=== PATIENT | female | born 1950 | race Caucasian/White ===

== ENCOUNTER → 2017-05-01 | Outpatient (CLI) | payer MEDICARE, MEDICAID, SELFPAY | PROVIDERS: Family Provider Family Medicine; Visit Provider Orthopaedic Surgery | DX: S42.255D Nondisplaced fracture of greater tuberosity of left humerus, subsequent encounter for fracture with routine healing (principal) | CPT/HCPCS: 73030 ==

== ENCOUNTER 2017-05-09 09:59 | Day surgery (SDC) | payer MEDICARE, MEDICAID, SELFPAY | END 2017-05-09 10:30 | disposition home or self-care (01) | PROVIDERS: Family Provider Family Medicine; Visit Provider Nurse Anesthetist, Certified Registered | DX: M51.16 Intervertebral disc disorders with radiculopathy, lumbar region (principal) | CPT/HCPCS: 62323; J1030; Q9966 ==

== ENCOUNTER 2017-06-02 19:49 | Observation (INO) | payer MEDICARE, MEDICAID, SELFPAY ==
[2017-06-02 19:49] VITALS: BP 159/86; PULSE 68; RESP 18; TEMP 36.9; O2SAT 92; BMI 24.4
--- NOTE | 2017-06-02 19:59 | XR_ITS ---
XR chest 2V HISTORY: ITS.REASON: CHEST PAIN ORDERING PHYSICIAN: Gaston Palacios MD PATIENT AGE: 66 years COMPARISON: None available FINDINGS: The cardiomediastinal silhouette and pulmonary vascularity are within normal limits. No lobar consolidation or collapse is evident. On the lateral view there is a 11 mm nodular opacity overlying the T6 vertebral body inferiorly which may be related to an overlying osteophyte. CT or follow-up radiograph may confirm. The remaining lungs are clear. No acute bony anomalies. IMPRESSION: 1. No acute finding. 2. Nodular opacity overlying T6 which may be due to an overlying osteophyte. Follow-up may confirm
[2017-06-02 20:16] LABS: Basophils % 0.3 % (0.1-2.0); Eosinophils # 0.1 K/mm3 (0.0-0.4); Eosinophils % 2.2 % (0.1-12.0); Lymphocytes # 2.2 K/mm3 (0.7-4.5); Lymphocytes % 33.4 K/mm3 (10-50); Mean Corpuscular HGB Conc 33.2 g/dL (31.8-35.4); Mean Corpuscular Hemoglobin 29.1 pg (27.0-31.2); Mean Corpuscular Volume 87.6 fl (81-99); Mean Platelet Volume 7.4 fl (7.4-10.4); Monocytes # 0.4 K/mm3 (0.1-1.0); Monocytes % 5.9 % (1.7-9.3); Neutrophils # 3.8 K/mm3 (1.8-7.8); Neutrophils % 58.2 % (37.0-80.0); Platelet Count 264 K/mm3 (142-424); Red Blood Count 4.45 M/mm3 (4.20-5.40); Red Cell Distribution Width 13.9 % (11.5-17.5); White Blood Count 6.5 K/mm3 (4.8-10.8)
[2017-06-02 20:43] LABS: Alanine Aminotransferase 15 U/L (12-78); Albumin Level 3.4 gm/dL (3.4-5.0); Alkaline Phosphatase 109 U/L (46-116); Anion Gap 10.2 mEq/L (5-15); Aspartate Amino Transferase 8 U/L (15-37); Bilirubin,Total 0.3 mg/dL (0.2-1.0); Blood Urea Nitrogen 20 mg/dL (7-18); Calcium 8.9 mg/dL (8.5-10.1); Carbon Dioxide 28 mmol/L (21.0-32.0); Chloride 105 mmol/L (98-107); Creatine Kinase 32 U/L (26-192); Creatinine Clearance Estimated 52 mL/min (0-300); Creatinine,Serum 1.11 mg/dL (0.55-1.02); Estimated Glomerular Filt Rate 49 ml/min (>60); GFR (African American) 60 ML/MIN (>60); Globulin 3.3 gm/dl (1.3-3.2); Glucose 121 mg/dL (74-106); Potassium 4.2 mmoL/L (3.5-5.1); Sodium 139 mmol/L (136-145); Total Protein,Serum 6.7 gm/dL (6.4-8.2); Troponin I < 0.02 ng/ml (0.00-0.06)
[2017-06-02 20:46] LABS: CKMB Relative Index 1.6 U/L (0-4.0); Creatine Kinase MB < 0.5 mg/ml (0.0-3.6)
--- NOTE | 2017-06-02 22:19 | HMH.EDCP ---
ED Disposition Clinical Impression: Chest pain Qualifiers: Chest pain type: precordial pain Qualified Code(s): R07.2 - Precordial pain Disposition: Admitted as Observation Condition on Discharge: Good Referrals: Gaston Palacios MD [Primary Care Provider] - - Critical Care Critical Care Time: No Attestation: On 06/02/17, the high probability of a clinically significant, sudden or life threatening deterioration of the following system(s) required my full and direct attention, intervention and personal management. The time I documented below is in addition to time spent performing reported procedures but includes the following listed in this critical care notation. Medical Decision Making - Medical Records Medical records reviewed: Yes: I reviewed the patient's medical records. Vital Signs: 06/02/17 19:49 Temperature 98.4 F Temperature Source Oral Pulse Rate [Apical] 68 Respiratory Rate 18 Blood Pressure [Right Arm] 159/86 Blood Pressure Mean [Right Arm] 110 Blood Pressure Source [Right Arm] Automatic Cuff Blood Pressure Position [Right Arm] Sitting 02 Sat by Pulse Oximetry 92 L Oxygen Delivery Method Room Air - Lab Data Lab results reviewed: Yes: I reviewed the patient's lab results. Lab Results 06/02/17 20:10: WBC 6.5, RBC 4.45, Hgb 13.0, Hct 39.0, MCV 87.6, MCH 29.1, MCHC 33.2, RDW 13.9, Plt Count 264, MPV 7.4, Neut % (Auto) 58.2, Lymph % (Auto) 33.4, [place] % (Auto) 5.9, Eos % (Auto) 2.2, Baso % (Auto) 0.3, Neut # (Auto) 3.8, Lymph # (Auto) 2.2, [place] # (Auto) 0.4, Eos # (Auto) 0.1, Baso # (Auto) 0.0 06/02/17 20:10: Sodium 139, Potassium 4.2, Chloride 105, Carbon Dioxide 28, Anion Gap 10.2, BUN 20 H, Creatinine 1.11 H, Estimated Creat Clear 52, Estimated GFR 49 L, Est GFR ( Amer) 60, Glucose 121 H, Calcium 8.9, Total Bilirubin 0.3, AST 8 L, ALT 15, Alkaline Phosphatase 109, Total Creatine Kinase 32, CK-MB (CK-2) < 0.5, CK-MB (CK-2) Rel Index 1.6, Troponin I < 0.02, Total Protein 6.7, Albumin 3.4, Globulin 3.3 H, Albumin/Globulin Ratio 1.0 L Result diagrams: 06/02/17 20:10 06/02/17 20:10 Orders (Tests/Meds): ORDERS Category Date Time Status XR chest 2V Stat Exams 06/02/17 19:59 Taken ECG Request by /Jeffery Stat Y 06/02/17 19:59 Ordered - Radiology Data #1 Image(s): Chest Image Reviewed: Yes I reviewed the patient's radiology image Preliminary Findings: Normal/NAD - ECG Data Tracing #1 I reviewed this ECG and interpreted as documented below: Ischemic changes: non-specific ST-T wave changes - Physician Consults Physician Consulted: codie Reason -: Admission - Daniel Inquiry Pt receiving controlled substance: No Chest Pain HPI - General Chief Complaint: Chest Pain Stated Complaint: CHEST PAIN Time Seen by Provider: 06/02/17 22:19 Mode of Arrival: Ambulatory Source of Information: Patient, Relative, Medical Record Limitations: No Limitations Description of Symptoms (Recalled from ER Triage Doc. by RN): RIGHT SIDED CHEST PAIN WITH COUGH - History of Present Illness HPI narrative: new onset of ant chest pain today - intermittant and at rest - hx of card disease with last cath 5 yrs ago - no stents complaint: chest pain Onset (ago): day(s) Duration: intermittent Activity at onset: during rest Pain location: substernal Severity: moderate Quality: sharp Pain radiation: none Risk Factors for CAD: Hypertension, Family Hx of CAD, Diabetes, Smoking Treatments prior to or on arrival for Cardiac Chest Pain: aspirin - BOBBI Score Non-Stemi Age of patient: 65 yrs or more Number of risk factors for CAD: Presence of 3 or more Prior coronary artery stenosis(seen in coronary angiography): Less than 50% ST-Segment deviation on ECG (more than 1 min): Absent Prior aspirin intake: ASA intake in the last 7 days Severe anginal chest pain: Two or more episodes in last 24 hours Elevated cardiac markers(CK-MB or troponin): Absent Non-Stemi Risk Score: 4 - Related
[2017-06-02 22:27] VITALS: PULSE 67
[2017-06-02 23:34] VITALS: BP 166/89; PULSE 65; RESP 20; TEMP 36.4; O2SAT 94; BMI 28.3
[2017-06-03] VITALS (29 sets, daily range): BP systolic 131–168; BP diastolic 59–80; PULSE 60–77; RESP 18–22; TEMP 36.5–36.8; O2SAT 91–94
[2017-06-03 00:06] LABS: Troponin I < 0.02 ng/ml (0.00-0.06)
--- NOTE | 2017-06-03 05:28 | PC.NURSE ---
PT NEW ADMIT THIS SHIFT. PT HAS HAD NO FURTHER COMPLAINTS OF CHEST PAIN SINCE ADMISSION TO UNIT. SB/SR ON TELEMETRY. PT HAS SISTER IN LAW AT [facility]. PT INDEPENDENT IN CARE. PT WAS NOT ABLE TO LIST ALL HOME MEDS. PT HAS SLEPT.
--- NOTE | 2017-06-03 06:56 | CA_ITS ---
PROCEDURE: 2-D M-mode and color Doppler study INDICATIONS FOR THE TEST: Chest pain X COPDX Heart Murmur Tobacco SmokingX Palpitations Fatigue Syncope Edema HypertensionXDiabetes Mellitus Rheumatic Fever SOBXDOE Obesity Hyperlipidemia Family History HD Additional History PATIENT INFORMATION HEIGHT: 65 WEIGHT:170 GENDER: Female B/P:159/86 2-D/M-MODE INTERPRETATION: 2-D MEASUREMENTS OBSERVED VALUES IN CMS Right Ventricular Dimension (RVDd) .7 Interventricular Septum (Thickness)(IVsd) 1.0 Left Ventricular Internal Dimensions(LVIDd) 5.0 Left Ventricular Posterior Wall (Thickness)(LVPWd) 1.0 Aortic Root 3.6 Aortic Cusp Separation 1.7 Left Atrial Dimensions (LAD) 2.8 2D 1. Left atrium is mildly enlarged, left ventricle is normal size, there is mild qualitative concentric left ventricular hypertrophy present, visually estimated ejection fraction 55% with no obvious regional wall motion abnormality. 2. The right atrium and right ventricle are relatively normal size and function. 3. The aortic valve is minimally thickened and fibrosed. 4. The mitral and tricuspid valve leaflets are minimally thickened. 5. The pulmonic valve is poorly visualized. 6. No significant pericardial effusion noted. DOPPLER INTERROGATION: Doppler interrogation of the aortic, mitral and tricuspid valvular presence of mild mitral and tricuspid regurgitation, tricuspid and jet velocity insufficient for calculation of the right ventricular systolic pressure, grade 1 diastolic dysfunction seen without tissue Doppler evidence of raised left atrial pressure. CONCLUSION: 1. Mildly enlarged left atrium, normal left ventricular size, mild qualitative concentric left ventricular hypertrophy, visually estimated ejection fraction 55% with no obvious regional wall motion abnormality, grade 1 diastolic dysfunction seen without tissue Doppler evidence of raised left atrial pressure. 2. Mild mitral and tricuspid regurgitation. 3. Pericardial effusion noted.
--- NOTE | 2017-06-03 07:20 | PC.NURSE ---
PATIENT IS GETTING HER ECHO AT THE BEDSIDE AT THIS TIME.
[2017-06-03 07:28] LABS: Basophils % 0.6 % (0.1-2.0); Eosinophils # 0.2 K/mm3 (0.0-0.4); Eosinophils % 2.8 % (0.1-12.0); Hematocrit 40.5 % (37.0-47.0); Hemoglobin 13.2 g/dL (12.2-16.2); Lymphocytes # 2.2 K/mm3 (0.7-4.5); Lymphocytes % 33.5 K/mm3 (10-50); Mean Corpuscular HGB Conc 32.6 g/dL (31.8-35.4); Mean Corpuscular Hemoglobin 28.6 pg (27.0-31.2); Mean Corpuscular Volume 87.8 fl (81-99); Mean Platelet Volume 7.7 fl (7.4-10.4); Monocytes # 0.4 K/mm3 (0.1-1.0); Monocytes % 6.5 % (1.7-9.3); Neutrophils # 3.7 K/mm3 (1.8-7.8); Neutrophils % 56.5 % (37.0-80.0); Platelet Count 237 K/mm3 (142-424); Red Blood Count 4.61 M/mm3 (4.20-5.40); Red Cell Distribution Width 14.1 % (11.5-17.5); White Blood Count 6.6 K/mm3 (4.8-10.8)
[2017-06-03 07:37] LABS: Chol/HDL Ratio 3.4 (1-3.5); Cholesterol 151 mg/dL (140-200); HDL Cholesterol 45 mg/dL (29-89); LDL Cholesterol 69 mg/dL (0-130); Triglycerides 186 mg/dL (30-200); VLDL Cholesterol 37 mg/dL (0-40)
--- NOTE | 2017-06-03 07:43 | PC.NURSE ---
Reba PORRAS IS NOW AT THE BEDSIDE SPEAKING TO THE PATIENT.
--- NOTE | 2017-06-03 08:43 | HMH.CARDCON2 ---
History of Present Illness Consult date: 06/03/17 Requesting physician: Herminio Whatley Consult reason: chest pain Chief complaint: Chest pains History of present illness: 66-year-old white female with diabetes, hypertension, hyperlipidemia and continued tobacco use presented with recurrent episodes of chest pain starting yesterday morning. Symptoms are right sided without radiation and last about 10-15 seconds before dissipating. Symptoms would recur within a few minutes. Patient denies any near-syncope or syncope like symptoms, recent nausea, vomiting or diarrhea. She has had some cold symptoms recently with some increase in shortness of breath and noticeable wheezing. She denies any reflux or GERD symptoms. After workup in the ER patient was treated with Nitropaste which has relieved her symptoms overnight. Troponins have returned normal ?2. EKG is without acute changes. Cardiology consulted for a BOBBI score of 4. Review of Systems - Review of Systems Review of systems:: pertinent systems reviewed and negative unless documented below - *Neurologic Denies seizure-like activity [facility] History Medical History: Reports:: Diabetes Mellitus Type 2, MRSA Denies:: Cancer, Diabetes Mellitus Type 1 Other Medical History: Reports: Anemia, Arthritis, Cataracts Other Surgeries: Yes: Appendectomy, Hysterectomy-Total Amputation: No Fractures: No - *Social History Educational Level: Attended High School Smoking Status: Current every day smoker Tobacco Type: cigarettes # Packs/Day (cigarettes): 1 #Yrs smoked (if former smoker): 4 Alcohol Intake: never Occupational Status: retired Housing: apartment Household Members: other - Psychiatric History Expresses thoughts of harming self/others: None Suicide Plan Description: No Plan *Family Hx:: Coronary Artery Disease, Diabetes, Heart Attack, Hypertension Meds Home Medications Medication Instructions Recorded Confirmed Type Atorvastatin Calcium [Lipitor 40mg 40 mg PO HS 06/03/17 06/03/17 History Tablet] Esomeprazole Magnesium [Nexium] 40 mg PO DAILY 06/03/17 06/03/17 History Fluoxetine HCl 20 mg PO DAILY 06/03/17 06/03/17 History Fluticasone/Salmeterol [Advair 1 puff INHALATION DAILY 06/03/17 06/03/17 History 500/50mcg diskus] Furosemide [Furosemide 20mg Tab] 20 mg PO DAILY 06/03/17 06/03/17 History Lisinopril [Prinivil 5mg Tablet] 5 mg PO DAILY 06/03/17 06/03/17 History Metformin HCl [Metformin 500mg 500 mg PO BID 06/03/17 06/03/17 History Tablet] Metoprolol Tartrate [Lopressor 25 mg PO HS 06/03/17 06/03/17 History 25mg tablet] Polyethylene Glycol 3350 [PEG 3350 17 gm PO DAILYP PRN 06/03/17 06/03/17 History 17gm Packet] Ropinirole HCl [Requip 1mg Tablet] 1 mg PO HS 06/03/17 06/03/17 History Tramadol HCl [Ultram 50mg 50 mg PO TIDP PRN 06/03/17 06/03/17 History tablet] Umeclidinium [place] [Incruse 1 puff IH DAILY 06/03/17 06/03/17 History Ellipta] buPROPion HCl [Wellbutrin Sr] 150 mg PO BID 06/03/17 06/03/17 History dilTIAZem HCl [Dilt-Xr] 240 mg PO DAILY 06/03/17 06/03/17 History Allergies Allergy/AdvReac Type Severity Reaction Status Date / Time hydrochlorothiazide Allergy Severe ITCHING Verified 06/02/17 19:55 amlodipine Allergy Intermediate ITCHING Verified 06/02/17 19:55 Exam Vital signs and Labs for Last 24 Hours: Temp Pulse Resp BP Pulse Ox 98.2 F 64 18 165/79 93 L 06/03/17 07:42 06/03/17 07:42 06/03/17 08:28 06/03/17 07:42 06/03/17 07:42 Laboratory Results - last 24 hr 06/02/17 23:30: Troponin I < 0.02 06/03/17 06:56: WBC 6.6, RBC 4.61, Hgb 13.2, Hct 40.5, MCV 87.8, MCH 28.6, MCHC 32.6, RDW 14.1, Plt Count 237, MPV 7.7, Neut % (Auto) 56.5, Lymph % (Auto) 33.5, [place] % (Auto) 6.5, Eos % (Auto) 2.8, Baso % (Auto) 0.6, Neut # (Auto) 3.7, Lymph # (Auto) 2.2, [place] # (Auto) 0.4, Eos # (Auto) 0.2, Baso # (Auto) 0.0 06/03/17 06:56: Triglycerides 186, Cholesterol 151, LDL Cholesterol 69, VLDL Cholesterol 37, H
--- NOTE | 2017-06-03 08:47 | P.CONS_ITS ---
History of Present Illness Consult date: 06/03/17 Requesting physician: Herminio Whatley Consult reason: chest pain Chief complaint: Chest pains History of present illness: 66-year-old white female with diabetes, hypertension, hyperlipidemia and continued tobacco use presented with recurrent episodes of chest pain starting yesterday morning. Symptoms are right sided without radiation and last about 10 -15 seconds before dissipating. Symptoms would recur within a few minutes. Patient denies any near-syncope or syncope like symptoms, recent nausea, vomiting or diarrhea. She has had some cold symptoms recently with some increase in shortness of breath and noticeable wheezing. She denies any reflux or GERD symptoms. After workup in the ER patient was treated with Nitropaste which has relieved her symptoms overnight. Troponins have returned normal ?2. EKG is without acute changes. Cardiology consulted for a BOBBI score of 4. Review of Systems - Review of Systems Review of systems:: pertinent systems reviewed and negative unless documented below - *Neurologic Denies seizure-like activity [facility] History Medical History: Reports:: Diabetes Mellitus Type 2, MRSA Denies:: Cancer, Diabetes Mellitus Type 1 Other Medical History: Reports: Anemia, Arthritis, Cataracts Other Surgeries: Yes: Appendectomy, Hysterectomy-Total Amputation: No Fractures: No - *Social History Educational Level: Attended High School Smoking Status: Current every day smoker Tobacco Type: cigarettes # Packs/Day (cigarettes): 1 #Yrs smoked (if former smoker): 4 Alcohol Intake: never Occupational Status: retired Housing: apartment Household Members: other - Psychiatric History Expresses thoughts of harming self/others: None Suicide Plan Description: No Plan *Family Hx:: Coronary Artery Disease, Diabetes, Heart Attack, Hypertension Meds Home Medications Medication Instructions Recorded Confirmed Type Atorvastatin Calcium [Lipitor 40mg 40 mg PO HS 06/03/17 06/03/17 History Tablet] Esomeprazole Magnesium [Nexium] 40 mg PO DAILY 06/03/17 06/03/17 History Fluoxetine HCl 20 mg PO DAILY 06/03/17 06/03/17 History Fluticasone/Salmeterol [Advair 1 puff INHALATION DAILY 06/03/17 06/03/17 History 500/50mcg diskus] Furosemide [Furosemide 20mg Tab] 20 mg PO DAILY 06/03/17 06/03/17 History Lisinopril [Prinivil 5mg Tablet] 5 mg PO DAILY 06/03/17 06/03/17 History Metformin HCl [Metformin 500mg 500 mg PO BID 06/03/17 06/03/17 History Tablet] Metoprolol Tartrate [Lopressor 25 mg PO HS 06/03/17 06/03/17 History 25mg tablet] Polyethylene Glycol 3350 [PEG 3350 17 gm PO DAILYP PRN 06/03/17 06/03/17 History 17gm Packet] Ropinirole HCl [Requip 1mg Tablet] 1 mg PO HS 06/03/17 06/03/17 History Tramadol HCl [Ultram 50mg 50 mg PO TIDP PRN 06/03/17 06/03/17 History tablet] Umeclidinium [place] [Incruse 1 puff IH DAILY 06/03/17 06/03/17 History Ellipta] buPROPion HCl [Wellbutrin Sr] 150 mg PO BID 06/03/17 06/03/17 History dilTIAZem HCl [Dilt-Xr] 240 mg PO DAILY 06/03/17 06/03/17 History Allergies Allergy/AdvReac Type Severity Reaction Status Date / Time hydrochlorothiazide Allergy Severe ITCHING Verified 06/02/17 19:55 amlodipine Allergy Intermediate ITCHING Verified 06/02/17 19:55 Exam Vital signs and Labs for Last 24 Hours: Temp Pulse Resp BP Pulse Ox 98.2 F 64 1
--- NOTE | 2017-06-03 08:52 | HMH.PHAVTE ---
[facility] Pharmacy VTE Monitoring - Patient Demographics Admission date: 06/02/17 Report Date: 06/03/17 Time: 08:52 Allergies/Adverse Reactions: Patient Allergies hydrochlorothiazide Allergy (Severe, Verified 06/02/17 19:55) ITCHING amlodipine Allergy (Intermediate, Verified 06/02/17 19:55) ITCHING Height: 1.65 m Weight: 77.4 kg Patient Problems: Current Active Problems Chest pain (Acute) Diabetes mellitus type 2 in nonobese (Acute) Tobacco use disorder, continuous (Acute) Hypertension (Acute) Hyperlipidemia (Acute) - VTE Risk Labs: VTE Related Lab Results Hgb 13.2 g/dL (12.2-16.2) 06/03/17 06:56 Hct 40.5 % (37.0-47.0) 06/03/17 06:56 Plt Count 237 K/mm3 (142-424) 06/03/17 06:56 BUN 20 mg/dL (7-18) H 06/02/17 20:10 Creatinine 1.11 mg/dL (0.55-1.02) H 06/02/17 20:10 Estimated Creat Clear 52 mL/min (0-300) 06/02/17 20:10 Was VTE Risk Assessment Performed: Yes VTE Score: 3 VTE Risk Level: Low Risk Clinical Trial Participant: No - Prophylaxis VTE Prophylaxis Ordered?: Yes Types of VTE Prophylaxis: TEDS Knee High Location of Applied Device: Bilateral Lower Extremeties
--- NOTE | 2017-06-03 09:18 | IR_ITS ---
CARDIAC CATHETERIZATION DATE OF CATHETERIZATION:06/03/2017 12:24 PM PROCEDURES: 1. Left heart catheterization 2. Left ventriculogram 3. Selective coronary angiogram INDICATION FOR TEST: 1. BOBBI score 4 2. Recurrent admission to the hospital for angina presumed unstable Informed consent was obtained prior to the procedure. COMPLICATIONS: None ESTIMATED BLOOD LOSS: Less than 10 ml. TECHNIQUE: One percent lidocaine used to anesthetize the right anterior aspect of the wrist. The right radial artery was accessed via the Seldinger technique. A 6 K[place]ili sheath was placed in the right radial artery. 2.5 mg of verapamil, 800 mcg of nitroglycerin and 5000 U Heparin were given through the arterial sheath. The trap catheter was also used to perform left heart catheterization and left ventriculography. At the end of the procedure the patient was transferred to the post-op holding area in stable condition for arterial sheath removal. ANGIOGRAPHIC RESULTS: 1. The left main artery normal 2. The left anterior descending artery is tortuous but normal 3. The circumflex artery is dominant tortuous and normal 4. The right coronary artery nondominant normal 5. The LABOY ventriculogram reveals slightly hyperdynamic at 70% 6. The left ventricular end-diastolic pressure tolerated at 20 mmHg IMPRESSION: 1. No evidence of atherosclerotic heart disease however patient has tortuous coronary arteries consistent with hypertensive heart disease which is further supported by her hyperdynamic ventricle and elevated LVEDP. PLAN: 1. Control of hypertension 2. Antianginal medications 3. Verapamil or diltiazem combined with a beta profirio and diuretic should reduce patient's ejection fraction blood pressure and LVEDP
--- NOTE | 2017-06-03 09:20 | HMH.HP ---
*Admission Date: 06/02/17 *Chief complaint: chest pain *History of present illness: Ms Oh is a 66-year-old white female with diabetes, hypertension, hyperlipidemia and continued tobacco use presented with recurrent episodes of chest pain starting yesterday morning. Symptoms are right sided without radiation and last about 10-15 seconds before dissipating. Symptoms would recur within a few minutes. Patient denies any near-syncope or syncope like symptoms, recent nausea, vomiting or diarrhea. She has had some cold symptoms recently with some increase in shortness of breath and noticeable wheezing. She denies fever, reflux or GERD symptoms. After workup in the ER patient was treated with Nitropaste which relieved her symptoms overnight. Troponins returned normal ?2. EKG is without acute changes. Cardiology consulted for a BOBBI score of 4. [facility] History Medical History: Reports:: Chronic Obstructive Pulmonary Disease (COPD), Depression, Diabetes Mellitus Type 2, Gastroesophageal Reflux Disease(GERD), Hypertension, MRSA Denies:: Cancer, Diabetes Mellitus Type 1 Other Medical History: Reports: Anemia, Arthritis, Cataracts Laterality Cases: Bilateral: Cataract Other Surgeries: Yes: Appendectomy, Hysterectomy-Total, Tubal Ligation Amputation: No Fractures: No Comment: cholecystectomy - *Social History Educational Level: Attended High School Smoking Status: Current every day smoker Tobacco Type: cigarettes # Packs/Day (cigarettes): 1 #Yrs smoked (if former smoker): 4 Alcohol Intake: never Occupational Status: retired Housing: apartment Household Members: other - Psychiatric History Expresses thoughts of harming self/others: None Suicide Plan Description: No Plan Pschychiatric History:: Reports:: Anxiety, Depression *Family Hx:: Coronary Artery Disease, Diabetes, Heart Attack, Hypertension Review of Systems - Constitutional Denies body ache(s), Denies fever(s) - ENT Denies ear pain, Denies sore throat - *Cardiovascular Reports chest pain, Reports chest pain at rest, Reports chest pain with activity, Denies shortness of breath, Denies generalized swelling, Denies irregular heart rhythm, Denies fainting - *Respiratory Reports chest congestion, Reports cough, Reports wheezing, Denies shortness of breath, Denies coughing up blood - *Gastrointestinal Denies abdominal pain, Denies change in bowel habits, Denies change in stools, Denies constipation, Denies loose stools, Denies heartburn, Denies heartburn, Denies black, tarry stools, Denies vomiting - *Musculoskeletal Denies abnormal walking, Denies joint pain, Denies back pain, Denies body aches - *Neurologic Denies headache(s), Denies seizure-like activity Meds Home Medications Medication Instructions Recorded Confirmed Type Atorvastatin Calcium [Lipitor 40mg 40 mg PO HS 06/03/17 06/03/17 History Tablet] Esomeprazole Magnesium [Nexium] 40 mg PO DAILY 06/03/17 06/03/17 History Fluoxetine HCl 20 mg PO DAILY 06/03/17 06/03/17 History Fluticasone/Salmeterol [Advair 1 puff INHALATION DAILY 06/03/17 06/03/17 History 500/50mcg diskus] Furosemide [Furosemide 20mg Tab] 20 mg PO DAILY 06/03/17 06/03/17 History Lisinopril [Prinivil 5mg Tablet] 5 mg PO DAILY 06/03/17 06/03/17 History Metformin HCl [Metformin 500mg 500 mg PO BID 06/03/17 06/03/17 History Tablet] Metoprolol Tartrate [Lopressor 25 mg PO HS 06/03/17 06/03/17 History 25mg tablet] Polyethylene Glycol 3350 [PEG 3350 17 gm PO DAILYP PRN 06/03/17 06/03/17 History 17gm Packet] Ropinirole HCl [Requip 1mg Tablet] 1 mg PO HS 06/03/17 06/03/17 History Tramadol HCl [Ultram 50mg 50 mg PO TIDP PRN 06/03/17 06/03/17 History tablet] Umeclidinium [place] [Incruse 1 puff IH DAILY 06/03/17 06/03/17 History Ellipta] buPROPion HCl [Wellbutrin Sr] 150 mg PO BID 06/03/17 06/03/17 History dilTIAZem HCl [Dilt-Xr] 240 mg PO DAILY 06/03/17 06/03/17 History Allergies Allergy/AdvReac Type Severi
--- NOTE | 2017-06-03 09:23 | P.HP_ITS ---
*Admission Date: 06/02/17 *Chief complaint: chest pain *History of present illness: Ms Oh is a 66-year-old white female with diabetes, hypertension, hyperlipidemia and continued tobacco use presented with recurrent episodes of chest pain starting yesterday morning. Symptoms are right sided without radiation and last about 10-15 seconds before dissipating. Symptoms would recur within a few minutes. Patient denies any near-syncope or syncope like symptoms, recent nausea, vomiting or diarrhea. She has had some cold symptoms recently with some increase in shortness of breath and noticeable wheezing. She denies fever, reflux or GERD symptoms. After workup in the ER patient was treated with Nitropaste which relieved her symptoms overnight. Troponins returned normal ?2. EKG is without acute changes. Cardiology consulted for a BOBBI score of 4. [facility] History Medical History: Reports:: Chronic Obstructive Pulmonary Disease (COPD), Depression, Diabetes Mellitus Type 2, Gastroesophageal Reflux Disease(GERD), Hypertension, MRSA Denies:: Cancer, Diabetes Mellitus Type 1 Other Medical History: Reports: Anemia, Arthritis, Cataracts Laterality Cases: Bilateral: Cataract Other Surgeries: Yes: Appendectomy, Hysterectomy-Total, Tubal Ligation Amputation: No Fractures: No Comment: cholecystectomy - *Social History Educational Level: Attended High School Smoking Status: Current every day smoker Tobacco Type: cigarettes # Packs/Day (cigarettes): 1 #Yrs smoked (if former smoker): 4 Alcohol Intake: never Occupational Status: retired Housing: apartment Household Members: other - Psychiatric History Expresses thoughts of harming self/others: None Suicide Plan Description: No Plan Pschychiatric History:: Reports:: Anxiety, Depression *Family Hx:: Coronary Artery Disease, Diabetes, Heart Attack, Hypertension Review of Systems - Constitutional Denies body ache(s), Denies fever(s) - ENT Denies ear pain, Denies sore throat - *Cardiovascular Reports chest pain, Reports chest pain at rest, Reports chest pain with activity , Denies shortness of breath, Denies generalized swelling, Denies irregular heart rhythm, Denies fainting - *Respiratory Reports chest congestion, Reports cough, Reports wheezing, Denies shortness of breath, Denies coughing up blood - *Gastrointestinal Denies abdominal pain, Denies change in bowel habits, Denies change in stools, Denies constipation, Denies loose stools, Denies heartburn, Denies heartburn, Denies black, tarry stools, Denies vomiting - *Musculoskeletal Denies abnormal walking, Denies joint pain, Denies back pain, Denies body aches - *Neurologic Denies headache(s), Denies seizure-like activity Meds Home Medications Medication Instructions Recorded Confirmed Type Atorvastatin Calcium [Lipitor 40mg 40 mg PO HS 06/03/17 06/03/17 History Tablet] Esomeprazole Magnesium [Nexium] 40 mg PO DAILY 06/03/17 06/03/17 History Fluoxetine HCl 20 mg PO DAILY 06/03/17 06/03/17 History Fluticasone/Salmeterol [Advair 1 puff INHALATION DAILY 06/03/17 06/03/17 History 500/50mcg diskus] Furosemide [Furosemide 20mg Tab] 20 mg PO DAILY 06/03/17 06/03/17 History Lisinopril [Prinivil 5mg Tablet] 5 mg PO DAILY 06/03/17 06/03/17 History Metformin HCl [Metformin 500mg 500 mg PO BID 06/03/17 06/03/17 History Tablet] Metoprolol Tartrate [Lopressor 25 mg PO HS 06/03/17 06/03/17 History 25mg tablet] Polyethylene Glycol 3350 [PEG 3350 17 gm PO DAILYP PRN 06/03/17
--- NOTE | 2017-06-03 12:15 | PC.NURSE ---
PATIENT NOW LEAVING OFF THE UNIT FOR A HEART CATH PROCEDURE.
--- NOTE | 2017-06-03 18:00 | PC.NURSE ---
PATIENT HAD A HEART CATH PROCEDURE TODAY AND NO STENTS PLACED, 6 FR. SHEATH, SITE IS RIGHT RADIAL WITH A TRACELET IN PLACE. THERE WAS 12ML OF AIR TO START OFF WITH AND AT 1513 2ML OF AIR WAS RELEASED AND SITE WAS UNREMARKABLE, DID WELL, THEN AT 1528 ANOTHER 2 ML RELEASED, SITE UNREMARKABLE, PATIENT SATS WAS LOW SO NASAL CANNULA WAS PLACED AT 2LPM AT THIS TIME. SATS BETTER AT 93%. 1543- 2ML OF AIR RELEASED SITE UNREMARKABLE, 1613 2ML RELEASED AND SITE REMAINED UNREMARKABLE, 1728 2 ML OF AIR RELEASED AND SITE WAS UNREMARKABLE, 1743 2 ML RELEASED AND NOW AT 0 ML WAITED 15 MINUTES AND REMOVED THE TRACELET. 1800 TRACELET REMOVED, SITE IS LOOKS GOOD, LITTLE SWOLLEN AT THE INJECTION SITE, PATIENT SAID IT WAS SORE, SITE CLEANED WITH WARM WASH CLOTH AND NONSTICK DRESSING AND TEGADERM APPLIED TO THE SITE. PATIENT TOLERATED PROCEDURE WELL.
[2017-06-04] VITALS: BP 133/58; PULSE 73; PULSE 75; RESP 18; TEMP 36.8; O2SAT 94
[2017-06-04 03:27] VITALS: O2SAT 92
[2017-06-04 04:00] VITALS: BP 133/67; PULSE 68; PULSE 69; RESP 18; TEMP 36.8; O2SAT 91
--- NOTE | 2017-06-04 04:44 | PC.NURSE ---
PT HAS SLEPT. NO COMPLAINTS OF PAIN. RIGHT WRIST WITH DRSG INTACT. SLIGHT SWELLING AND BRUISING NOTED. NSR ON TELEMETRY. AMBULATORY.
[2017-06-04 06:13] VITALS: O2SAT 91
[2017-06-04 07:09] LABS: Anion Gap 12.9 mEq/L (5-15); Blood Urea Nitrogen 11 mg/dL (7-18); Carbon Dioxide 28 mmol/L (21.0-32.0); Chloride 104 mmol/L (98-107); Creatinine Clearance Estimated 69 mL/min (0-300); Creatinine,Serum 0.81 mg/dL (0.55-1.02); Estimated Glomerular Filt Rate 71 ml/min (>60); GFR (African American) 86 ML/MIN (>60); Glucose 114 mg/dL (74-106); Potassium 3.9 mmoL/L (3.5-5.1); Sodium 141 mmol/L (136-145)
--- NOTE | 2017-06-04 07:55 | P.PN_ITS ---
Internal Medicine - PN: Subj *Date: 06/04/17 *Time: 07:53 Interval history: Patient is feeling well this morning. She states she has no chest pain or shortness of breath. She had a Heart cath yesterday and needed no stenting. Cardiology has cleared her to go home today and she is anxious to get home. Exam Vital signs and Labs for Last 24 Hours: Temp Pulse Resp BP Pulse Ox 98.2 F 69 18 133/67 91 L 06/04/17 04:00 06/04/17 04:00 06/04/17 04:00 06/04/17 04:00 06/04/17 06:13 Laboratory Results - last 24 hr 06/04/17 06:08: Sodium 141, Potassium 3.9, Chloride 104, Carbon Dioxide 28, Anion Gap 12.9, BUN 11 D, Creatinine 0.81 D, Estimated Creat Clear 69, Estimated GFR 71, Est GFR ( Amer) 86 D, Glucose 114 H I & O for Last 24 hours: Intake & Output 06/01/17 06/02/17 06/03/17 06/04/17 11:59 11:59 11:59 11:59 Intake Total 245 / 245 840 / 840 Output Total 1450 / 1450 Balance 245 / 245 -610 / -610 Weight 170 lb 10.205 oz 173 lb 8.061 oz - Constitutional no acute distress - *Routine Respiratory Exam Present: decreased breath sounds - *Routine Cardiovascular Exam Present: RRR - *Routine Abdominal Exam Present: soft, normoactive bowel sounds. Absent: tenderness - *Routine Extremities Exam Absent: edema Assessment and Plan (1) Diabetes mellitus type 2 in nonobese Current visit: Yes Status: Acute Category: Medical Code(s): E11.9 - Type 2 diabetes mellitus without complications (2) Tobacco use disorder, continuous Current visit: Yes Status: Acute Category: Medical Code(s): F17.209 - Nicotine dependence, unspecified, with unspecified nicotine-induced disorders (3) Hypertension Current visit: Yes Status: Acute Category: Medical Code(s): I10 - Essential (primary) hypertension (4) Hyperlipidemia Current visit: Yes Status: Acute Category: Medical Code(s): E78.5 - Hyperlipidemia, unspecified (5) Chest pain Current visit: Yes Status: Acute Qualifiers: Chest pain type: precordial pain Qualified Code(s): R07.2 - Precordial pain Category: Medical Code(s): R07.9 - Chest pain, unspecified (6) Chronic bronchitis Current visit: Yes Status: Chronic Category: Medical Code(s): J42 - Unspecified chronic bronchitis (7) COPD (chronic obstructive pulmonary disease) Current visit: Yes Status: Chronic Category: Medical Code(s): J44.9 - Chronic obstructive pulmonary disease, unspecified - Assessment and plan all Dx Assessment and Plan for all problems:: Patient can be discharged today. Cardiology recommends control of hypertension , antianginal medications, verapamil or diltiazem combined with a beta porfirio and diuretic should reduce patient's ejection fraction blood pressure and LVEDP. Will discuss disposition with Dr. Palacios.
[2017-06-04 08:00] VITALS: BP 131/64; PULSE 76; PULSE 80; RESP 16; TEMP 36.3; O2SAT 94
[2017-06-04 12:00] VITALS: BP 151/71; PULSE 76; RESP 18; TEMP 36.8; O2SAT 95
--- NOTE | 2017-06-09 13:59 | HMH.DCSUM ---
General - General Admission date: 06/02/17 Discharge date: 06/04/17 HPI HPI: Ms Oh is a 66-year-old white female with diabetes, hypertension, hyperlipidemia and continued tobacco use presented with recurrent episodes of chest pain starting yesterday morning. Symptoms are right sided without radiation and last about 10-15 seconds before dissipating. Symptoms would recur within a few minutes. Patient denies any near-syncope or syncope like symptoms, recent nausea, vomiting or diarrhea. She has had some cold symptoms recently with some increase in shortness of breath and noticeable wheezing. She denies fever, reflux or GERD symptoms. After workup in the ER patient was treated with Nitropaste which relieved her symptoms overnight. Troponins returned normal ?2. EKG is without acute changes. Cardiology consulted for a BOBBI score of 4. Objective Vital signs: Temp Pulse Resp BP Pulse Ox 98.2 F 76 18 151/71 95 06/04/17 12:00 06/04/17 12:00 06/04/17 12:00 06/04/17 12:00 06/04/17 12:00 Narrative: - Constitutional no acute distress - *Routine HEENT Exam Head: Present: normocephalic, atraumatic Eye: Present: PERRL ENT: Present: mucous membranes moist - *Routine Neck Exam Absent: carotid bruit, lymphadenopathy, thyromegaly - *Routine Respiratory Exam Present: decreased breath sounds Comments: bilateral wheezing - *Routine Abdominal Exam Present: soft, normoactive bowel sounds. Absent: tenderness, distended, guarding - *Routine Extremities Exam Absent: edema, calf tenderness - *Routine Neurological Exam Present: alert, oriented X3 Hospital Course Hospital Course: Cardiology saw the patient and planned a heart cath. Tobacco cessation was discussed. The heart cath showed no evidence of atherosclerotic heart disease, however the patient had tortuous coronary arteries consistent with hypertensive heart disease which was further supported by her hyperdynamic ventricle and elevated LVEDP. Cardiology recommended control of hypertension and antianginal medications. They felt verapamil or diltiazem combined with a beta porfirio and diuretic should reduce patient's ejection fraction blood pressure and LVEDP. Her CP resolved and she was stable to be discharged home. DS: Diagnosis - Discharge Diagnosis (1) Chest pain Status: Acute (2) Diabetes mellitus type 2 in nonobese Status: Acute (3) Tobacco use disorder, continuous Status: Acute (4) Hypertension Status: Acute (5) Hyperlipidemia Status: Acute (6) Chronic bronchitis Status: Chronic (7) COPD (chronic obstructive pulmonary disease) Status: Chronic Meds Home Medications Medication Instructions Recorded Confirmed Type Atorvastatin Calcium [Lipitor 40mg 40 mg PO HS 06/03/17 06/03/17 History Tablet] Esomeprazole Magnesium [Nexium] 40 mg PO DAILY 06/03/17 06/03/17 History Fluoxetine HCl 20 mg PO DAILY 06/03/17 06/03/17 History Fluticasone/Salmeterol [Advair 1 puff INHALATION DAILY 06/03/17 06/03/17 History 500/50mcg diskus] Furosemide [Furosemide 20mg Tab] 20 mg PO DAILY 06/03/17 06/03/17 History Lisinopril [Prinivil 5mg Tablet] 5 mg PO DAILY 06/03/17 06/03/17 History Metformin HCl [Metformin 500mg 500 mg PO BID 06/03/17 06/03/17 History Tablet] Metoprolol Tartrate [Lopressor 25 mg PO HS 06/03/17 06/03/17 History 25mg tablet] Polyethylene Glycol 3350 [PEG 3350 17 gm PO DAILYP PRN 06/03/17 06/03/17 History 17gm Packet] Ropinirole HCl [Requip 1mg Tablet] 1 mg PO HS 06/03/17 06/03/17 History Tramadol HCl [Ultram 50mg 50 mg PO TIDP PRN 06/03/17 06/03/17 History tablet] Umeclidinium [place] [Incruse 1 puff IH DAILY 06/03/17 06/03/17 History Ellipta] buPROPion HCl [Wellbutrin Sr] 150 mg PO BID 06/03/17 06/03/17 History dilTIAZem HCl [Dilt-Xr] 240 mg PO DAILY 06/03/17 06/03/17 History Allergies Allergy/AdvReac Type Severity Reaction Status Date / Time hydro
--- NOTE | 2017-06-09 14:03 | P.DS_ITS ---
General - General Admission date: 06/02/17 Discharge date: 06/04/17 HPI HPI: Ms Oh is a 66-year-old white female with diabetes, hypertension, hyperlipidemia and continued tobacco use presented with recurrent episodes of chest pain starting yesterday morning. Symptoms are right sided without radiation and last about 10-15 seconds before dissipating. Symptoms would recur within a few minutes. Patient denies any near-syncope or syncope like symptoms, recent nausea, vomiting or diarrhea. She has had some cold symptoms recently with some increase in shortness of breath and noticeable wheezing. She denies fever, reflux or GERD symptoms. After workup in the ER patient was treated with Nitropaste which relieved her symptoms overnight. Troponins returned normal ?2. EKG is without acute changes. Cardiology consulted for a BOBBI score of 4. Objective Vital signs: Temp Pulse Resp BP Pulse Ox 98.2 F 76 18 151/71 95 06/04/17 12:00 06/04/17 12:00 06/04/17 12:00 06/04/17 12:00 06/04/17 12:00 Narrative: - Constitutional no acute distress - *Routine HEENT Exam Head: Present: normocephalic, atraumatic Eye: Present: PERRL ENT: Present: mucous membranes moist - *Routine Neck Exam Absent: carotid bruit, lymphadenopathy, thyromegaly - *Routine Respiratory Exam Present: decreased breath sounds Comments: bilateral wheezing - *Routine Abdominal Exam Present: soft, normoactive bowel sounds. Absent: tenderness, distended, guarding - *Routine Extremities Exam Absent: edema, calf tenderness - *Routine Neurological Exam Present: alert, oriented X3 Hospital Course Hospital Course: Cardiology saw the patient and planned a heart cath. Tobacco cessation was discussed. The heart cath showed no evidence of atherosclerotic heart disease, however the patient had tortuous coronary arteries consistent with hypertensive heart disease which was further supported by her hyperdynamic ventricle and elevated LVEDP. Cardiology recommended control of hypertension and antianginal medications. They felt verapamil or diltiazem combined with a beta porfirio and diuretic should reduce patient's ejection fraction blood pressure and LVEDP. Her CP resolved and she was stable to be discharged home. DS: Diagnosis - Discharge Diagnosis (1) Chest pain Status: Acute (2) Diabetes mellitus type 2 in nonobese Status: Acute (3) Tobacco use disorder, continuous Status: Acute (4) Hypertension Status: Acute (5) Hyperlipidemia Status: Acute (6) Chronic bronchitis Status: Chronic (7) COPD (chronic obstructive pulmonary disease) Status: Chronic Meds Home Medications Medication Instructions Recorded Confirmed Type Atorvastatin Calcium [Lipitor 40mg 40 mg PO HS 06/03/17 06/03/17 History Tablet] Esomeprazole Magnesium [Nexium] 40 mg PO DAILY 06/03/17 06/03/17 History Fluoxetine HCl 20 mg PO DAILY 06/03/17 06/03/17 History Fluticasone/Salmeterol [Advair 1 puff INHALATION DAILY 06/03/17 06/03/17 History 500/50mcg diskus] Furosemide [Furosemide 20mg Tab] 20 mg PO DAILY 06/03/17 06/03/17 History Lisinopril [Prinivil 5mg Tablet] 5 mg PO DAILY 06/03/17 06/03/17 History Metformin HCl [Metformin 500mg 500 mg PO BID 06/03/17 06/03/17 History Tablet] Metoprolol Tartrate [Lopressor 25 mg PO HS 06/03/17 06/03/17 History 25mg tablet]
== END 2017-06-04 15:37 | disposition home or self-care (01) ==
LOC: ER 20:17 → 2ND 22:33
PROVIDERS: Internal Medicine; Admitting Provider Family Medicine; Emergency Provider Emergency Medicine; Family Provider Family Medicine; PCP Family Medicine; Visit Provider Family Medicine
DX: R07.9 Chest pain, unspecified (principal); I11.9 Hypertensive heart disease without heart failure; E11.9 Type 2 diabetes mellitus without complications; Z72.0 Tobacco use; J44.9 Chronic obstructive pulmonary disease, unspecified
CPT/HCPCS: 36415; 71046; 80048; 80053; 80061; 82550; 82553; 84484; 85025; 93005; 93041; 93306; 93458; 94640; 94761; 99152; 99284; C1725; C1769; G0378; J1644; Q9967

== ENCOUNTER → 2017-06-12 12:48 | Outpatient (CLI) | payer MEDICARE, MEDICAID, SELFPAY ==
--- NOTE | 2017-06-12 12:53 | XR_ITS ---
XR shoulder LT min 2V HISTORY: Follow-up fracture ITS.REASON: follow up left proximal humerus fracture ORDERING PHYSICIAN: Micheal Wesley MD PATIENT AGE: 66 years COMPARISON: 05/01/2017 FINDINGS: Nondisplaced greater tuberosity fracture left humerus once again noted. Fracture lines are less apparent consistent with healing. Shoulder remains located. IMPRESSION: Healing nondisplaced left humeral greater tuberosity fracture
== END ==
PROVIDERS: PCP Family Medicine; Visit Provider Orthopaedic Surgery
DX: S42.202D Unspecified fracture of upper end of left humerus, subsequent encounter for fracture with routine healing (principal)
CPT/HCPCS: 73030

== ENCOUNTER → 2017-07-01 11:09 | Outpatient (POV) | payer MEDICARE, MEDICAID, SELFPAY ==
[2017-07-01 11:26] VITALS: BP 151/67; PULSE 66; RESP 22; TEMP 36.2; O2SAT 92; BMI 29.2
--- NOTE | 2017-07-01 12:02 | HMH.PAINSOAP ---
[facility] Pain Management SOAP Note Subjective:: Patient is a pleasant 66-year-old white female who presents today to discuss her most recent lumbar epidural steroid injection. Patient had lumbar epidural steroid injection at L4-L5 back in April she is still having 50% relief of her pain. Patient is doing well with that as as well as her tramadol 50 mg 1 p.o. 3 times daily. States that she receives 60% relief with this medication and denies any side effects. Patient's CHANELLE #[id number] reviewed and appropriate. Patient's urine drug screen appropriate. Patient would like to discuss another lumbar epidural steroid injection given the increase functionality and pain relief that she has had with this latest one. ROS General: no recent weight change, no fever, no sleep disturbances Respiratory: no cough, no shortness of air, no recurring pulmonary infections Cardiovascular/Peripheral Vascular: No chest pain, No palpitations, no edema, no shortness of breath. Gastrointestinal: no incontinence, normal bowel movements reported Genitourinary: no incontinence Musculoskeletal: Low back pain Psychiatric: normal mood/ affect Neurological: [denies weakness in extremities], [denies balance issues] Objective:: Physical Exam General: Alert and oriented x3, no acute distress, pleasant and cooperative, [on room air] Lungs: Resps E/U, Symmetrical chest expansion, Musculoskeletal: Flexion and extension of lumbar spine somewhat guarded secondary to pain, deep tendon reflexes normal, strength in upper and lower extremities [5/5], [abnormal gait noted] Neurological: speech clear, tag marker equal, no gross sensory deficits Assessment:: Degenerative disc disease of the lumbar spine with lumbar radiculopathy Plan:: Patient is not in need of refills at this time for medication. Patient wishing to proceed with another lumbar epidural steroid injection at L4-L5. I believe that this will be beneficial for her due to the fact that she had such good relief from her last one. We will ask insurance to approve this. Patient's tried and failed anti-inflammatories, and physical therapy. This note was dictated using voice recognition software and may contain errors or omissions
--- NOTE | 2017-07-01 12:05 | P.CONS_ITS ---
[facility] Pain Management SOAP Note Subjective:: Patient is a pleasant 66-year-old white female who presents today to discuss her most recent lumbar epidural steroid injection. Patient had lumbar epidural steroid injection at L4-L5 back in April she is still having 50% relief of her pain. Patient is doing well with that as as well as her tramadol 50 mg 1 p.o. 3 times daily. States that she receives 60% relief with this medication and denies any side effects. Patient's CHANELLE #[id number] reviewed and appropriate. Patient's urine drug screen appropriate. Patient would like to discuss another lumbar epidural steroid injection given the increase functionality and pain relief that she has had with this latest one. ROS General: no recent weight change, no fever, no sleep disturbances Respiratory: no cough, no shortness of air, no recurring pulmonary infections Cardiovascular/Peripheral Vascular: No chest pain, No palpitations, no edema, no shortness of breath. Gastrointestinal: no incontinence, normal bowel movements reported Genitourinary: no incontinence Musculoskeletal: Low back pain Psychiatric: normal mood/ affect Neurological: [denies weakness in extremities], [denies balance issues] Objective:: Physical Exam General: Alert and oriented x3, no acute distress, pleasant and cooperative, [ on room air] Lungs: Resps E/U, Symmetrical chest expansion, Musculoskeletal: Flexion and extension of lumbar spine somewhat guarded secondary to pain, deep tendon reflexes normal, strength in upper and lower extremities [5/5], [abnormal gait noted] Neurological: speech clear, vamp maker equal, no gross sensory deficits Assessment:: Degenerative disc disease of the lumbar spine with lumbar radiculopathy Plan:: Patient is not in need of refills at this time for medication. Patient wishing to proceed with another lumbar epidural steroid injection at L4-L5. I believe that this will be beneficial for her due to the fact that she had such good relief from her last one. We will ask insurance to approve this. Patient's tried and failed anti-inflammatories, and physical therapy. This note was dictated using voice recognition software and may contain errors or omissions
[2017-07-01 13:06] LABS: Amphetamine/Metha Screen,Urine Negative ng/mL (<1000); Barbiturates Screen,Urine Negative ng/mL (<200); Benzodiazepines Screen,Urine Negative ng/mL (200); Cannabinoid Screen,Urine Negative ng/mL (<50); Cocaine Screen,Urine Negative ng/g (<300); Methadone Screen,Urine Negative ng/mL (<300); Opiate Screen,Urine Negative ng/mL (<300); Phencyclidine Screen,Urine Negative ng/mL (<25)
[2017-07-08 06:27] LABS: Opiates Negative (Cutoff=100)
== END ==
PROVIDERS: Family Provider Family Medicine; PCP Family Medicine; Visit Provider Clinical Nurse Specialist Family Health
DX: M54.16 Radiculopathy, lumbar region (principal)
CPT/HCPCS: 80305; 80361; 80365; 99212; G0480

== ENCOUNTER 2017-08-01 13:13 | Day surgery (SDC) | payer MEDICARE, MEDICAID, SELFPAY ==
[2017-08-01 13:35] VITALS: BP 149/75; PULSE 65; RESP 24; O2SAT 95; BMI 28.9
--- NOTE | 2017-08-01 13:42 | PC.NURSE ---
PATIENT ALERT/ORIENTED.... NO DISTRESS NOTED DURING ASSESSMENT. PATIENT BREATHING UNLABORED.
[2017-08-01 14:21] VITALS: BP 152/72; PULSE 64; O2SAT 95
--- NOTE | 2017-08-01 14:33 | HMH.PMPROC ---
- Procedure Date: 08/01/17 Time: 14:33 Anesthesiologist:: Dom Gillette MD Complications:: None Pre-procedure Diagnosis:: Degenerative disc disease of lumbar spine with lumbar radiculopathy symptoms Post-procedure Diagnosis:: Same Indications for Procedure:: Patient is a pleasant 66-year-old white female who we are treating for low back pain with lumbar radiculopathy symptoms. She previously had a lumbar epidural steroid injection back in April which reduce her pain by 50-60%. Her pain is starting to return. She presents for repeat lumbar epidural steroid injection today. Procedure Details:: Lumbar epidural steroid injection under fluoroscopy Informed consent was obtained and the risk and benefits of the procedure was explained to the patient. The patient was taken to the procedure room. The patient was placed prone on the procedure table. The patient was prepped and draped in sterile fashion. C-arm fluoroscopy was used to view the lumbar spine. Skin and subcutaneous tissues were anesthetized using lidocaine. I placed an 18-gauge epidural needle and advanced into the L4-L5 interspace using fluoroscopic guidance and [id number] to air. After confirmation of needle placement in the epidural space with dye I injected 2 mL of lidocaine 1.5% with Depo-Medrol 80 mg. Patient tolerated the procedure well with no complications. Plan and Disposition:: We will follow-up with her in 2 weeks. We will reevaluate her symptoms at that time.
[2017-08-01 14:35] VITALS: BP 166/85; PULSE 65; RESP 18
[2017-08-01 14:36] VITALS: BP 174/83; PULSE 61; RESP 18
--- NOTE | 2017-08-01 14:39 | P.PCN_ITS ---
- Procedure Date: 08/01/17 Time: 14:33 Anesthesiologist:: Dom Gillette MD Complications:: None Pre-procedure Diagnosis:: Degenerative disc disease of lumbar spine with lumbar radiculopathy symptoms Post-procedure Diagnosis:: Same Indications for Procedure:: Patient is a pleasant 66-year-old white female who we are treating for low back pain with lumbar radiculopathy symptoms. She previously had a lumbar epidural steroid injection back in April which reduce her pain by 50-60%. Her pain is starting to return. She presents for repeat lumbar epidural steroid injection today. Procedure Details:: Lumbar epidural steroid injection under fluoroscopy Informed consent was obtained and the risk and benefits of the procedure was explained to the patient. The patient was taken to the procedure room. The patient was placed prone on the procedure table. The patient was prepped and draped in sterile fashion. C-arm fluoroscopy was used to view the lumbar spine. Skin and subcutaneous tissues were anesthetized using lidocaine. I placed an 18-gauge epidural needle and advanced into the L4-L5 interspace using fluoroscopic guidance and [id number] to air. After confirmation of needle placement in the epidural space with dye I injected 2 mL of lidocaine 1.5 % with Depo-Medrol 80 mg. Patient tolerated the procedure well with no complications. Plan and Disposition:: We will follow-up with her in 2 weeks. We will reevaluate her symptoms at that time.
[2017-08-05 10:03] LABS: POC Glucose,Bedside 133 mg/dL (70-110)
== END 2017-08-01 14:25 | disposition home or self-care (01) ==
LOC: SC.PAINP 13:14
PROVIDERS: Family Provider Family Medicine; PCP Family Medicine; Visit Provider Anesthesiology
DX: M51.16 Intervertebral disc disorders with radiculopathy, lumbar region (principal)
CPT/HCPCS: 62323; 82962; J1040; Q9966

== ENCOUNTER → 2017-08-18 09:32 | Outpatient (POV) | payer MEDICARE, MEDICAID, SELFPAY ==
[2017-08-18 10:03] VITALS: BP 147/78; PULSE 61; RESP 18; TEMP 36.4; O2SAT 95; BMI 29.2
--- NOTE | 2017-08-18 10:46 | HMH.PAINSOAP ---
[facility] Pain Management SOAP Note Subjective:: Patient is a pleasant 66-year-old white female who presents today for follow-up after her most recent lumbar epidural steroid injection. Patient states it has decreased her pain 98%. She rates her pain 0 out of 10 today. Patient states that she is doing well right now and is not in need of our services. Patient states that when her pain begins to return she will let us know. Patient also is taking tramadol 50 mg 1 p.o. 3 times daily as needed. Patient's CHANELLE #[id number] reviewed and appropriate. ROS General: no recent weight change, no fever, no sleep disturbances Respiratory: no cough, no shortness of air, no recurring pulmonary infections Cardiovascular/Peripheral Vascular: No chest pain, No palpitations, no edema, no shortness of breath. Gastrointestinal: no incontinence, normal bowel movements reported Genitourinary: no incontinence Musculoskeletal: Back pain Psychiatric: normal mood/ affect, [denies depression], [denies anxiety] Neurological: [denies weakness in extremities], [denies balance issues] Objective:: Physical Exam General: Alert and oriented x3, no acute distress, pleasant and cooperative, [on room air] Lungs: Resps E/U, Symmetrical chest expansion, Eyes: PERRL Musculoskeletal: Flexion and extension of lumbar spine somewhat guarded secondary to pain, deep tendon reflexes normal, strength in upper and lower extremities [5/5], normal gait noted Neurological: speech clear, roll bucker equal, no gross sensory deficits Assessment:: Degenerative disc disease of lumbar spine with lumbar radiculopathy Plan:: We will see this patient back in 3 months. Patient does not need refills today. Patient is going to call us if her pain begins to get worse. This note was dictated using voice recognition software and may contain errors or omissions
--- NOTE | 2017-08-18 10:49 | P.CONS_ITS ---
[facility] Pain Management SOAP Note Subjective:: Patient is a pleasant 66-year-old white female who presents today for follow-up after her most recent lumbar epidural steroid injection. Patient states it has decreased her pain 98%. She rates her pain 0 out of 10 today. Patient states that she is doing well right now and is not in need of our services. Patient states that when her pain begins to return she will let us know. Patient also is taking tramadol 50 mg 1 p.o. 3 times daily as needed. Patient's CHANELLE # [id number] reviewed and appropriate. ROS General: no recent weight change, no fever, no sleep disturbances Respiratory: no cough, no shortness of air, no recurring pulmonary infections Cardiovascular/Peripheral Vascular: No chest pain, No palpitations, no edema, no shortness of breath. Gastrointestinal: no incontinence, normal bowel movements reported Genitourinary: no incontinence Musculoskeletal: Back pain Psychiatric: normal mood/ affect, [denies depression], [denies anxiety] Neurological: [denies weakness in extremities], [denies balance issues] Objective:: Physical Exam General: Alert and oriented x3, no acute distress, pleasant and cooperative, [ on room air] Lungs: Resps E/U, Symmetrical chest expansion, Eyes: PERRL Musculoskeletal: Flexion and extension of lumbar spine somewhat guarded secondary to pain, deep tendon reflexes normal, strength in upper and lower extremities [5/5], normal gait noted Neurological: speech clear, extrusion manager equal, no gross sensory deficits Assessment:: Degenerative disc disease of lumbar spine with lumbar radiculopathy Plan:: We will see this patient back in 3 months. Patient does not need refills today. Patient is going to call us if her pain begins to get worse. This note was dictated using voice recognition software and may contain errors or omissions
== END ==
PROVIDERS: Family Provider Family Medicine; PCP Family Medicine; Visit Provider Clinical Nurse Specialist Family Health
DX: M54.16 Radiculopathy, lumbar region (principal)
CPT/HCPCS: 99212

== ENCOUNTER → 2017-08-22 12:27 | Outpatient (CLI) | payer MEDICARE, MEDICAID, SELFPAY ==
[2017-08-22 12:49] LABS: Basophils % 0.5 % (0.1-2.0); Eosinophils # 0.1 K/mm3 (0.0-0.4); Eosinophils % 1.3 % (0.1-12.0); Hematocrit 42.5 % (37.0-47.0); Hemoglobin 13.9 g/dL (12.2-16.2); Lymphocytes # 1.9 K/mm3 (0.7-4.5); Lymphocytes % 29.7 K/mm3 (10-50); Mean Corpuscular HGB Conc 32.7 g/dL (31.8-35.4); Mean Corpuscular Hemoglobin 29.4 pg (27.0-31.2); Mean Corpuscular Volume 90.1 fl (81-99); Mean Platelet Volume 7.9 fl (7.4-10.4); Monocytes # 0.4 K/mm3 (0.1-1.0); Monocytes % 5.7 % (1.7-9.3); Neutrophils % 62.8 % (37.0-80.0); Platelet Count 258 K/mm3 (142-424); Red Blood Count 4.71 M/mm3 (4.20-5.40); Red Cell Distribution Width 13.6 % (11.5-17.5); White Blood Count 6.4 K/mm3 (4.8-10.8)
--- NOTE | 2017-08-22 12:49 | XR_ITS ---
XR hand LT min 3V COMPARISON: Left hand 07/05/2010 HISTORY: Left hand pain TECHNIQUE: AP lateral and oblique views FINDINGS: There is narrowing of the DIP joints of all of the fingers with mild narrowing of the PIP joints as well. There is prominent narrowing of the first carpometacarpal joint with spurring of the trapezium as well. There is no acute fracture seen. IMPRESSION: Moderate osteophytic changes of the DIP joints of the fingers and base of the thumb as noted. There is been slight interval progression of changes from the previous study in 2010
[2017-08-22 15:15] LABS: Anion Gap 14.4 mEq/L (5-15); Blood Urea Nitrogen 14 mg/dL (7-18); Carbon Dioxide 30 mmol/L (21.0-32.0); Chloride 108 mmol/L (98-107); Creatinine,Serum 1.07 mg/dL (0.55-1.02); Estimated Glomerular Filt Rate 51 ml/min (>60); GFR (African American) 62 ML/MIN (>60); Glucose 104 mg/dL (74-106); Potassium 4.4 mmoL/L (3.5-5.1); Sodium 148 mmol/L (136-145)
--- NOTE | 2017-10-22 12:40 | PC.PHONENOTE ---
called in Rx for tramadol 50mg TID with 2 refills.
== END ==
PROVIDERS: Orthopaedic Surgery; Family Provider Family Medicine; PCP Family Medicine; Visit Provider Internal Medicine
DX: Z01.818 Encounter for other preprocedural examination (principal); M65.332 Trigger finger, left middle finger; M67.442 Ganglion, left hand
CPT/HCPCS: 36415; 73130; 80048; 85025

== ENCOUNTER → 2017-11-17 08:50 | Outpatient (POV) | payer MEDICARE, MEDICAID, SELFPAY ==
[2017-11-17 09:15] VITALS: BP 121/64; PULSE 89; RESP 18; O2SAT 98; BMI 30.6
--- NOTE | 2017-11-17 09:26 | HMH.PAINSOAP ---
[facility] Pain Management SOAP Note Subjective:: Patient is a pleasant 67-year-old white female who today for follow-up. Patient is being treated for pain secondary to degenerative disc disease of lumbar spine with lumbar radiculopathy. Patient has received a lumbar epidural steroid injections in the past which decreases her pain up to 80% for several months. She rates her pain a 7 out of 10 today. Patient would like to be scheduled for another epidural. Patient is also on tramadol 50 mg 1 p.o. 3 times daily. Patient's CHANELLE #[id number] reviewed and appropriate. Patient denies any side effects to the medication. ROS General: no recent weight change, no fever, no sleep disturbances Respiratory: no cough, no shortness of air, no recurring pulmonary infections Cardiovascular/Peripheral Vascular: No chest pain, No palpitations, no edema, no shortness of breath. Gastrointestinal: no incontinence, normal bowel movements reported Genitourinary: no incontinence Musculoskeletal: Back pain Psychiatric: normal mood/ affect Neurological: [denies weakness in extremities], [denies balance issues] Objective:: Physical Exam General: Alert and oriented x3, no acute distress, pleasant and cooperative, [on room air] Lungs: Resps E/U, Symmetrical chest expansion, Eyes: PERRL Musculoskeletal: Flexion and extension of lumbar spine somewhat guarded secondary to pain, deep tendon reflexes normal, strength in upper and lower extremities [5/5], antalgic gait noted, positive straight leg raise test at 30? bilaterally Neurological: speech clear, patient clerical assistant equal, no gross sensory deficits Assessment:: Degenerative disc disease of the lumbar spine with lumbar radiculopathy Plan:: We will schedule a lumbar epidural steroid injection for the patient L4-L5. Patient is not on any anticoagulation therapy. Patient has had good relief in the past from these injections. Patient is tried and failed medications, anti-inflammatories, physical therapy. Patient continues to do home stretching regimen at home. This note was dictated using voice recognition software and may contain errors or omissions
--- NOTE | 2017-11-17 09:29 | P.CONS_ITS ---
[facility] Pain Management SOAP Note Subjective:: Patient is a pleasant 67-year-old white female who today for follow-up. Patient is being treated for pain secondary to degenerative disc disease of lumbar spine with lumbar radiculopathy. Patient has received a lumbar epidural steroid injections in the past which decreases her pain up to 80% for several months. She rates her pain a 7 out of 10 today. Patient would like to be scheduled for another epidural. Patient is also on tramadol 50 mg 1 p.o. 3 times daily. Patient's CHANELLE #[id number] reviewed and appropriate. Patient denies any side effects to the medication. ROS General: no recent weight change, no fever, no sleep disturbances Respiratory: no cough, no shortness of air, no recurring pulmonary infections Cardiovascular/Peripheral Vascular: No chest pain, No palpitations, no edema, no shortness of breath. Gastrointestinal: no incontinence, normal bowel movements reported Genitourinary: no incontinence Musculoskeletal: Back pain Psychiatric: normal mood/ affect Neurological: [denies weakness in extremities], [denies balance issues] Objective:: Physical Exam General: Alert and oriented x3, no acute distress, pleasant and cooperative, [ on room air] Lungs: Resps E/U, Symmetrical chest expansion, Eyes: PERRL Musculoskeletal: Flexion and extension of lumbar spine somewhat guarded secondary to pain, deep tendon reflexes normal, strength in upper and lower extremities [5/5], antalgic gait noted, positive straight leg raise test at 30? bilaterally Neurological: speech clear, custodian manager equal, no gross sensory deficits Assessment:: Degenerative disc disease of the lumbar spine with lumbar radiculopathy Plan:: We will schedule a lumbar epidural steroid injection for the patient L4-L5. Patient is not on any anticoagulation therapy. Patient has had good relief in the past from these injections. Patient is tried and failed medications, anti- inflammatories, physical therapy. Patient continues to do home stretching regimen at home. This note was dictated using voice recognition software and may contain errors or omissions
== END ==
PROVIDERS: Family Provider Family Medicine; PCP Family Medicine; Visit Provider Clinical Nurse Specialist Family Health
DX: M54.16 Radiculopathy, lumbar region (principal)
CPT/HCPCS: 99212

== ENCOUNTER → 2017-11-17 09:34 | Outpatient (CLI) | payer MEDICARE, MEDICAID, SELFPAY ==
[2017-11-17 10:14] LABS: Blood Urea Nitrogen 13 mg/dL (7-18); Creatinine,Serum 1.04 mg/dL (0.55-1.02); Estimated Glomerular Filt Rate 53 ml/min (>60); GFR (African American) 64 ML/MIN (>60)
--- NOTE | 2017-11-17 10:24 | CT_ITS ---
CT soft tissue neck w con CLINICAL INDICATION: ITS.REASON: COUGH,HOARESNESS, ORDERING PHYSICIAN: Gaston Palacios MD PATIENT AGE: 67 years COMPARISON: None TECHNIQUE:Axial, sagittal, and coronal images are generated and reviewed with contrast. All CT scans at the facility use one or more dose reduction, viz: automated exposure control; ma/kV adjustment per patient size (including targeted exams where dose is matched to indication; i.e. head); or iterative reconstruction technique. FINDINGS: No obvious nasopharyngeal mass.. There is mild prominence of the palate the tonsils with subtle decreased density within the left palatine tonsil. This is nonspecific and measures approximately 12 mm. The epiglottis has an unremarkable appearance. There is slight increased soft tissue density to the right of the trachea in the subglottic region aneurysm portable clinical significance The thyroid gland is unremarkable. Scattered small nodes in the neck but no dominant adenopathy. The parotid and submandibular glands are unremarkable. The trachea is slightly deviated toward the left There are mild fibrotic changes in the lung apices with some centrilobular emphysematous change. No acute bony anomalies. There is a mucous retention cyst in the right maxillary sinus measuring 25 mm. IMPRESSION: Mild hypertrophy of the palate the tonsils with subtle low-density changes in the superior aspect of the left palatine tonsil. This is of questionable clinical significance. Direct visualization suggested. This could be related to underlying inflammatory change. Neoplasm cannot be excluded therefore, follow-up is recommended. Slight increased soft tissue density to the right of trachea in the subglottic region nonspecific Suggest follow-up exam in 2-3 months with contrast
--- NOTE | 2017-11-17 10:24 | CT_ITS ---
CT chest w con HISTORY: ITS.REASON: COUGH,HOARSENESS,ABNORMAL FINDINGS ON CXR 05/29 ORDERING PHYSICIAN: Gaston Palacios MD PATIENT AGE: 67 years COMPARISON: 01/28/2017 and 06/02/2017 TECHNIQUE: Axial images obtained following the administration of 75 mL of Isovue 370 . Sagittal, and coronal reformatted images are also generated and reviewed. All CT scans at the facility use one or more dose reduction, viz: automated exposure control; ma/kV adjustment per patient size (including targeted exams where dose is matched to indication; i.e. head); or iterative reconstruction technique. FINDINGS: No mediastinal or hilar mass or adenopathy. There are coronary artery calcifications. Normal heart size without evidence of pericardial effusion. No evidence of aortic aneurysm or dissection. No central pulmonary embolus. There are mild biapical fibrotic changes. No lobar consolidation or collapse. No suspicious pulmonary nodules. Calcified granulomas present within the lingula. No effusions or infiltrates.. No central obstructing lesion. There are mild centrilobular emphysematous changes. There is a 3 mm noncalcified nodule in the superior segment of the left lower lobe unchanged Previous chest x-ray showed a nodular density overlying the thoracic spine. Is likely due to overlying osteophyte at the costovertebral junction. No suspicious nodule is evident. IMPRESSION: 1. No acute finding with overall no significant change from 01/28/2017. 2. Mild centrilobular emphysematous changes. No suspicious pulmonary nodules. The nodular opacity noted on the lateral chest radiograph is secondary to overlying costovertebral hypertrophy
== END ==
PROVIDERS: Family Provider Family Medicine; PCP Family Medicine; Visit Provider Family Medicine
DX: R49.9 Unspecified voice and resonance disorder (principal); R91.8 Other nonspecific abnormal finding of lung field
CPT/HCPCS: 36415; 70491; 71260; 82565; 84520; 99212; Q9967

== ENCOUNTER → 2017-12-16 09:17 | Outpatient (POV) | payer MEDICARE, MEDICAID, SELFPAY | PROVIDERS: Family Provider Family Medicine; PCP Family Medicine; Visit Provider Otolaryngology | DX: Z00.00 Encounter for general adult medical examination without abnormal findings (principal) ==

== ENCOUNTER → 2017-12-22 09:29 | Outpatient (POV) | payer MEDICARE, MEDICAID, SELFPAY ==
[2017-12-22 09:48] VITALS: BP 146/80; PULSE 80; RESP 18; O2SAT 98; BMI 30.6
--- NOTE | 2017-12-22 10:19 | P.CONS_ITS ---
[facility] Pain Management SOAP Note Subjective:: Patient is a pleasant 67-year-old white female who presents today for follow-up after lumbar epidural steroid injection at the L4-L5 level she rates her pain a 1 out of 10 today she states she is doing very well could patient is currently being medically managed on tramadol 50 mg p.o. 3 times daily. Patient's CHANELLE #[id number] reviewed and appropriate. Patient is doing well like to follow-up on an as-needed basis. Patient states she has had 90% relief with this injection. ROS General: no recent weight change, no fever, no sleep disturbances Respiratory: no cough, no shortness of air, no recurring pulmonary infections Cardiovascular/Peripheral Vascular: No chest pain, No palpitations, no edema, no shortness of breath. Gastrointestinal: no incontinence, normal bowel movements reported Genitourinary: no incontinence Musculoskeletal: Back pain Psychiatric: normal mood/ affect Neurological: [denies weakness in extremities], [denies balance issues] Objective:: Physical Exam General: Alert and oriented x3, no acute distress, pleasant and cooperative, [ on room air] Lungs: Resps E/U, Symmetrical chest expansion, Eyes: PERRL Musculoskeletal: Flexion and extension of lumbar spine somewhat guarded secondary to pain, deep tendon reflexes normal, strength in upper and lower extremities [5/5], slightly antalgic gait noted Neurological: speech clear, post form remover equal, no gross sensory deficits Assessment:: Degenerative disc disease of lumbar spine with lumbar radiculopathy symptoms Plan:: We will follow-up with this patient on an as-needed basis patient is not in need of any refills with her medication. Patient is doing well after her injection therapy. Been instructed to call the office if she has any issues. This note was dictated using voice recognition software and may contain errors or omissions
== END ==
PROVIDERS: Family Provider Family Medicine; PCP Family Medicine; Visit Provider Clinical Nurse Specialist Family Health
DX: M51.16 Intervertebral disc disorders with radiculopathy, lumbar region (principal); Z79.891 Long term (current) use of opiate analgesic
CPT/HCPCS: 99212

== ENCOUNTER → 2017-12-30 11:05 | Outpatient (POV) | payer MEDICARE, MEDICAID, SELFPAY | PROVIDERS: Visit Provider Otolaryngology | DX: Z00.00 Encounter for general adult medical examination without abnormal findings (principal) ==

== ENCOUNTER → 2018-02-24 11:26 | Outpatient (POV) | payer MEDICARE, MEDICAID, SELFPAY ==
[2018-02-24 11:41] VITALS: BP 185/85; PULSE 64; RESP 18; O2SAT 98; BMI 30.6
--- NOTE | 2018-02-24 12:06 | HMH.PAINSOAP ---
[facility] Pain Management SOAP Note Subjective:: She is a pleasant 67-year-old white female who presents today for new hip pain. Patient has extreme tenderness over her right bursa along with her right SI joint. Patient states that it has been going on for about a month. She rates her pain 8 out of 10 today. Patient is interested in injective therapy to help with this pain. Patient is continuing a home stretching program. Patient is tried anti-inflammatories over the last 4 weeks with no success. ROS General: no recent weight change, no fever, no sleep disturbances Respiratory: no cough, no shortness of air, no recurring pulmonary infections Cardiovascular/Peripheral Vascular: No chest pain, No palpitations, no edema, no shortness of breath. Gastrointestinal: no incontinence, normal bowel movements reported Genitourinary: no incontinence Musculoskeletal: Right hip pain Psychiatric: normal mood/ affect, Neurological: [denies weakness in extremities], [denies balance issues] Objective:: Physical Exam General: Alert and oriented x3, no acute distress, pleasant and cooperative, [on room air] Lungs: Resps E/U, Symmetrical chest expansion, Eyes: PERRL Musculoskeletal: Flexion and extension of lumbar spine somewhat guarded secondary to pain, deep tendon reflexes normal, strength in upper and lower extremities [5/5], antalgic gait noted, positive Victorina's test on the right side, extreme point tenderness over greater trochanteric bursa Neurological: speech clear, pickup driver equal, no gross sensory deficits Assessment:: Bursitis, sacroiliitis, degenerative disc disease lumbar spine Plan:: Schedule right SI joint injection and a right greater trochanteric bursa injection for the patient. I will follow-up with the patient after her injection. This note was dictated using voice recognition software and may contain errors or omissions
== END ==
PROVIDERS: Family Provider Family Medicine; Visit Provider Clinical Nurse Specialist Family Health
DX: M71.9 Bursopathy, unspecified (principal); M46.1 Sacroiliitis, not elsewhere classified; M51.36 Other intervertebral disc degeneration, lumbar region
CPT/HCPCS: 99213

== ENCOUNTER → 2018-04-20 13:14 | Outpatient (POV) | payer SELFPAY ==
[2018-04-20 13:40] VITALS: BP 191/80; PULSE 71; RESP 18; O2SAT 99; BMI 30.6
--- NOTE | 2018-04-20 14:51 | HMH.PAINSOAP ---
[facility] Pain Management SOAP Note Subjective:: Patient is a pleasant 67-year-old white female who presents today for follow-up after SI joint injection and greater trochanteric bursa injection. Patient states she is doing really well and states her pain is a 1 out of 10. Patient would like to follow-up in 3 months and be reassessed. ROS General: no recent weight change, no fever, no sleep disturbances Respiratory: no cough, no shortness of air, no recurring pulmonary infections Cardiovascular/Peripheral Vascular: No chest pain, No palpitations, no edema, no shortness of breath. Gastrointestinal: no incontinence, normal bowel movements reported Genitourinary: no incontinence Musculoskeletal: Hip pain, back pain Psychiatric: normal mood/ affect Neurological: [denies weakness in extremities], [denies balance issues] Objective:: Physical Exam General: Alert and oriented x3, no acute distress, pleasant and cooperative, on room air Lungs: Resps E/U, Symmetrical chest expansion, Eyes: PERRL Musculoskeletal: Flexion and extension of lumbar spine somewhat guarded secondary to pain, deep tendon reflexes normal, strength in upper and lower extremities [5/5], slightly antalgic gait noted Neurological: speech clear, senior oracle adf 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 Patient's been instructed to call the office if she has any issues prior to her next appointment. This note was dictated using voice recognition software and may contain errors or omissions
--- NOTE | 2018-04-20 14:55 | P.CONS_ITS ---
[facility] Pain Management SOAP Note Subjective:: Patient is a pleasant 67-year-old white female who presents today for follow-up after SI joint injection and greater trochanteric bursa injection. Patient states she is doing really well and states her pain is a 1 out of 10. Patient would like to follow-up in 3 months and be reassessed. ROS General: no recent weight change, no fever, no sleep disturbances Respiratory: no cough, no shortness of air, no recurring pulmonary infections Cardiovascular/Peripheral Vascular: No chest pain, No palpitations, no edema, no shortness of breath. Gastrointestinal: no incontinence, normal bowel movements reported Genitourinary: no incontinence Musculoskeletal: Hip pain, back pain Psychiatric: normal mood/ affect Neurological: [denies weakness in extremities], [denies balance issues] Objective:: Physical Exam General: Alert and oriented x3, no acute distress, pleasant and cooperative, on room air Lungs: Resps E/U, Symmetrical chest expansion, Eyes: PERRL Musculoskeletal: Flexion and extension of lumbar spine somewhat guarded secondary to pain, deep tendon reflexes normal, strength in upper and lower extremities [5/5], slightly antalgic gait noted Neurological: speech clear, manager code equal, no gross sensory deficits Assessment:: Degenerative disc disease lumbar spine with lumbar radiculopathy and sacroiliitis and bursitis Plan:: We will see the patient back in 3 months and reassess her symptoms at that time. Patient's been instructed to call the office if she has any issues prior to her next appointment. This note was dictated using voice recognition software and may contain errors or omissions
== END ==
PROVIDERS: PCP Family Medicine; Visit Provider Clinical Nurse Specialist Family Health
DX: M51.16 Intervertebral disc disorders with radiculopathy, lumbar region (principal); M46.1 Sacroiliitis, not elsewhere classified; M71.9 Bursopathy, unspecified
CPT/HCPCS: 99213

== ENCOUNTER → 2018-05-20 13:36 | Outpatient (CLI) | payer MEDICARE, MEDICAID, SELFPAY ==
--- NOTE | 2018-05-20 13:42 | NVE_ITS ---
Venous Exam Indications: 729.5 Pain in limb. IMPRESSIONS 1. There is no evidence of significant Reflux. 2. No evidence of deep or superficial vein thrombosis involving the right lower extremity History: Right lower extremity pain. Risk factors: Current tobacco use. Hypertension. Renal disease. Medications: Aspirin, 81 mg daily. Right lower extremity venous duplex evaluation. Doppler flow study including spectral analysis, color and daugherty scale imaging. Location: Vascular laboratory. Patient status: Outpatient. Tables: Venous flow and imaging: + +-------+ + Location Overall Flow properties + +-------+ + Right common femoral Patent Normal phasicity; spontaneous; normal augmentation; compressible + +-------+ + Right saphenofemoral junction Patent Compressible + +-------+ + Right profunda femoral Patent Compressible + +-------+ + Right femoral Patent Normal phasicity; spontaneous; normal augmentation; compressible + +-------+ + Right greater saphenous Patent Normal phasicity; spontaneous; normal augmentation; compressible + +-------+ + Right popliteal Patent Normal phasicity; spontaneous; normal augmentation; compressible + +-------+ + Right posterior tibial Patent Compressible + +-------+ + Right peroneal Patent Compressible + +-------+ + Right gastrocnemius Patent Compressible + +-------+ + Right soleal Patent Compressible + +-------+ + (Report amended ) Electronically signed by: Herman Charles [id number]
== END ==
PROVIDERS: PCP Family Medicine; Visit Provider Physician Assistant
DX: M79.661 Pain in right lower leg (principal)
CPT/HCPCS: 93971

== ENCOUNTER → 2018-06-08 14:06 | Outpatient (POV) | payer MEDICARE, MEDICAID, SELFPAY ==
[2018-06-08 14:35] VITALS: BP 137/58; PULSE 72; RESP 18; O2SAT 98; BMI 30.6
--- NOTE | 2018-06-08 14:45 | HMH.PAINSOAP ---
[facility] Pain Management SOAP Note Subjective:: Patient pleasant 67-year-old white female who presents today to discuss her low back pain. Patient is having more low back pain when she is walking it shoots into her legs. Patient states that she has difficulty walking for long periods or standing for long. She finds herself leaning forward. Patient does not have a new MRI. Believe that she may have worsening spinal stenosis. Patient has done epidural injections in the past. She continues a home stretching program and is on anti-inflammatories. ROS General: no recent weight change, no fever, no sleep disturbances Respiratory: no cough, no shortness of air, no recurring pulmonary infections Cardiovascular/Peripheral Vascular: No chest pain, No palpitations, no edema, no shortness of breath. Gastrointestinal: no incontinence, normal bowel movements reported Genitourinary: no incontinence Musculoskeletal: Back pain, leg pain Psychiatric: normal mood/ affect Neurological: [denies weakness in extremities], [denies balance issues] Objective:: Physical Exam General: Alert and oriented x3, no acute distress, pleasant and cooperative, [on room air] Lungs: Resps E/U, Symmetrical chest expansion, Eyes: PERRL Musculoskeletal: Flexion and extension of lumbar spine somewhat guarded secondary to pain, deep tendon reflexes normal, strength in upper and lower extremities [5/5], [abnormal gait noted] Neurological: speech clear, flooring mechanic equal, no gross sensory deficits Assessment:: 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 I will for the patient after that. Dr. Gillette has reviewed this note and agrees with this plan of care. This note was dictated using voice recognition software and may contain errors or omissions
--- NOTE | 2018-06-08 14:48 | P.CONS_ITS ---
[facility] Pain Management SOAP Note Subjective:: Patient pleasant 67-year-old white female who presents today to discuss her low back pain. Patient is having more low back pain when she is walking it shoots into her legs. Patient states that she has difficulty walking for long periods or standing for long. She finds herself leaning forward. Patient does not have a new MRI. Believe that she may have worsening spinal stenosis. Patient has done epidural injections in the past. She continues a home stretching program and is on anti-inflammatories. ROS General: no recent weight change, no fever, no sleep disturbances Respiratory: no cough, no shortness of air, no recurring pulmonary infections Cardiovascular/Peripheral Vascular: No chest pain, No palpitations, no edema, no shortness of breath. Gastrointestinal: no incontinence, normal bowel movements reported Genitourinary: no incontinence Musculoskeletal: Back pain, leg pain Psychiatric: normal mood/ affect Neurological: [denies weakness in extremities], [denies balance issues] Objective:: Physical Exam General: Alert and oriented x3, no acute distress, pleasant and cooperative, [on room air] Lungs: Resps E/U, Symmetrical chest expansion, Eyes: PERRL Musculoskeletal: Flexion and extension of lumbar spine somewhat guarded secondary to pain, deep tendon reflexes normal, strength in upper and lower extremities [5/5], [abnormal gait noted] Neurological: speech clear, shop hand equal, no gross sensory deficits Assessment:: 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 I will for the patient after that. Dr. Gillette has reviewed this note and agrees with this plan of care. This note was dictated using voice recognition software and may contain errors or omissions
== END ==
PROVIDERS: PCP Family Medicine; Visit Provider Clinical Nurse Specialist Family Health
DX: M51.16 Intervertebral disc disorders with radiculopathy, lumbar region (principal); M46.1 Sacroiliitis, not elsewhere classified; M79.606 Pain in leg, unspecified
CPT/HCPCS: 99213

== ENCOUNTER → 2018-06-15 13:19 | Outpatient (CLI) | payer MEDICARE, MEDICAID, SELFPAY ==
--- NOTE | 2018-06-15 13:22 | MR_ITS ---
MR lumbar spine wo con Ordering Physician: Lola Barillas Patient Age: 67 years: Female HISTORY: ITS.REASON: BACK PAIN TECHNIQUE: Sagittal STIR, T1, T2, axial T1 and T2. On 1.5T Siemens wide bore MRI. 3-D MR myelogram image set obtained & performed on MRI workstation. Additional sagittal thin section T2 weighted dataset obtained from this latter acquisition as well (---76 CPT) COMPARISON :MRI L-spine september 2015.... Also February 2009 FINDINGS The vertebral bodies are intact and the disc spaces remain fairly well hydrated. Only some borderline narrowing at L3/4 disc Beginning inferiorly. The sacrum appears intact but there are perineural cysts /[place] cyst seen at the S2 level on right more so than left. Largest of these measuring up to 15 mm transverse 10 mm AP. L5/S1. Diffuse disc bulge. This asymmetric disc bulge is most evident towards the right foramen and continuing lateral to the foramen.. This disc bulge along with bilateral facet hypertrophy yields bilateral recess and foraminal encroachment, most pronounced laterally on right right ( sagittal image 7, axial image 43.). Posterior element hypertrophy indents the posterior aspect of the cecal sac at this level. Overall features yield borderline-to perhaps mild central canal stenosis.. This appears similar to previous study.2016 L4/5. Minor concentric bulge most evident towards right foramen. Moderate Facet and ligament flavum hypertrophy. Only slight narrowing of the spinal canal-mainly due to the posterior element hypertrophy. Mild narrowing and encroachment upon neural foramen bilaterally due to the combination of the above features. Appearance here unchanged since 2016 L3/4.. Diffuse disc bulge, most evident towards right foramen. No significant change since.. Period Moderate right foraminal and recess encroachment. Moderate facet hypertrophy also contributes. Invading the central bulge at this level is less evident on today's studies L2/3 disc intact. Minor facet hypertrophy. L1/2. Mild disc bulge most evident to the right. Slightly indents anterior aspect of thecal sac to the right with mild encroachment upon right foramen.. T 12/L1 disc intact. T11/12 disc intact. Mild anterior marginal osteophytes throughout T-spine 3-D MRI myelogram image set demonstrates: Mild Narrowing the thecal sac L5/S1 mainly due to Posterior indentation from facet hypertrophy. Only subtle anterior indentation this level from disc bulge. Slight decreased filling of the right L5 Nerve root noted corresponding with rightward disc bulge L5/S1 level.. Otherwise only subtle anterior indentation upon the thecal sac at L4/5, L3/4. Slightly more evident anterior indentation thecal sac L1/2 due to the rightward disc bulge at this level Benign appearing left renal cysts midportion left kidney. Largest measuring 2 cm laterally and is slightly larger. The second cyst 1 cm resides just this medial to the larger one... -------- IMPRESSION 1. Multilevel degenerative disc changes as described above. Overall Appearance in findings similar to 2016 with no prominent change.. Most notable findings summarized below & appear similar to previous 2016 MR lumbar study.: L5/S1. Asymmetric disc bulge to the right.. & Posterior element hypertrophy..- Yields borderline central canal stenosis & generous encroachment right foramen more so than left... L4/5. Bilateral posterior element/facet hypertrophy most notable.... Mild disc bulge most evident right foramen L3/4 mild diffuse disc bulge most evident towards right right foramen.. This along with facet hypertrophy yields moderate Right foraminal encroachment. L1/2. A diffuse disc bulge most evident towards right foramen. ...*On final review perhaps scant subtle progressi
== END ==
PROVIDERS: PCP Family Medicine; Visit Provider Clinical Nurse Specialist Family Health
DX: M54.5 Low back pain (principal)
CPT/HCPCS: 72148; 76376

== ENCOUNTER → 2018-06-23 11:06 | Outpatient (POV) | payer MEDICARE, MEDICAID, SELFPAY ==
[2018-06-23 11:49] VITALS: BP 153/68; PULSE 78; RESP 18; O2SAT 99; BMI 30.7
--- NOTE | 2018-06-23 12:14 | HMH.PAINSOAP ---
[facility] Pain Management SOAP Note Subjective:: Patient is a pleasant 67-year-old white female who presents today for follow-up after MRI. Patient does have some degenerative changes along with facet hypertrophy and disc bulge. However she rates her pain a 0 out of 10 today in regards to her back. Patient would like to continue on as of now and potentially do more injections in the future. ROS General: no recent weight change, no fever, no sleep disturbances Respiratory: no cough, no shortness of air, no recurring pulmonary infections Cardiovascular/Peripheral Vascular: No chest pain, No palpitations, no edema, no shortness of breath. Gastrointestinal: no incontinence, normal bowel movements reported Genitourinary: no incontinence Musculoskeletal: Back pain at times Psychiatric: normal mood/ affect Neurological: [denies weakness in extremities], [denies balance issues] Objective:: Physical Exam General: Alert and oriented x3, no acute distress, pleasant and cooperative, [on room air] Lungs: Resps E/U, Symmetrical chest expansion, Eyes: PERRL Musculoskeletal: Flexion and extension of lumbar spine somewhat guarded secondary to pain, deep tendon reflexes normal, strength in upper and lower extremities [5/5], [abnormal gait noted] Neurological: speech clear, apartment leasing specialist equal, no gross sensory deficits Assessment:: Degenerative disc disease lumbar spine with lumbar radiculopathy Plan:: We will follow-up with the patient on an as-needed basis. Patient is in a call our office when she starts having back pain again. Otherwise she is doing well at this time Dr. Gillette has reviewed this note and agrees with this plan of care. This note was dictated using voice recognition software and may contain errors or omissions
== END ==
PROVIDERS: PCP Family Medicine; Visit Provider Clinical Nurse Specialist Family Health
DX: M51.16 Intervertebral disc disorders with radiculopathy, lumbar region (principal)
CPT/HCPCS: 99213

== ENCOUNTER → 2018-08-10 08:58 | Outpatient (POV) | payer MEDICARE, MEDICAID, SELFPAY ==
[2018-08-10 09:10] VITALS: BP 168/75; PULSE 69; RESP 18; O2SAT 98; BMI 30.7
--- NOTE | 2018-08-10 09:20 | HMH.PAINSOAP ---
[facility] Pain Management SOAP Note Subjective:: Patient is a pleasant 67-year-old white female who presents today for follow-up. Patient states that her back pain has increased significantly rating her pain a 10 out of 10 today. Mostly in her low back down her right leg. Patient has had injections in the past with good relief up to 80% for several months. She would like to move forward with another one. ROS General: no recent weight change, no fever, no sleep disturbances Respiratory: no cough, no shortness of air, no recurring pulmonary infections Cardiovascular/Peripheral Vascular: No chest pain, No palpitations, no edema, no shortness of breath. Gastrointestinal: no incontinence, normal bowel movements reported Genitourinary: no incontinence Musculoskeletal: Back pain, leg pain Psychiatric: normal mood/ affect Neurological: [denies weakness in extremities], [denies balance issues] Objective:: Physical Exam General: Alert and oriented x3, no acute distress, pleasant and cooperative, [on room air] Lungs: Resps E/U, Symmetrical chest expansion, Eyes: PERRL Musculoskeletal: Flexion and extension of lumbar spine somewhat guarded secondary to pain, deep tendon reflexes normal, strength in upper and lower extremities [5/5], [abnormal gait noted] Neurological: speech clear, heat treat supervisor equal, no gross sensory deficits Assessment:: Degenerative disc disease lumbar spine with lumbar radiculopathy Plan:: We will schedule the patient for an L4-L5 lumbar epidural steroid injection. Patient is not on any anticoagulation therapy. I will follow-up with the patient after her injection and reassess her symptoms at that time. Dr. Gillette has reviewed this note and agrees with this plan of care. This note was dictated using voice recognition software and may contain errors or omissions
--- NOTE | 2018-08-10 09:23 | P.CONS_ITS ---
[facility] Pain Management SOAP Note Subjective:: Patient is a pleasant 67-year-old white female who presents today for follow-up. Patient states that her back pain has increased significantly rating her pain a 10 out of 10 today. Mostly in her low back down her right leg. Patient has had injections in the past with good relief up to 80% for several months. She would like to move forward with another one. ROS General: no recent weight change, no fever, no sleep disturbances Respiratory: no cough, no shortness of air, no recurring pulmonary infections Cardiovascular/Peripheral Vascular: No chest pain, No palpitations, no edema, no shortness of breath. Gastrointestinal: no incontinence, normal bowel movements reported Genitourinary: no incontinence Musculoskeletal: Back pain, leg pain Psychiatric: normal mood/ affect Neurological: [denies weakness in extremities], [denies balance issues] Objective:: Physical Exam General: Alert and oriented x3, no acute distress, pleasant and cooperative, [on room air] Lungs: Resps E/U, Symmetrical chest expansion, Eyes: PERRL Musculoskeletal: Flexion and extension of lumbar spine somewhat guarded secondary to pain, deep tendon reflexes normal, strength in upper and lower extremities [5/5], [abnormal gait noted] Neurological: speech clear, recreational therapy technician equal, no gross sensory deficits Assessment:: Degenerative disc disease lumbar spine with lumbar radiculopathy Plan:: We will schedule the patient for an L4-L5 lumbar epidural steroid injection. Patient is not on any anticoagulation therapy. I will follow-up with the patient after her injection and reassess her symptoms at that time. Dr. Gillette has reviewed this note and agrees with this plan of care. This note was dictated using voice recognition software and may contain errors or omissions
== END ==
PROVIDERS: PCP Family Medicine; Visit Provider Clinical Nurse Specialist Family Health
DX: M51.16 Intervertebral disc disorders with radiculopathy, lumbar region (principal)
CPT/HCPCS: 99212

== ENCOUNTER → 2018-09-21 14:51 | Outpatient (POV) | payer MEDICARE, MEDICAID, SELFPAY ==
--- NOTE | 2018-09-21 15:04 | HMH.PAINSOAP ---
[facility] Pain Management SOAP Note Subjective:: Patient is a pleasant 67-year-old white female who presents today for follow-up after lumbar epidural steroid injection. Patient is doing well rating her pain in her back a 4 out of 10. The only pain she is having today is bilateral bursitis pain in her hips. She would like an injection in this. Patient is also on tramadol 50 mg 1 p.o. twice daily. She states that this is beneficial. She denies side effects. ROS General: no recent weight change, no fever, no sleep disturbances Respiratory: no cough, no shortness of air, no recurring pulmonary infections Cardiovascular/Peripheral Vascular: No chest pain, No palpitations, no edema, no shortness of breath. Gastrointestinal: no incontinence, normal bowel movements reported Genitourinary: no incontinence Musculoskeletal: Back pain, leg pain, bilateral hip pain Psychiatric: normal mood/ affect Neurological: [denies weakness in extremities], [denies balance issues] Objective:: Physical Exam General: Alert and oriented x3, no acute distress, pleasant and cooperative, [on room air] Lungs: Resps E/U, Symmetrical chest expansion, Eyes: PERRL Musculoskeletal: Flexion and extension of lumbar spine somewhat guarded secondary to pain, deep tendon reflexes normal, strength in upper and lower extremities [5/5], [abnormal gait noted] extreme point tenderness over bilateral greater trochanteric bursa Neurological: speech clear, lead java software engineer equal, no gross sensory deficits Assessment:: Bursitis, degenerative disc disease lumbar spine with lumbar radiculopathy Plan:: We will schedule the patient for bilateral greater trochanteric bursa injections. We will also call in her tramadol 50 mg 1 p.o. to twice daily. I will follow-up with the patient after injection reassess her symptoms at that time she is been instructed to call the office if she has any issues prior to her next appointment. Dr. Gillette has reviewed this note and agrees with this plan of care. This note was dictated using voice recognition software and may contain errors or omissions
[2018-09-21 15:05] VITALS: BP 154/71; PULSE 74; RESP 18; O2SAT 99; BMI 31.1
--- NOTE | 2018-09-21 15:07 | P.CONS_ITS ---
[facility] Pain Management SOAP Note Subjective:: Patient is a pleasant 67-year-old white female who presents today for follow-up after lumbar epidural steroid injection. Patient is doing well rating her pain in her back a 4 out of 10. The only pain she is having today is bilateral bursitis pain in her hips. She would like an injection in this. Patient is also on tramadol 50 mg 1 p.o. twice daily. She states that this is beneficial. She denies side effects. ROS General: no recent weight change, no fever, no sleep disturbances Respiratory: no cough, no shortness of air, no recurring pulmonary infections Cardiovascular/Peripheral Vascular: No chest pain, No palpitations, no edema, no shortness of breath. Gastrointestinal: no incontinence, normal bowel movements reported Genitourinary: no incontinence Musculoskeletal: Back pain, leg pain, bilateral hip pain Psychiatric: normal mood/ affect Neurological: [denies weakness in extremities], [denies balance issues] Objective:: Physical Exam General: Alert and oriented x3, no acute distress, pleasant and cooperative, [on room air] Lungs: Resps E/U, Symmetrical chest expansion, Eyes: PERRL Musculoskeletal: Flexion and extension of lumbar spine somewhat guarded secondary to pain, deep tendon reflexes normal, strength in upper and lower extremities [5/5], [abnormal gait noted] extreme point tenderness over bilateral greater trochanteric bursa Neurological: speech clear, retail parts pro equal, no gross sensory deficits Assessment:: Bursitis, degenerative disc disease lumbar spine with lumbar radiculopathy Plan:: We will schedule the patient for bilateral greater trochanteric bursa injectio ns. We will also call in her tramadol 50 mg 1 p.o. to twice daily. I will follow-up with the patient after injection reassess her symptoms at that time she is been instructed to call the office if she has any issues prior to her next appointment. Dr. Gillette has reviewed this note and agrees with this plan of care. This note was dictated using voice recognition software and may contain errors or omissions
== END ==
PROVIDERS: PCP Family Medicine; Visit Provider Clinical Nurse Specialist Family Health
DX: M51.16 Intervertebral disc disorders with radiculopathy, lumbar region (principal)
CPT/HCPCS: 99212

== ENCOUNTER → 2018-10-19 13:27 | Outpatient (POV) | payer MEDICARE, MEDICAID, SELFPAY ==
[2018-10-19 13:36] VITALS: BP 133/62; PULSE 63; RESP 18; O2SAT 98; BMI 30.6
--- NOTE | 2018-10-19 14:16 | HMH.PAINSOAP ---
[facility] Pain Management SOAP Note Subjective:: Patient is a pleasant 67-year-old white female who presents for follow-up bilateral trochanteric bursa injections. She reports 100% relief after her injection. She also saved lumbar epidural steroid injections in the past and reports 80 to 90% relief with those as well. She rates her pain a 0 out of 10 today. ROS General: no recent weight change, no fever, no sleep disturbances Respiratory: no cough, no shortness of air, no recurring pulmonary infections Cardiovascular/Peripheral Vascular: No chest pain, No palpitations, no edema, no shortness of breath. Gastrointestinal: no incontinence, normal bowel movements reported Genitourinary: no incontinence Musculoskeletal: Back pain, leg pain, lateral hip pain Psychiatric: normal mood/ affect, [denies depression], [denies anxiety] Neurological: [denies weakness in extremities], [denies balance issues] Objective:: Physical Exam General: Alert and oriented x3, no acute distress, pleasant and cooperative, [on room air] Lungs: Resps E/U, Symmetrical chest expansion, Eyes: PERRL Musculoskeletal: deep tendon reflexes normal, strength in upper and lower extremities [5/5], [abnormal gait noted] Neurological: speech clear, parts cataloger equal, no gross sensory deficits Assessment:: Bursitis, degenerative disc disease lumbar spine with lumbar radiculopathy Plan:: Patient is doing well today she rates her pain a 0 out of 10. We will follow-up with her as needed. She is been instructed to call the office if she has any concerns. Patient is also on tramadol from us. She denies side effects. She does not need refills at this time. Daniel #[id number] has been reviewed and is appropriate. Dr. Gillette has reviewed this note and agrees with this plan of care. This note was dictated using voice recognition software and may contain errors or omissions
--- NOTE | 2018-10-19 14:19 | P.CONS_ITS ---
[facility] Pain Management SOAP Note Subjective:: Patient is a pleasant 67-year-old white female who presents for follow-up bilateral trochanteric bursa injections. She reports 100% relief after her injection. She also saved lumbar epidural steroid injections in the past and reports 80 to 90% relief with those as well. She rates her pain a 0 out of 10 today. ROS General: no recent weight change, no fever, no sleep disturbances Respiratory: no cough, no shortness of air, no recurring pulmonary infections Cardiovascular/Peripheral Vascular: No chest pain, No palpitations, no edema, no shortness of breath. Gastrointestinal: no incontinence, normal bowel movements reported Genitourinary: no incontinence Musculoskeletal: Back pain, leg pain, lateral hip pain Psychiatric: normal mood/ affect, [denies depression], [denies anxiety] Neurological: [denies weakness in extremities], [denies balance issues] Objective:: Physical Exam General: Alert and oriented x3, no acute distress, pleasant and cooperative, [on room air] Lungs: Resps E/U, Symmetrical chest expansion, Eyes: PERRL Musculoskeletal: deep tendon reflexes normal, strength in upper and lower extremities [5/5], [abnormal gait noted] Neurological: speech clear, senior validation engineer equal, no gross sensory deficits Assessment:: Bursitis, degenerative disc disease lumbar spine with lumbar radiculopathy Plan:: Patient is doing well today she rates her pain a 0 out of 10. We will follow-up with her as needed. She is been instructed to call the office if she has any concerns. Patient is also on tramadol from us. She denies side effects. She does not need refills at this time. Daniel #[id number] has been reviewed and is appropriate. Dr. Gillette has reviewed this note and agrees with this plan of care. This note was dictated using voice recognition software and may contain errors or omissions
== END ==
PROVIDERS: PCP Family Medicine; Visit Provider Clinical Nurse Specialist Family Health
DX: M51.16 Intervertebral disc disorders with radiculopathy, lumbar region (principal)
CPT/HCPCS: 99212

== ENCOUNTER → 2018-11-30 11:10 | Outpatient (POV) | payer MEDICARE, MEDICAID, SELFPAY ==
[2018-11-30 11:41] VITALS: BP 140/71; PULSE 75; RESP 18; O2SAT 98; BMI 30.6
--- NOTE | 2018-11-30 12:50 | HMH.PAINSOAP ---
[facility] Pain Management SOAP Note Subjective:: Patient is a pleasant 67-year-old white female who presents today for follow-up. Patient is being treated for trochanteric bursitis. Today she rates her pain a 10 out of 10 to her right hip. She says that she had bilateral trochanteric bursa injections in the past and got 100% relief with these injections today. However, the pain is returned to the right side. She would like to schedule another bursa injection to the right side today. She is continuing with anti-inflammatories, and home stretching program. Review of Systems General: No recent weight changes, no fever, no sleep disturbances Respiratory: No cough, no shortness of air, no recurring pulmonary infections Cardiovascular/peripheral vascular: No chest pain, no palpitations, no edema, no shortness of breath Gastrointestinal: No new onset incontinence, normal bowel movements reported Genitourinary: No new onset incontinence Musculoskeletal: Right hip pain Psychiatric: Normal mood/affect Neurological: [Denies weakness in extremities], [denies balance issues] Objective:: Physical exam General: Alert and oriented x3, no acute distress, pleasant and cooperative, [on room air] Lungs: Respirations even and unlabored, symmetrical chest expansion Eyes: PERRL Musculoskeletal: Range of motion to right lower extremity somewhat guarded secondary to pain, deep tendon reflexes normal, strength in upper and lower extremities [5/5], [abnormal gait noted] Neurological: Speech clear, sewer digger equal, no gross sensory deficit Assessment:: Right greater trochanteric bursitis Plan:: Given the efficacy of her injections in the past, feel she would benefit from another right greater trochanteric bursa injection. We will schedule the patient for the procedure and see her back in the office afterwards. She is been instructed to call the office if she has any concerns prior to that next appointment. She will continue with anti-inflammatories and home stretching program. Dr. Gillette has reviewed this note and agrees with this plan of care. This note was dictated using voice recognition software and make contain errors or omissions.
--- NOTE | 2018-11-30 12:53 | P.CONS_ITS ---
[facility] Pain Management SOAP Note Subjective:: Patient is a pleasant 67-year-old white female who presents today for follow-up. Patient is being treated for trochanteric bursitis. Today she rates her pain a 10 out of 10 to her right hip. She says that she had bilateral trochanteric bursa injections in the past and got 100% relief with these injections today. However, the pain is returned to the right side. She would like to schedule another bursa injection to the right side today. She is continuing with anti- inflammatories, and home stretching program. Review of Systems General: No recent weight changes, no fever, no sleep disturbances Respiratory: No cough, no shortness of air, no recurring pulmonary infections Cardiovascular/peripheral vascular: No chest pain, no palpitations, no edema, no shortness of breath Gastrointestinal: No new onset incontinence, normal bowel movements reported Genitourinary: No new onset incontinence Musculoskeletal: Right hip pain Psychiatric: Normal mood/affect Neurological: [Denies weakness in extremities], [denies balance issues] Objective:: Physical exam General: Alert and oriented x3, no acute distress, pleasant and cooperative, [on room air] Lungs: Respirations even and unlabored, symmetrical chest expansion Eyes: PERRL Musculoskeletal: Range of motion to right lower extremity somewhat guarded secondary to pain, deep tendon reflexes normal, strength in upper and lower extremities [5/5], [abnormal gait noted] Neurological: Speech clear, end frazer equal, no gross sensory deficit Assessment:: Right greater trochanteric bursitis Plan:: Given the efficacy of her injections in the past, feel she would benefit from another right greater trochanteric bursa injection. We will schedule the patient for the procedure and see her back in the office afterwards. She is been instructed to call the office if she has any concerns prior to that next appointment. She will continue with anti-inflammatories and home stretching program. Dr. Gillette has reviewed this note and agrees with this plan of care. This note was dictated using voice recognition software and make contain errors or omissions.
== END ==
PROVIDERS: PCP Family Medicine; Visit Provider Clinical Nurse Specialist Family Health
DX: M70.61 Trochanteric bursitis, right hip (principal)
CPT/HCPCS: 99212

== ENCOUNTER → 2019-02-15 09:15 | Outpatient (POV) | payer MEDICARE, OTHER, SELFPAY ==
[2019-02-15 09:36] VITALS: BP 168/68; PULSE 72; RESP 18; O2SAT 94; BMI 31.9
--- NOTE | 2019-02-15 10:22 | HMH.PAINSOAP ---
[facility] Pain Management SOAP Note Subjective:: Patient is a pleasant 68-year-old white female who presents today for follow-up. Patient rates her pain a 10 out of 10. Patient wants to discuss the mild procedure. 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 I do believe she may be a good candidate she has difficulty standing and walking for any greater amount of time than 5 minutes. She does find herself leaning forward. Patient and I talked about doing an epidural steroid injection along with an epidurogram to help determine if this is a appropriate procedure for her. She is not on any anticoagulation therapy she is continuing a home stretching program. ROS General: no recent weight change, no fever, no sleep disturbances Respiratory: no cough, no shortness of air, no recurring pulmonary infections Cardiovascular/Peripheral Vascular: No chest pain, No palpitations, no edema, no shortness of breath. Gastrointestinal: no incontinence, normal bowel movements reported Genitourinary: no incontinence Musculoskeletal: Back pain, leg pain Psychiatric: normal mood/ affect Neurological: [denies weakness in extremities], [denies balance issues] Objective:: Physical Exam General: Alert and oriented x3, no acute distress, pleasant and cooperative, [on room air] Lungs: Resps E/U, Symmetrical chest expansion, Eyes: PERRL Musculoskeletal: Flexion and extension of lumbar spine somewhat guarded secondary to pain, deep tendon reflexes normal, strength in upper and lower extremities [5/5], [abnormal gait noted] Neurological: speech clear, 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 Patient will be set up for an epidural L4-L5 lumbar epidural steroid injection along with an epidurogram to see if she is a candidate for the mild procedure. Patient's been instructed to call the office if she has any issues prior to her next appointment. Dr. Gillette has reviewed this note and agrees with this plan of care. This note was dictated using voice recognition software and may contain errors or omissions [facility] History I have reviewed the patient's past medical history: Yes Medical History: Reports:: Anxiety, Chronic Obstructive Pulmonary Disease (COPD), Depression, Gastroesophageal Reflux Disease(GERD), Hyperlipidemia, Hypertension, Osteoporosis Denies:: Cancer, Diabetes Mellitus Type 1, Diabetes Mellitus Type 2, Internal Pacemaker, MRSA, Seizures *Have you ever received a pneumonia vaccine?: Yes *Have you received a flu vaccine this season?: Yes Other Medical History: Reports: Anemia, Arthritis, Cataracts, Osteoporosis. Denies: Blood Transfusion Reaction Laterality Cases: Bilateral: Arthroscopy Shoulder Other Surgeries: Yes: Appendectomy, Cardiac Catheterization, Cholecystectomy, Hysterectomy-Total, Tubal Ligation, Other. No: Pacemaker Amputation: No Fractures: No - *Social History Smoking Status: Current every day smoker Tobacco Type: cigarettes # Packs/Day (cigarettes): 1 #Yrs smoked (if former smoker): 4 Alcohol Intake: never Alcohol Intake Frequency:: other *Occupational Status:: other Housing: apartment Household Members: other *Travel in the last 8 weeks: None - Psychiatric History Pschychiatric History:: Reports:: Anxiety, Depression Family Hx:: Coronary Artery Disease, Diabetes, Heart Attack, Hypertension
--- NOTE | 2019-02-15 10:26 | P.CONS_ITS ---
[facility] Pain Management SOAP Note Subjective:: Patient is a pleasant 68-year-old white female who presents today for follow-up. Patient rates her pain a 10 out of 10. Patient wants to discuss the mild procedure. 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 I do believe she may be a good candidate she has difficulty standing and walking for any greater amount of time than 5 minutes. She does find herself leaning forward. Patient and I talked about doing an epidural steroid injection along with an epidurogram to help determine if this is a appropriate procedure for her. She is not on any anticoagulation therapy she is continuing a home stretching program. ROS General: no recent weight change, no fever, no sleep disturbances Respiratory: no cough, no shortness of air, no recurring pulmonary infections Cardiovascular/Peripheral Vascular: No chest pain, No palpitations, no edema, no shortness of breath. Gastrointestinal: no incontinence, normal bowel movements reported Genitourinary: no incontinence Musculoskeletal: Back pain, leg pain Psychiatric: normal mood/ affect Neurological: [denies weakness in extremities], [denies balance issues] Objective:: Physical Exam General: Alert and oriented x3, no acute distress, pleasant and cooperative, [on room air] Lungs: Resps E/U, Symmetrical chest expansion, Eyes: PERRL Musculoskeletal: Flexion and extension of lumbar spine somewhat guarded secondary to pain, deep tendon reflexes normal, strength in upper and lower extremities [5/5], [abnormal gait noted] Neurological: speech clear, 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 Patient will be set up for an epidural L4-L5 lumbar epidural steroid injection along with an epidurogram to see if she is a candidate for the mild procedure. Patient's been instructed to call the office if she has any issues prior to her next appointment. Dr. Gillette has reviewed this note and agrees with this plan of care. This note was dictated using voice recognition software and may contain errors or omissions [facility] History I have reviewed the patient's past medical history: Yes Medical History: Reports:: Anxiety, Chronic Obstructive Pulmonary Disease (C OPD), Depression, Gastroesophageal Reflux Disease(GERD), Hyperlipidemia, Hypertension, Osteoporosis Denies:: Cancer, Diabetes Mellitus Type 1, Diabetes Mellitus Type 2, Internal Pacemaker, MRSA, Seizures *Have you ever received a pneumonia vaccine?: Yes *Have you received a flu vaccine this season?: Yes Other Medical History: Reports: Anemia, Arthritis, Cataracts, Osteoporosis. Denies: Blood Transfusion Reaction Laterality Cases: Bilateral: Arthroscopy Shoulder Other Surgeries: Yes: Appendectomy, Cardiac Catheterization, Cholecystectomy, Hysterectomy-Total, Tubal Ligation, Other. No: Pacemaker Amputation: No Fractures: No - *Social History Smoking Status: Current every day smoker Tobacco Type: cigarettes # Packs/Day (cigarettes): 1 #Yrs smoked (if former smoker): 4 Alcohol Intake: never Alcohol Intake Frequency:: other *Occupational Status:: other Housing: apartment Household Members: other *Travel in the last 8 weeks: None - Psychiatric History Pschychiatric History:: Reports:: Anxiety, Depression Family Hx:: Coronary Artery Disease, Diabetes, Heart Attack, Hypertension
== END ==
PROVIDERS: PCP Family Medicine; Visit Provider Clinical Nurse Specialist Family Health
DX: M48.062 Spinal stenosis, lumbar region with neurogenic claudication (principal); M51.16 Intervertebral disc disorders with radiculopathy, lumbar region
CPT/HCPCS: 99212

== ENCOUNTER → 2019-03-03 14:35 | Outpatient (POV) | payer MEDICARE, SELFPAY | DX: Z00.00 Encounter for general adult medical examination without abnormal findings (principal) ==

== ENCOUNTER → 2019-04-19 13:55 | Outpatient (POV) | payer MEDICARE, OTHER, SELFPAY ==
[2019-04-19 14:20] VITALS: BP 130/56; PULSE 73; RESP 18; O2SAT 98; BMI 32.3
--- NOTE | 2019-04-20 08:45 | HMH.PAINSOAP ---
[facility] Pain Management SOAP Note Subjective:: Patient is a pleasant 68-year-old white female who presents today for follow-up after a lumbar epidural steroid injection and epidurogram. Patient is a mild candidate at the L3-L4 L4-L5 levels. I do believe that it would benefit her. We will move forward with this. Patient has difficulty with standing long periods of time or walking. Patient has weakness in her legs. She does have ligamentum flavum hypertrophy. She is tried and failed injective therapies, physical therapy, anti-inflammatories and medications. Patient is continuing her home stretching therapy. She is not on any anticoagulation therapy. ROS General: no recent weight change, no fever, no sleep disturbances Respiratory: no cough, no shortness of air, no recurring pulmonary infections Cardiovascular/Peripheral Vascular: No chest pain, No palpitations, no edema, no shortness of breath. Gastrointestinal: no new onset incontinence, normal bowel movements reported Genitourinary: no new onset incontinence Musculoskeletal: Back pain leg pain Psychiatric: normal mood/ affect, Neurological: Weakness in bilateral lower extremities while walking, [denies new onset balance issues] Objective:: Physical Exam General: Alert and oriented x3, no acute distress, pleasant and cooperative, [on room air] Lungs: Resps E/U, Symmetrical chest expansion, Eyes: PERRL Musculoskeletal: Flexion and extension of lumbar spine somewhat guarded secondary to pain, deep tendon reflexes normal, strength in upper and lower extremities [5/5], [abnormal gait noted] Neurological: speech clear, 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 stand 3 minutes without less than 5 minutes and can walk less than pain and weakness in her legs. I will set her up for a mild procedure at L3-L4 L4-L5. Patient has been instructed to call the office if she has any issues prior to her next appointment. Patient will be followed up with after this procedure and reassess. Dr. Gillette has reviewed this note and agrees with this plan of care. This note was dictated using voice recognition software and may contain errors or omissions [facility] History I have reviewed the patient's past medical history: Yes Medical History: Reports:: Anxiety, Chronic Obstructive Pulmonary Disease (COPD), Depression, Gastroesophageal Reflux Disease(GERD), Hyperlipidemia, Hypertension, Osteoporosis Denies:: Cancer, Diabetes Mellitus Type 1, Diabetes Mellitus Type 2, Internal Pacemaker, MRSA, Seizures *Have you ever received a pneumonia vaccine?: Yes *Have you received a flu vaccine this season?: Yes Other Medical History: Reports: Anemia, Arthritis, Cataracts, Osteoporosis. Denies: Blood Transfusion Reaction Laterality Cases: Bilateral: Arthroscopy Shoulder Other Surgeries: Yes: Appendectomy, Cardiac Catheterization, Cholecystectomy, Colonoscopy, EGD, Hysterectomy-Total, Tubal Ligation, Other. No: Pacemaker Amputation: No Fractures: No - *Social History Smoking Status: Current every day smoker Tobacco Type: cigarettes # Packs/Day (cigarettes): 1 #Yrs smoked (if former smoker): 4 Alcohol Intake: never Alcohol Intake Frequency:: other Substance Use Type: denies use *Occupational Status:: other Housing: apartment Household Members: other *Travel in the last 8 weeks: None - Psychiatric History Pschychiatric History:: Reports:: Anxiety, Depression Family Hx:: Coronary Artery Disease, Diabetes, Heart Attack, Hypertension
--- NOTE | 2019-04-20 08:48 | P.CONS_ITS ---
[facility] Pain Management SOAP Note Subjective:: Patient is a pleasant 68-year-old white female who presents today for follow-up after a lumbar epidural steroid injection and epidurogram. Patient is a mild candidate at the L3-L4 L4-L5 levels. I do believe that it would benefit her. We will move forward with this. Patient has difficulty with standing long periods of time or walking. Patient has weakness in her legs. She does have ligamentum flavum hypertrophy. She is tried and failed injective therapies, physical therapy, anti-inflammatories and medications. Patient is continuing her home stretching therapy. She is not on any anticoagulation therapy. ROS General: no recent weight change, no fever, no sleep disturbances Respiratory: no cough, no shortness of air, no recurring pulmonary infections Cardiovascular/Peripheral Vascular: No chest pain, No palpitations, no edema, no shortness of breath. Gastrointestinal: no new onset incontinence, normal bowel movements reported Genitourinary: no new onset incontinence Musculoskeletal: Back pain leg pain Psychiatric: normal mood/ affect, Neurological: Weakness in bilateral lower extremities while walking, [denies new onset balance issues] Objective:: Physical Exam General: Alert and oriented x3, no acute distress, pleasant and cooperative, [on room air] Lungs: Resps E/U, Symmetrical chest expansion, Eyes: PERRL Musculoskeletal: Flexion and extension of lumbar spine somewhat guarded secondary to pain, deep tendon reflexes normal, strength in upper and lower extremities [5/5], [abnormal gait noted] Neurological: speech clear, 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 stand 3 minutes without less than 5 minutes and can walk less than pain and weakness in her legs. I will set her up for a mild procedure at L3-L4 L4-L5. Patient has been instructed to call the office if she has any issues prior to her next appointment. Patient will be followed up with after this procedure and reassess. Dr. Gillette has reviewed this note and agrees with this plan of care. This note was dictated using voice recognition software and may contain errors or omissions [facility] History I have reviewed the patient's past medical history: Yes Medical History: Reports:: Anxiety, Chronic Obstructive Pulmonary Disease (COPD), Depression, Gastroesophageal Reflux Disease(GERD), Hyperlipidemia, Hypertension, Osteoporosis Denies:: Cancer, Diabetes Mellitus Type 1, Diabetes Mellitus Type 2, Internal Pacemaker, MRSA, Seizures *Have you ever received a pneumonia vaccine?: Yes *Have you received a flu vaccine this season?: Yes Other Medical History: Reports: Anemia, Arthritis, Cataracts, Osteoporosis. Denies: Blood Transfusion Reaction Laterality Cases: Bilateral: Arthroscopy Shoulder Other Surgeries: Yes: Appendectomy, Cardiac Catheterization, Cholecystectomy, Colonoscopy, EGD, Hysterectomy-Total, Tubal Ligation, Other. No: Pacemaker Amputation: No Fractures: No - *Social History Smoking Status: Current every day smoker Tobacco Type: cigarettes # Packs/Day (cigarettes): 1 #Yrs smoked (if former smoker): 4 Alcohol Intake: never Alcohol Intake Frequency:: other Substance Use Type: denies use *Occupational Status:: other Housing: apartment Household Members: other *Travel in the last 8 weeks: None - Psychiatric History Pschychiatric History::
== END ==
PROVIDERS: PCP Family Medicine; Visit Provider Clinical Nurse Specialist Family Health
DX: M48.062 Spinal stenosis, lumbar region with neurogenic claudication (principal)
CPT/HCPCS: 99212

== ENCOUNTER → 2019-04-21 13:42 | Outpatient (POV) | payer MEDICARE, OTHER, SELFPAY | DX: Z00.00 Encounter for general adult medical examination without abnormal findings (principal) ==

== ENCOUNTER → 2019-05-31 12:48 | Outpatient (POV) | payer MEDICARE, OTHER, SELFPAY ==
[2019-05-31 12:59] VITALS: BP 123/68; PULSE 79; RESP 18; O2SAT 99; BMI 32.3
--- NOTE | 2019-05-31 13:13 | HMH.PAINSOAP ---
[facility] Pain Management SOAP Note Subjective:: Patient is a pleasant 68-year-old white female who presents today for follow-up after her a mild procedure. Patient has 0 pain. Patient has not had pain since the procedure. Patient states she is able to stand for longer periods of time and is able to walk for longer periods of time overall the patient is extremely satisfied. ROS General: no recent weight change, no fever, no sleep disturbances Respiratory: no cough, no shortness of air, no recurring pulmonary infections Cardiovascular/Peripheral Vascular: No chest pain, No palpitations, no edema, no shortness of breath. Gastrointestinal: no new onset incontinence, normal bowel movements reported Genitourinary: no new onset incontinence Musculoskeletal: No low back pain Psychiatric: normal mood/ affect Neurological: [denies new onset weakness in extremities], [denies new onset balance issues] Objective:: Physical Exam General: Alert and oriented x3, no acute distress, pleasant and cooperative, [on room air] Lungs: Resps E/U, Symmetrical chest expansion, Eyes: PERRL Musculoskeletal: Flexion and extension of lumbar spine somewhat guarded secondary to pain, deep tendon reflexes normal, strength in upper and lower extremities [5/5], slightly antalgic gait Neurological: speech clear, salvage 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 Patient will be followed up within 1 month and may reassess. Patient has been instructed to call the office if she has any problems. Dr. Gillette has reviewed this note and agrees with this plan of care. This note was dictated using voice recognition software and may contain errors or omissions [facility] History I have reviewed the patient's past medical history: Yes Medical History: Reports:: Anxiety, Chronic Obstructive Pulmonary Disease (COPD), Depression, Diabetes Mellitus Type 2, Gastroesophageal Reflux Disease(GERD), Hyperlipidemia, Hypertension, Osteoporosis Denies:: Cancer, Diabetes Mellitus Type 1, Internal Pacemaker, MRSA, Seizures *Have you ever received a pneumonia vaccine?: Yes *Have you received a flu vaccine this season?: Yes Other Medical History: Reports: Anemia, Arthritis, Cataracts, Osteoporosis. Denies: Blood Transfusion Reaction Laterality Cases: Bilateral: Arthroscopy Shoulder Other Surgeries: Yes: Appendectomy, Cardiac Catheterization, Cholecystectomy, Colonoscopy, EGD, Hysterectomy-Total, Tubal Ligation, Other. No: Pacemaker Amputation: No Fractures: No - *Social History Smoking Status: Current every day smoker Tobacco Type: cigarettes # Packs/Day (cigarettes): 1 #Yrs smoked (if former smoker): 4 Alcohol Intake: never Alcohol Intake Frequency:: other Substance Use Type: denies use *Occupational Status:: other Housing: apartment Household Members: other *Travel in the last 8 weeks: None - Psychiatric History Pschychiatric History:: Reports:: Anxiety, Depression Family Hx:: Coronary Artery Disease, Diabetes, Heart Attack, Hypertension
== END ==
PROVIDERS: PCP Family Medicine; Visit Provider Clinical Nurse Specialist Family Health
DX: M48.062 Spinal stenosis, lumbar region with neurogenic claudication (principal); F41.9 Anxiety disorder, unspecified; J44.9 Chronic obstructive pulmonary disease, unspecified; F32.9 Major depressive disorder, single episode, unspecified; E11.9 Type 2 diabetes mellitus without complications; K21.9 Gastro-esophageal reflux disease without esophagitis; E78.5 Hyperlipidemia, unspecified; I10 Essential (primary) hypertension; M81.0 Age-related osteoporosis without current pathological fracture; Z72.0 Tobacco use
CPT/HCPCS: 99212

== ENCOUNTER 2019-08-27 14:02 | Emergency (ER) | payer MEDICARE, OTHER, SELFPAY ==
[2019-08-27 14:05] VITALS: BP 158/70; PULSE 65; RESP 18; TEMP 36.8; O2SAT 96; BMI 33.3
--- NOTE | 2019-08-27 14:12 | XR_ITS ---
PROCEDURE: XR CHEST PORTABLE CLINICAL HISTORY: cough/respiratory symptoms COMPARISON: CXR CHEST(2 VIEWS-NOT PORTABLE) from 05/21/2016 CXR CHEST(2 VIEWS-NOT PORTABLE) from 11/19/2016 CXR2V XR chest 2V from 06/02/[address] chest w con from 11/17/2017 FINDINGS: Mild cardiomegaly without failure. No lobar consolidation or collapse. Minimal atelectatic change right lung base. There is a granuloma in the left lung base No acute bony abnormalities. IMPRESSION: Cardiomegaly with minimal right basilar atelectasis Dictated by: Herman Charles MD 08/27/2019 15:07 Electronically signed by Herman Charles MD in [facility] 08/27/2019 15:07
--- NOTE | 2019-08-27 14:24 | HMH.COUGH ---
Cough Clinic HPI - History of Present Illness Complaint:: Cough HPI:: 68-year-old female, afebrile, persistent cough for several weeks to month. Cough nonproductive. No shortness of breath. No other symptoms. Patient is a longtime smoker. No history of COPD. No increased sputum production or shortness of breath. Otherwise at baseline level of health. Presented with her [id number] today who has similar symptoms. Cough is gotten more prominent over the past month since she has resumed smoking. On inhalers, uses them regularly. Took antibiotics within the past month for bronchitis. Onset (ago): week(s) Severity: mild Home Medications: Home Medications Medication Instructions Recorded Confirmed Type Umeclidinium [place] [Incruse 1 puff IH DAILY 06/03/17 08/27/19 History Ellipta] dilTIAZem HCL [Dilt-Xr] 240 mg PO DAILY 06/03/17 08/27/19 History cetirizine 10 mg capsule 10 mg PO QDAY cap 06/11/17 08/27/19 History ferrous sulfate 325 mg (65 mg 325 mg PO QDAY tab 06/11/17 08/27/19 History iron) tablet hydroxyzine HCl 25 mg tablet 12.5 mg PO TID tab 06/11/17 08/27/19 History Atorvastatin Calcium [Lipitor 40mg 40 mg PO HS 06/22/18 08/27/19 History Tablet] Fluoxetine HCl 20 mg PO DAILY 06/22/18 08/27/19 History Fluticasone/Salmeterol [Advair 1 inh IH BID 06/22/18 08/27/19 History 250/50mcg Diskus] Furosemide [Lasix 40mg tab] 40 mg PO BID 06/22/18 08/27/19 History Metformin HCl 500 mg PO DAILY 06/22/18 08/27/19 History Ropinirole HCl [Requip] 5 mg PO DAILY 06/22/18 08/27/19 History Umeclidinium [place] [Incruse 62.5 mcg IH DAILY 06/22/18 08/27/19 History Ellipta] lisinopriL [Lisinopril 10mg Tab] 10 mg PO DAILY 06/22/18 08/27/19 History Erythromycin Base [Erythromycin 1 applicatio EYE-RIGHT TID 12/11/18 08/27/19 History 1gm opth ointment] Tramadol HCl [Tramadol 50mg 50 mg PO QID 02/15/19 08/27/19 History Tab] Doxycycline Hyclate [Doxycycline 100 mg PO Q12 5 Days #10 cap 08/27/19 Rx 100mg Capsule] predniSONE [Deltasone 10mg tablet] 20 mg PO BID 5 Days #20 tab 08/27/19 Rx Allergies/Adverse Reactions: Allergies Allergy/AdvReac Type Severity Reaction Status Date / Time hydrochlorothiazide Allergy Severe ITCHING Verified 08/27/19 14:04 amlodipine Allergy Intermediate ITCHING Verified 08/27/19 14:04 Cough Clinic Triage - Symptoms Fever History: No Chills: No Myalgia: No Nasal Drainage: No Sore Throat: No Productive Cough: Yes Non-productive Cough: No Ear or Sinus Pain: No Joint Pain: No Chest Pain: No Rash: No Shortness of Breath: No Nausea or Vomitting: No Headache: No Abdominal Pain: No Diarrhea: No - Exposure History Foreign Travel: No Direct Contact with COVID-19 Patient: No - Risk Factors Greater than 60 Years Old: Yes COPD: Yes Diabetes: Yes Heart Disease: No Home Oxygen Use: No Chronic Renal Disease: No Chronic Liver Disease: No Neurologic/Neurodevelopmental/intellectual disability: No Other Chronic Diseases: No If Female, currently : No Current Smoker: Yes Former Smoker: No Cough [facility] History I have reviewed the patient's past medical history: Yes Medical History: Reports:: Anxiety, Chronic Obstructive Pulmonary Disease (COPD), Depression, Diabetes Mellitus Type 2, Gastroesophageal Reflux Disease(GERD), Hyperlipidemia, Hypertension, Osteoporosis Denies:: Cancer, Diabetes Mellitus Type 1, Internal Pacemaker, MRSA, Seizures Other Medical History: Reports: Anemia, Arthritis, Cataracts, Osteoporosis. Denies: Blood Transfusion Reaction Laterality Cases: Bilateral: Arthroscopy Shoulder Other Surgeries: Yes: Appendectomy, Cardiac Catheterization, Cholecystectomy, Colonoscopy, EGD, Hysterectomy-Total, Tubal Ligation, Other. No: Pacemaker Amputation: No Fractures: No Comment: cholecystectomy - Social History Smoking Status: Current every day smoker Tobacco Type: cigarettes # Packs/Day (cigarettes): 1 #Yrs smoked (if former smoker): 4
[2019-08-27 15:10] VITALS: BP 158/70; PULSE 65; RESP 18; TEMP 36.8; O2SAT 96
== END 2019-08-27 15:10 | disposition home or self-care (01) ==
PROVIDERS: Emergency Provider Internal Medicine Adolescent Medicine; PCP Family Medicine
DX: J44.1 Chronic obstructive pulmonary disease with (acute) exacerbation (principal); F41.8 Other specified anxiety disorders; E11.9 Type 2 diabetes mellitus without complications; K21.9 Gastro-esophageal reflux disease without esophagitis; E78.5 Hyperlipidemia, unspecified; I10 Essential (primary) hypertension; M81.0 Age-related osteoporosis without current pathological fracture; F17.210 Nicotine dependence, cigarettes, uncomplicated; Z79.899 Other long term (current) drug therapy; Z88.8 Allergy status to other drugs, medicaments and biological substances
CPT/HCPCS: G0463; 71045; 99201; 99212

== ENCOUNTER → 2019-11-30 12:58 | Outpatient (POV) | payer MEDICARE, OTHER, SELFPAY | PROVIDERS: PCP Family Medicine; Visit Provider Dermatology | DX: Z00.00 Encounter for general adult medical examination without abnormal findings (principal) ==

== ENCOUNTER → 2019-12-22 16:06 | Outpatient (CLI) | payer MEDICARE, OTHER, SELFPAY ==
--- NOTE | 2019-12-22 16:23 | XR_ITS ---
PROCEDURE: XR CHEST AP CLINICAL HISTORY: COVID 19 TESTING Cough COMPARISON: CR CXR CHEST(2 VIEWS-NOT PORTABLE) from 11/19/2016 CR CXR2V XR chest 2V from 06/02/[address] chest w con from 11/17/2017 CR XR CHEST PORTABLE from 08/27/2019 FINDINGS: Mild cardiomegaly without failure. No lobar consolidation or collapse. Minimal nodularity noted in the left apex over the medial aspect of the clavicle at 6 mm possibly related to summation artifact and may be confirmed with follow-up. No acute bony abnormalities. IMPRESSION: Cardiomegaly, no acute finding. Possible right upper lobe nodule Dictated b Herman Charles MD 12/22/2019 16:36 Herman Charles MD in [facility] 12/22/2019 16:36
[2019-12-22 16:54] LABS: Basophils # 0.1 K/mm3 (0-0.2); Basophils % 0.5 % (0.1-2.0); Eosinophils # 0.4 K/mm3 (0.0-0.4); Eosinophils % 3.8 % (0.1-12.0); Hematocrit 39.9 % (37.0-47.0); Hemoglobin 13.5 g/dL (12.2-16.2); Lymphocytes # 3.1 K/mm3 (0.7-4.5); Lymphocytes % 27.6 % (10-50); Mean Corpuscular HGB Conc 33.9 g/dL (31.8-35.4); Mean Corpuscular Hemoglobin 30.6 pg (27.0-31.2); Mean Corpuscular Volume 90.4 fl (81-99); Mean Platelet Volume 7.7 fl (7.4-10.4); Monocytes # 0.5 K/mm3 (0.1-1.0); Monocytes % 4.5 % (1.7-9.3); Neutrophils # 7.2 K/mm3 (1.8-7.8); Neutrophils % 63.7 % (37.0-80.0); Platelet Count 398 K/mm3 (142-424); Red Blood Count 4.41 M/mm3 (4.20-5.40); Red Cell Distribution Width 14.6 % (11.5-17.5); White Blood Count 11.3 K/mm3 (4.8-10.8)
== END ==
PROVIDERS: PCP Physician Assistant; Visit Provider Physician Assistant
DX: Z03.818 Encounter for observation for suspected exposure to other biological agents ruled out (principal)
CPT/HCPCS: 36415; 71045; 85025; U0003

== ENCOUNTER → 2019-12-27 10:33 | Outpatient (CLI) | payer MEDICARE, OTHER, SELFPAY ==
--- NOTE | 2019-12-27 10:51 | CA_ITS ---
APPROVED REPORT EXAM: Comprehensive 2D, Doppler, and color-flow Echocardiogram Pharmacy Intake Coordinator: Renea Pack CRT Ht: 133 ft 1 in Wt: 201lbs BSA: 20.20 BP: 133/76 mmHg Indications: COPD, Diabetes, Fatigue, Hypertension/HDD, smoker 2D Dimensions LVOT 1.85 cm (M/F) 1.5-2.5 M-Mode Dimensions RVDd 3.10 cm (0.9-2.6) LVDd 4.55 cm (3.5-5.7) LVDs 3.14 cm (3.5-5.7) IVSd 1.57 cm (0.6-1.1) PWd 0.85 cm (0.6-1.1) EF (Teich) 58.80% FS 31.00% EDV (Teich) 94.90 mL ESV (Teich) 39.10 mL LV Diastology E/A Ratio 0.83 Mitral Valve MV A Velocity 69.00 (40-130 cm/s) Left Ventricle Left atrium is mildly enlarged, left ventricle is normal size, mild concentric left ventricular hypertrophy, visually estimated ejection fraction 55% with no regional wall motion abnormality. Grade 1 diastolic dysfunction seen without tissue Doppler evidence of raise left atrial pressure. Right Ventricle Right atrium and right ventricle are mildly enlarged with normal contractility. Aortic Valve Aortic valve is minimally thickened and fibrosed, there is no aortic stenosis or aortic insufficiency. Mitral Valve Mitral valve is grossly normal, there is mild mitral regurgitation. Tricuspid Valve Tricuspid valve is grossly normal, there is mild tricuspid regurgitation, tricuspid regurgitation jet velocity is inadequate for calculation of the right ventricular systolic pressure. Pulmonic Valve Pulmonic valve is poorly visualized. Great Vessels Aortic root is normal size. Pericardium No significant pericardial effusion noted. Conclusion 1. Mildly enlarged left atrium, normal left ventricular size, mild concentric left ventricular hypertrophy, visually estimated ejection fraction 55% with no regional wall motion abnormality, grade 1 diastolic dysfunction seen without tissue Doppler evidence of raise left atrial pressure. 2. Mildly enlarged right ventricle with normal contractility. 3. Mild mitral and tricuspid regurgitation. 4. No significant pericardial effusion noted. Electronically signed by : Meet Adams, 12/27/2019 19:52:44
== END ==
PROVIDERS: PCP Family Medicine; Visit Provider Nurse Practitioner Family
DX: R06.00 Dyspnea, unspecified; E11.9 Type 2 diabetes mellitus without complications; E78.49 Other hyperlipidemia; I10 Essential (primary) hypertension; J44.9 Chronic obstructive pulmonary disease, unspecified; F17.209 Nicotine dependence, unspecified, with unspecified nicotine-induced disorders; Z79.84 Long term (current) use of oral hypoglycemic drugs
CPT/HCPCS: 93306

== ENCOUNTER → 2019-12-30 10:07 | Outpatient (CLI) | payer MEDICARE, OTHER, SELFPAY ==
--- NOTE | 2019-12-30 10:12 | XR_ITS ---
PROCEDURE: XR CHEST 2V CLINICAL HISTORY: R UPPER LOBE PULMONARY NODULE COMPARISON: CR CXR2V XR chest 2V from 06/02/[address] chest w con from 11/17/2017 CR XR CHEST PORTABLE from 08/27/2019 CR XR CHEST AP from 12/22/2019 FINDINGS: The cardiomediastinal silhouette and pulmonary vascularity are within normal limits. Lungs are clear bilaterally. Previously noted nodular opacity overlying the medial aspect of the left clavicle is not reproduced on today's exam and may have been due to summation artifact. There are old fractures of the left 5th 6th and 7th ribs. IMPRESSION: No acute finding. Previously noted nodular opacity in the left upper lobe no longer apparent and may have been due to summation artifact Dictated by: Herman Charles MD 12/30/2019 14:46 Herman Charles MD in [place] 12/30/2019 14:46
== END ==
PROVIDERS: PCP Family Medicine; Visit Provider Physician Assistant
DX: R91.1 Solitary pulmonary nodule (principal)
CPT/HCPCS: 71046

== ENCOUNTER 2020-01-19 09:57 | Outpatient (CLI) | payer MEDICARE, OTHER, SELFPAY ==
[2020-01-19 10:25] VITALS: BP 128/68; PULSE 70; RESP 18; TEMP 36.2; O2SAT 94
[2020-01-19 10:55] VITALS: BP 145/59; PULSE 62; RESP 18; O2SAT 95
[2020-01-19 11:25] VITALS: BP 142/65; PULSE 63; RESP 18; O2SAT 95
[2020-01-19 11:55] VITALS: BP 141/69; PULSE 69; RESP 18; O2SAT 94
[2020-01-19 12:26] VITALS: BP 139/54; PULSE 65; RESP 18; O2SAT 95
== END 2020-01-19 12:29 | disposition home or self-care (01) ==
LOC: INF 09:57
PROVIDERS: Visit Provider Nurse Practitioner
DX: J45.40 Moderate persistent asthma, uncomplicated (principal)
CPT/HCPCS: 96372; J2357

== ENCOUNTER → 2020-01-25 09:04 | Outpatient (CLI) | payer MEDICARE, OTHER, SELFPAY ==
--- NOTE | 2020-01-25 09:12 | XR_ITS ---
PROCEDURE: XR FOOT LT MIN 3V CLINICAL INDICATION: PAIN IN L FOOT COMPARISON: No exams were available for comparison FINDINGS: No fracture or dislocation. No lytic or blastic change. There is normal mineralization. The joint spaces are well-preserved. No significant degenerative/arthritic changes. No erosive changes evident. Other findings:There is a small calcaneal spur without erosion IMPRESSION: No acute findings. Dictated by: Herman Charles MD 01/25/2020 18:37 Herman Charles MD in [place] 01/25/2020 18:37
== END ==
PROVIDERS: PCP Family Medicine; Visit Provider Family Medicine
DX: M79.672 Pain in left foot (principal)
CPT/HCPCS: 73630

== ENCOUNTER 2020-02-16 09:36 | Outpatient (CLI) | payer MEDICARE, OTHER, SELFPAY ==
[2020-02-16 10:06] VITALS: BP 144/88; PULSE 77; RESP 18; TEMP 36.4; O2SAT 94
[2020-02-16 10:36] VITALS: BP 131/72; PULSE 71; RESP 18; O2SAT 94
[2020-02-16 11:06] VITALS: BP 117/63; PULSE 68; RESP 18; O2SAT 95
[2020-02-16 11:36] VITALS: BP 134/78; PULSE 70; RESP 18; O2SAT 94
[2020-02-16 12:06] VITALS: BP 144/76; PULSE 70; RESP 18; O2SAT 95
== END 2020-02-16 12:06 | disposition home or self-care (01) ==
LOC: INF 09:36
PROVIDERS: Visit Provider Allergy & Immunology
DX: J45.40 Moderate persistent asthma, uncomplicated (principal)
CPT/HCPCS: 96372; J2357

== ENCOUNTER → 2020-02-18 07:42 | Outpatient (CLI) | payer MEDICARE, OTHER, SELFPAY ==
--- NOTE | 2020-02-18 08:16 | MM_ITS ---
PROCEDURE: MM DIG SCREENING MAMM BI W/CAD Referring Doctor: Maribel Peralta Patient Age:69Y CLINICAL INDICATION: SCREENING 69-YEAR-OLD FEMALE WITH NO NEW COMPLAINTS. NO HORMONES. FAMILY HISTORY: MATERNAL AUNT AND MATERNAL COUSIN WITH BREAST CANCER COMPARISON: MG DMSB DIGITAL MAMM-SCREEN BILATERAL from 06/28/2010 MG DMSB DIGITAL MAMM-SCREEN BILATERAL from 01/02/2012 MG DMSB DIG MAMM-SCREEN CARLIN from 10/26/2014 MG DMSB DIG MAMM-SCREEN CARLIN from 12/11/2015 TECHNIQUE: Standard CC and MLO images were obtained. R2 CAD reviewed. Bilateral digital breast tomosynthesis included. FINDINGS: Minimal Residual Fibroglandular Elements In Both Breast But Stable Mild Asymmetry. No Suspicious Nor New Dominant Mass. stable minor asymmetry RIGHT BREAST no new areas of concern stable area of fibroglandular elements towards upper-outer quadrant. LEFT BREAST no new areas of concern . there are a few additional scattered benign appearing small dense calcifications in the left which can be followed safely given their scattered appearance IMPRESSION: NO SUSPICIOUS OR SIGNIFICANT APPEARING FINDINGS EITHER BREAST A Few Additional Small Benign-appearing Calcification Left Breast Noted, but No Areas Of Significant Concern Either Breast BILATERAL FOLLOW-UP IN 1 YEAR BI-RAD Category: 2 Benign Finding(s) FOLLOW-UP: 1YR 1 Year Follow-up (A letter has been sent to the patient regarding results of the study.) Dictated by: Philippe Cerna MD 02/24/2020 10:40 Philippe Cerna MD in [place] 02/24/2020 10:40
== END ==
PROVIDERS: PCP Family Medicine; Visit Provider Nurse Practitioner
DX: Z12.31 Encounter for screening mammogram for malignant neoplasm of breast (principal)
CPT/HCPCS: 77063; 77067

== ENCOUNTER → 2020-03-15 09:52 | Outpatient (CLI) | payer MEDICARE, OTHER, SELFPAY ==
[2020-03-15 10:02] VITALS: BP 157/93; PULSE 83; RESP 18; TEMP 36.3; O2SAT 95
[2020-03-15 10:32] VITALS: BP 149/89; PULSE 88; RESP 18; O2SAT 95
[2020-03-15 11:02] VITALS: BP 147/81; PULSE 84; RESP 18; O2SAT 94
[2020-03-15 11:32] VITALS: BP 144/77; PULSE 75; RESP 18; O2SAT 95
== END ==
PROVIDERS: Visit Provider Allergy & Immunology
DX: J45.40 Moderate persistent asthma, uncomplicated (principal)
CPT/HCPCS: 96372; J2357

== ENCOUNTER 2020-04-12 11:07 | Outpatient (CLI) | payer MEDICARE, OTHER, SELFPAY ==
[2020-04-12 11:26] VITALS: BP 125/79; PULSE 85; RESP 18; TEMP 36.2; O2SAT 97
== END 2020-04-12 11:49 | disposition home or self-care (01) ==
LOC: INF 11:07
PROVIDERS: Visit Provider Allergy & Immunology
DX: J45.40 Moderate persistent asthma, uncomplicated (principal)
CPT/HCPCS: 96372; J2357

== ENCOUNTER 2020-05-10 10:20 | Outpatient (CLI) | payer MEDICARE, OTHER, SELFPAY ==
[2020-05-10 10:50] VITALS: BP 116/64; PULSE 65; RESP 20; TEMP 36.1
== END 2020-05-10 11:05 | disposition home or self-care (01) ==
LOC: INF 10:29
PROVIDERS: Visit Provider Nurse Practitioner
DX: J45.40 Moderate persistent asthma, uncomplicated (principal)
CPT/HCPCS: 96372; J2357

== ENCOUNTER 2020-06-19 10:20 | Outpatient (CLI) | payer MEDICARE, OTHER, SELFPAY ==
[2020-06-19 10:46] VITALS: BP 138/68; PULSE 66; RESP 18; TEMP 36.3; O2SAT 95
== END 2020-06-19 10:46 | disposition home or self-care (01) ==
LOC: INF 10:23
PROVIDERS: PCP Family Medicine; Visit Provider Surgery
DX: J45.40 Moderate persistent asthma, uncomplicated (principal)
CPT/HCPCS: 96372; J2357

== ENCOUNTER → 2020-07-10 12:42 | Outpatient (CLI) | payer MEDICARE, OTHER, SELFPAY ==
--- NOTE | 2020-07-10 12:46 | XR_ITS ---
PROCEDURE: XR DEXA AXIAL SKELETON CLINICAL HISTORY: OSTEOPENIA, UNSPECIFIED LOCATION COMPARISON: DREW NAIR BONE3 BONE DENSITOMETRY(HIP:LT SPINE from 12/11/2015 FINDINGS: The right hip BMD is 0.653 with a T-score of -1.8. The left hip BMD is 0.663 with a T-score of -1.7. The lumbar spine BMD is 1.043 with a T-score of 0.0. Previously the lowest bone density was in the right femoral neck with a T-score -1.4 IMPRESSION: This patient is considered osteopenic according to the World Health Organization criteria. Bone density is between 10 and 25 percent below young normal. Fracture risk is moderate. Treatment is advised. Based on these results a follow-up exam is recommended in 2 year. Dictated by: Herman Charles MD 07/11/2020 08:37 Herman Charles MD in [place] 07/11/2020 08:37
--- NOTE | 2020-07-10 12:47 | CT_ITS ---
PROCEDURE: CT LUNG SCREENING CLINICAL INDICATION: HX OF NICOTINE DEPENDENCE Current smoker 53 pack year smoking history COMPARISON: CT CHESTW CT chest w con from 11/17/[address] abdomen pelvis wo con from 06/22/2018 TECHNIQUE: The exam was performed on a [employer] Speed [address] scanner using 2.90 mGy CTDI. A low dose helical CT CHEST was performed on a multi-detector scanner. All CT scans at the facility use one or more dose reduction, viz: automated exposure control, ma/kV adjustment per patient size (including targeted exams where dose is matched to indication, i.e. head), or iterative reconstruction technique. The LDCT was performed in a facility that meets the criteria for the screening program. Data regarding this exam was submitted to ACR which is an approved registry. The order for this exam indicates that it came as a result of a lung cancer screening counseling shard decision-making visit that included all the elements required of such a visit including smoking cessation. The radiologist interpreting this exam meets the CMS criteria for the LDCT lung cancer screening program. The exam is reported using the Lung-RADS classification scale and reported to the ACR registry. NOTE: This study was performed for the specific purposes of lung cancer screening and is not an alternative to diagnostic chest CT. RADIATION DOSE: CTDI vol(CT dose Index-volume) = 2.90mG DLP (Dose Length Product) = 106.55 mGcm FINDINGS: COPD with scattered areas of scarring. Small fissural nodule is present in the right minor fissure and may be due to small fissural node. No suspicious nodules. OTHER FINDINGS: Coronary artery calcifications present. There is some completely imaged peripancreatic lymph nodes. IMPRESSION: Lung-RADS Category 1 Negative Follow-up: Continue annual screening with LDCT in 12 months Dictated by: Herman Charles MD 07/23/2020 11:55 Herman Charles MD in [place] 07/23/2020 11:55
== END ==
PROVIDERS: PCP Family Medicine; Visit Provider Family Medicine
DX: M85.89 Other specified disorders of bone density and structure, multiple sites (principal); Z87.891 Personal history of nicotine dependence; Z12.2 Encounter for screening for malignant neoplasm of respiratory organs
CPT/HCPCS: 71271; 77080

== ENCOUNTER 2020-07-17 09:30 | Outpatient (CLI) | payer MEDICARE, OTHER, SELFPAY ==
[2020-07-17 09:46] VITALS: BP 134/77; PULSE 75; RESP 18; TEMP 36.4; O2SAT 94
== END 2020-07-17 10:07 | disposition home or self-care (01) ==
LOC: INF 09:30
PROVIDERS: Visit Provider Allergy & Immunology
DX: J45.40 Moderate persistent asthma, uncomplicated (principal)
CPT/HCPCS: 96372; J2357

== ENCOUNTER 2020-08-14 09:58 | Outpatient (CLI) | payer MEDICARE, OTHER, SELFPAY ==
[2020-08-14 10:25] VITALS: BP 118/71; PULSE 77; RESP 18; TEMP 36.4; O2SAT 97
== END 2020-08-14 10:50 | disposition home or self-care (01) ==
LOC: INF 09:58
PROVIDERS: PCP Family Medicine; Visit Provider Nurse Practitioner
DX: J45.40 Moderate persistent asthma, uncomplicated (principal)
CPT/HCPCS: 96372; J2357

== ENCOUNTER 2020-09-11 10:36 | Outpatient (CLI) | payer MEDICARE, OTHER, SELFPAY ==
[2020-09-11 10:54] VITALS: BP 140/69; PULSE 84; RESP 18; TEMP 36.3; O2SAT 97
== END 2020-09-11 11:15 | disposition home or self-care (01) ==
LOC: INF 10:36
PROVIDERS: Visit Provider Allergy & Immunology
DX: J45.40 Moderate persistent asthma, uncomplicated (principal)
CPT/HCPCS: 96372; J2357

== ENCOUNTER → 2020-09-25 09:28 | Outpatient (POV) | payer MEDICARE, OTHER, SELFPAY ==
[2020-09-25 09:46] VITALS: BP 132/85; PULSE 74; RESP 18; TEMP 36.8; O2SAT 98; BMI 33.3
--- NOTE | 2020-09-25 10:37 | P.CONS_ITS ---
[facility] Pain Management SOAP Note Subjective:: Patient is a pleasant 69-year-old white female who presents today for follow-up. Patient had mild procedure over a year ago. Patient is done extremely well until recently her pain is beginning to return she rates her pain a 9 out of 10. She is done well with epidural injections in the past and would like to move forward with one. She gets up to 80% relief for 3 months. Patient is not on any anticoagulation therapy. ROS General: no recent weight change, no fever, no sleep disturbances Respiratory: no cough, no shortness of air, no recurring pulmonary infections Cardiovascular/Peripheral Vascular: No chest pain, No palpitations, no edema, no shortness of breath. Gastrointestinal: no new onset incontinence, normal bowel movements reported Genitourinary: no new onset incontinence Musculoskeletal: Back pain, leg pain Psychiatric: normal mood/ affect Neurological: [denies new onset weakness in extremities], [denies new onset balance issues] Objective:: Physical Exam General: Alert and oriented x3, no acute distress, pleasant and cooperative, [on room air] Lungs: Resps E/U, Symmetrical chest expansion Eyes: PERRL Musculoskeletal: Flexion and extension of lumbar spine somewhat guarded secondary to pain, deep tendon reflexes normal, strength in upper and lower extremities [5/5], [abnormal gait noted] Neurological: 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 She is also on tramadol 50 mg 3 times a day. Patient's Daniel #[id number] reviewed and appropriate she has not had this for quite some time we will restart it today. We will follow up with her after her injection reassess her symptoms at that time she has been instructed to call the office if she has any issues prior to her next appointment. Dr. Gillette has reviewed this note and agrees with this plan of care. This note was dictated using voice recognition software and may contain errors or omissions [facility] History I have reviewed the patient's past medical history: Yes Medical History: Reports:: Anxiety, Chronic Obstructive Pulmonary Disease (COPD), Depression, Diabetes Mellitus Type 2, Gastroesophageal Reflux Disease(GERD), Heart Murmur, Hyperlipidemia, Hypertension, Osteoporosis Denies:: Cancer, Diabetes Mellitus Type 1, Internal Pacemaker, MRSA, Seizures *Have you ever received a pneumonia vaccine?: No *Have you received a flu vaccine this season?: No Other Medical History: Reports: Anemia, Arthritis, Cataracts, Osteoporosis. Denies: Blood Transfusion Reaction Laterality Cases: Bilateral: Arthroscopy Shoulder Other Surgeries: Yes: Appendectomy, Cardiac Catheterization, Cholecystectomy, Colonoscopy, EGD, Hysterectomy-Total, Tubal Ligation, Other. No: Pacemaker Amputation: No Fractures: Yes (lt pinky finger) - *Social History Smoking Status: Current every day smoker Tobacco Type: cigarettes # Packs/Day (cigarettes): 1 #Yrs smoked (if former smoker): 4 Alcohol Intake: never Alcohol Intake Frequency:: other Substance Use Type: denies use *Occupational Status:: other Housing: apartment Household Members: friend(s) *Travel in the last 8 weeks: None - Psychiatric History Pschychiatric History:: Reports:: Anxiety, Depression Family Hx:: Coronary Artery Disease, Heart Attack, Hypertension, Stroke
== END ==
PROVIDERS: PCP Family Medicine; Visit Provider Clinical Nurse Specialist Family Health
DX: M51.16 Intervertebral disc disorders with radiculopathy, lumbar region (principal)
CPT/HCPCS: 99212; G0463

== ENCOUNTER 2020-10-06 10:23 | Day surgery (SDC) | payer MEDICARE, OTHER, SELFPAY ==
[2020-10-06 10:54] VITALS: BP 146/77; PULSE 76; RESP 18; TEMP 36.4; O2SAT 95; BMI 32.8
[2020-10-06 12:37] VITALS: BP 134/80; PULSE 73; O2SAT 97
[2020-10-06 12:43] VITALS: BP 134/80; PULSE 73; RESP 18; O2SAT 97
[2020-10-06 13:30] VITALS: BP 157/74; PULSE 68; RESP 18; O2SAT 95
--- NOTE | 2020-10-06 14:24 | P.PCN_ITS ---
- Procedure Date: 10/06/20 Time: 14:24 Anesthesiologist:: Ele Cosme MD Complications:: None Pre-procedure Diagnosis:: Degenerative disc disease of the lumbar spine, lumbar radiculopathy, back pain Post-procedure Diagnosis:: Same Indications for Procedure:: Patient is a very pleasant 69-year-old white female who presents today with degenerative disc disease of her lumbar spine with radiculopathy symptoms. Patient previously underwent the mild procedure over a year ago and had been doing extremely well until recently where she notes her back pain radiating into her legs began to return. She has been undergoing lumbar epidural steroid injections and notes approximately 80% relief after each injection for 3 months. On exam flexion extension of the lumbar spine is somewhat guarded because of pain in her low back, motor strength is grossly intact in upper and lower extremities, antalgic gait is noted. Plan for today is for her to undergo a lumbar epidural steroid injection at L4-L5. Procedure Details:: Informed consent was obtained and the risk and benefits of the procedure was explained to the patient. The patient was taken to the procedure room. The patient was placed prone on the procedure table. The patient was prepped and draped in sterile fashion. C-arm fluoroscopy was used to view the lumbar spine. Skin and subcutaneous tissues were anesthetized using lidocaine. I placed an 18-gauge epidural needle and advanced into the L4-L5 interspace using fluoroscopic guidance and [id number] to air. After confirmation of ne edle placement in the epidural space with dye I injected 2 mL of lidocaine 1.5% with Depo-Medrol 80 mg. Patient tolerated the procedure well with no complications. Plan and Disposition:: Patient was discharged home in stable condition. We will follow up with her in 2 weeks for reevaluation.
== END 2020-10-06 13:30 | disposition home or self-care (01) ==
LOC: SC.PAINP 10:24
PROVIDERS: PCP Family Medicine; Visit Provider Anesthesiology Pain Medicine
DX: M51.16 Intervertebral disc disorders with radiculopathy, lumbar region (principal); E78.5 Hyperlipidemia, unspecified; I10 Essential (primary) hypertension; J44.9 Chronic obstructive pulmonary disease, unspecified; K21.9 Gastro-esophageal reflux disease without esophagitis; M19.90 Unspecified osteoarthritis, unspecified site; M81.0 Age-related osteoporosis without current pathological fracture; E11.9 Type 2 diabetes mellitus without complications; F32.9 Major depressive disorder, single episode, unspecified; F41.9 Anxiety disorder, unspecified; D64.9 Anemia, unspecified; Z72.0 Tobacco use
CPT/HCPCS: 62323; J1040; Q9966

== ENCOUNTER 2020-10-11 13:50 | Outpatient (CLI) | payer MEDICARE, OTHER, SELFPAY ==
[2020-10-11 14:15] VITALS: BP 146/83; PULSE 92; RESP 18; TEMP 36.6
== END 2020-10-11 14:30 | disposition home or self-care (01) ==
LOC: INF 14:03
PROVIDERS: PCP Family Medicine; Visit Provider Allergy & Immunology
DX: J45.40 Moderate persistent asthma, uncomplicated (principal)
CPT/HCPCS: 96372; J2357

== ENCOUNTER → 2020-10-30 10:11 | Outpatient (POV) | payer MEDICARE, OTHER, SELFPAY ==
[2020-10-30 10:24] VITALS: BP 148/76; PULSE 80; RESP 18; O2SAT 96; BMI 32.4
--- NOTE | 2020-10-30 12:04 | HMH.PAINSOAP ---
[facility] Pain Management SOAP Note Subjective:: Patient is a 69-year-old white female who presents today for follow-up. She is being treated for degenerative disc disease lumbar spine with lumbar radiculopathy symptoms and low back pain. Patient previously had a mild procedure in the past which was approximately 1 year ago and was doing well until recently. She is now having low back pain with radiation into lower extremities, worse to the left leg. She denies any paresthesia or saddle anesthesia. She denies any bowel or bladder changes. She has been undergoing lumbar epidural steroid injections and notes approximately 80% relief after each injection for about 3 months. She recently had a lumbar epidural steroid injection at L4-L5. She got 80% relief for a week. Patient would like to proceed with a repeat injection to see if she gets relief. Today, she rates her pain a 6 out of 10. She has tried and failed conservative therapies of physical therapy for more than 6 weeks along with continued home stretching. She has also tried ice and heat therapies and anti-inflammatories with no significant relief. Review of Systems General: No recent weight changes, no fever, no sleep disturbances Respiratory: No cough, no shortness of air, no recurring pulmonary infections Cardiovascular/peripheral vascular: No chest pain, no palpitations, no edema, no shortness of breath Gastrointestinal: No new onset incontinence, normal bowel movements reported Genitourinary: No new onset incontinence Musculoskeletal: Low back pain with radiation into left leg Psychiatric: Normal mood/affect Neurological: [Denies weakness in extremities], [denies balance issues] Objective:: Physical exam General: Alert and oriented x3, no acute distress, pleasant and cooperative, [on room air] Lungs: Respirations even and unlabored, symmetrical chest expansion Eyes: PERRL Musculoskeletal: Flexion and extension of [] lumbar spine somewhat guarded secondary to pain, deep tendon reflexes normal, strength in upper and lower extremities [5/5], [abnormal gait noted] 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 She is not on anticoagulation therapy. She will continue with home stretching and ice and heat therapies. We will see her back after her injection to reevaluate her symptoms. She has been instructed to contact clinic if she has any concerns for next morning. Risks and benefits of the procedure have been explained to the patient. Patient would like to proceed with the procedure. Possible side effects of corticosteroids have been discussed with the patient. Patient has been instructed to contact the clinic with any concerns before the next appointment. Dr. Gillette has reviewed this note and agrees with this plan of care. This note was dictated using voice recognition software and make contain errors or omissions. [facility] History I have reviewed the patient's past medical history: Yes Medical History: Reports:: Anxiety, Chronic Obstructive Pulmonary Disease (COPD), Depression, Diabetes Mellitus Type 2, Gastroesophageal Reflux Disease(GERD), Heart Murmur, Hyperlipidemia, Hypertension, Osteoporosis Denies:: Cancer, Diabetes Mellitus Type 1, Internal Pacemaker, MRSA, Seizures *Have you ever received a pneumonia vaccine?: Yes *Have you received a flu vaccine this season?: Yes Other Medical History: Reports: Anemia, Arthritis, Cataracts, Osteoporosis. Denies: Blood Transfusion Reaction Laterality Cases: Bilateral: Arthroscopy Shoulder Other Surgeries: Yes: Appendectomy, Cardiac Catheterization, Cholecystectomy, Colonoscopy, EGD, Hysterectomy-Total, Tubal Ligation, Other. No: Pacemaker Amputation: No Fractures: Yes (lt pinky finger) - *Social History Smoking Status
--- NOTE | 2020-11-28 13:14 | PC.NURSE ---
Attempted to call patient to notify of time change for injection 11/28 3 times. 2 times no answer, no voicemail. 1 time was picked up and hung up without saying anything. [phone]
== END ==
PROVIDERS: PCP Family Medicine; Visit Provider Clinical Nurse Specialist Family Health
DX: M51.16 Intervertebral disc disorders with radiculopathy, lumbar region (principal)
CPT/HCPCS: 99212; G0463

== ENCOUNTER 2020-11-07 10:40 | Outpatient (CLI) | payer MEDICARE, OTHER, SELFPAY ==
[2020-11-07 11:26] VITALS: BP 151/82; PULSE 71; RESP 17; TEMP 36.3; O2SAT 95
== END 2020-11-07 11:27 | disposition home or self-care (01) ==
LOC: INF 10:40
PROVIDERS: Visit Provider Nurse Practitioner
DX: J45.40 Moderate persistent asthma, uncomplicated (principal)
CPT/HCPCS: 96372; J2357

== ENCOUNTER → 2020-11-24 10:10 | Outpatient (CLI) | payer MEDICARE, OTHER, SELFPAY ==
--- NOTE | 2020-11-24 10:13 | US_ITS ---
APPROVED REPORT Exam Type: Lower Extremity Segmental Pressures Metal Furrer: Olga David RDCS Indications Claudication: Current Smoker History of Smoking CAD Risk Factors Hypertension Hyperlipidemia Diabetes Pressures/Indices Right Indices Left Indices Brachial 149.00 mmHg Brachial 146.00 mmHg Low Thigh 156.00 mmHg 1.05 Low Thigh 162.00 mmHg 1.09 Calf 165.00 mmHg 1.11 Calf 161.00 mmHg 1.08 Ankle(PT) 179.00 mmHg 1.20 Ankle(PT) 142.00 mmHg 0.95 Ankle(DP) 169.00 mmHg 1.13 Ankle(DP) 163.00 mmHg 1.09 Digit 119.00 mmHg 0.80 Digit 151.00 mmHg 1.01 Findings RIGHT JAYDEN 1.20 LEFT JAYDEN 1.09 RIGHT TBI .8 LEFT TBI 1.01 WAVEFORMS NORMAL PULSES NORMAL Conclusion RIGHT JAYDEN 1.20 LEFT JAYDEN 1.09 RIGHT TBI .8 LEFT TBI 1.01 WAVEFORMS NORMAL PULSES NORMAL Normal appearing resting noninvasive lower extremity arterial study. Electronically signed by : Herman Charles MD 11/24/2020 16:26:46
== END ==
PROVIDERS: PCP Family Medicine; Visit Provider Family Medicine
DX: R53.1 Weakness (principal); G25.81 Restless legs syndrome; R09.89 Other specified symptoms and signs involving the circulatory and respiratory systems
CPT/HCPCS: 93923

== ENCOUNTER 2020-12-08 10:48 | Day surgery (SDC) | payer MEDICARE, OTHER, SELFPAY ==
[2020-12-08 10:20] VITALS: BP 128/88; PULSE 95; RESP 17; TEMP 36.6; O2SAT 95
[2020-12-08 11:00] VITALS: BP 153/69; PULSE 89; RESP 18; TEMP 36.4; O2SAT 98; BMI 70.8
--- NOTE | 2020-12-08 11:23 | HMH.PMPROC ---
- Procedure Date: 12/08/20 Time: 11:23 Anesthesiologist:: Ele Cosme MD Complications:: None Pre-procedure Diagnosis:: Degenerative disc disease of the lumbar spine, lumbar radiculopathy Post-procedure Diagnosis:: Same Indications for Procedure:: She is a very pleasant 70-year-old white female who presents today with chronic low back pain radiating into her legs related to the above diagnosis. She has previously undergone a mild procedure in the past approximately 1 year ago and states that her pain had significantly improved until recently. She states that the pain has gradually returned in her low back and radiates down into her legs and she states that the left leg is slightly worse than the right leg. She has previously undergone lumbar epidural steroid injections in the past and notes about 80% pain relief for about 3 months. She has tried and failed conservative treatment including oral pain medication and home stretching program for 6 weeks. The plan for today is for the patient to undergo a repeat lumbar epidural steroid injection at L5-S1 fluoroscopy. Procedure Details:: Informed consent was obtained and the risk and benefits of the procedure was explained to the patient. The patient was taken to the procedure room. The patient was placed prone on the procedure table. The patient was prepped and draped in sterile fashion. C-arm fluoroscopy was used to view the lumbar spine. Skin and subcutaneous tissues were anesthetized using lidocaine. I placed an 18-gauge epidural needle and advanced into the L5-S1 interspace using fluoroscopic guidance and [id number] to air and saline. After confirmation of needle placement in the epidural space with dye I injected 1 mL of lidocaine 1.0% with Depo-Medrol 80 mg. Patient tolerated the procedure well with no complications. Plan and Disposition:: We will follow-up with this patient in 2 weeks. Will reevaluate pain symptoms at that time.
[2020-12-08 11:28] VITALS: BP 140/70; PULSE 89; RESP 18; O2SAT 97
[2020-12-08 11:32] VITALS: BP 142/67; PULSE 85; RESP 18; O2SAT 96
[2020-12-08 11:46] VITALS: BP 156/70; PULSE 86; RESP 18; O2SAT 98
== END 2020-12-08 11:47 | disposition home or self-care (01) ==
LOC: SC.PAINP 10:49
PROVIDERS: PCP Family Medicine; Visit Provider Anesthesiology Pain Medicine
DX: M51.16 Intervertebral disc disorders with radiculopathy, lumbar region (principal); E78.5 Hyperlipidemia, unspecified; I10 Essential (primary) hypertension; E11.9 Type 2 diabetes mellitus without complications; K21.9 Gastro-esophageal reflux disease without esophagitis; M19.90 Unspecified osteoarthritis, unspecified site; D64.9 Anemia, unspecified; F41.9 Anxiety disorder, unspecified; F32.9 Major depressive disorder, single episode, unspecified; Z72.0 Tobacco use
CPT/HCPCS: 62323; 96372; J1040; J2357; Q9966

== ENCOUNTER → 2021-01-10 09:28 | Outpatient (CLI) | payer MEDICARE, OTHER, SELFPAY | PROVIDERS: PCP Family Medicine; Visit Provider Allergy & Immunology | DX: J45.909 Unspecified asthma, uncomplicated (principal) ==

== ENCOUNTER 2021-01-17 09:53 | Outpatient (CLI) | payer MEDICARE, OTHER, SELFPAY ==
[2021-01-17 10:28] VITALS: BP 141/89; PULSE 85; RESP 20; TEMP 36.2; O2SAT 96
== END 2021-01-17 10:55 | disposition home or self-care (01) ==
LOC: INF 09:54
PROVIDERS: PCP Family Medicine; Visit Provider Allergy & Immunology
DX: L50.9 Urticaria, unspecified (principal)
CPT/HCPCS: 96372; J2357

== ENCOUNTER → 2021-01-29 09:50 | Outpatient (POV) | payer MEDICARE, OTHER, SELFPAY ==
[2021-01-29 10:03] VITALS: BP 167/80; PULSE 70; RESP 18; O2SAT 95; BMI 31.1
--- NOTE | 2021-01-29 10:17 | HMH.PAINSOAP ---
[facility] Pain Management SOAP Note Subjective:: Patient is a 70-year-old white female who presents today for follow-up after a lumbar epidural steroid injection. Patient is being treated for degenerative disc disease lumbar spine with lumbar radiculopathy symptoms. She did undergo a lumbar epidural steroid injection at L5-S1. Patient has tried and failed conservative therapies of physical therapy and home stretching as well as oral medications. Patient says that she was having pain in her right low back area and right hip. This is the patient's #2 injection. Patient says that she gets 100% relief for about a month following the injections. She reports the same amount of relief with her first and second injection. She does continue with home stretching. She says that she would like to proceed with her third lumbar epidural steroid injection. Patient's pain is a 7 out of 10 today. Review of Systems General: No recent weight changes, no fever, no sleep disturbances Respiratory: No cough, no shortness of air, no recurring pulmonary infections Cardiovascular/peripheral vascular: No chest pain, no palpitations, no edema, no shortness of breath Gastrointestinal: No new onset incontinence, normal bowel movements reported Genitourinary: No new onset incontinence Musculoskeletal: Right low back pain with radiation into right hip Psychiatric: [Normal mood/affect] Neurological: [Denies weakness in extremities], [denies balance issues] Objective:: Physical exam General: Alert and oriented x3, no acute distress, pleasant and cooperative, [on room air] Lungs: Respirations even and unlabored, symmetrical chest expansion Eyes: PERRL Musculoskeletal: Flexion and extension of lumbar [spine] somewhat guarded secondary to pain, strength in upper and lower extremities [5/5], [antalgic gait noted] Neurological: Speech clear, [time recorder equal], no gross sensory deficit Assessment:: Degenerative disc disease lumbar spine with lumbar radiculopathy symptoms Plan:: We will schedule the patient for #3 lumbar epidural steroid injection at L5-S1. She is not on any anticoagulation therapy. We did discuss today if she does not get long-term relief with her injection she may be a spinal cord stimulator candidate. She was given educational information today regarding the procedure. We will follow up with the patient after her third injection for reevaluation of symptoms. She will continue with home stretching. Possible side effects of corticosteroids have been discussed with the patient. Risks and benefits of the procedure have been explained to the patient. Patient would like to proceed with the procedure. Patient has been instructed to contact the clinic with any concerns before the next appointment. Dr. Gillette has reviewed this note and agrees with this plan of care. This note was dictated using voice recognition software and make contain errors or omissions. [facility] History I have reviewed the patient's past medical history: Yes Medical History: Reports:: Anxiety, Chronic Obstructive Pulmonary Disease (COPD), Coronary Artery Disease, Depression, Diabetes Mellitus Type 2, Gastroesophageal Reflux Disease(GERD), Heart Murmur, Hyperlipidemia, Hypertension, Osteoporosis Denies:: Cancer, Diabetes Mellitus Type 1, Internal Pacemaker, MRSA, Seizures *Have you ever received a pneumonia vaccine?: Yes *Have you received a flu vaccine this season?: No Other Medical History: Reports: Anemia, Arthritis, Cataracts, Osteoporosis. Denies: Blood Transfusion Reaction Laterality Cases: Bilateral: Arthroscopy Shoulder Other Surgeries: Yes: Appendectomy, Cardiac Catheterization, Cholecystectomy, Colonoscopy, EGD, Hysterectomy-Total, Tubal Ligation, Other. No: Pacemaker Amputation: No Fractures: Yes (lt pinky finger) - *Social History Smoking Status: Current every day smoker Tobacco Type: cigarettes # Packs/Day (cigarettes): 1 #Yrs smoked (if former smoker): 4 Alcohol Int
== END ==
PROVIDERS: Visit Provider Clinical Nurse Specialist Family Health
DX: M51.16 Intervertebral disc disorders with radiculopathy, lumbar region (principal)
CPT/HCPCS: 99212; G0463

== ENCOUNTER → 2021-02-09 08:07 | Day surgery (SDC) | payer MEDICARE, OTHER, SELFPAY ==
[2021-02-09 08:20] VITALS: BP 165/99; PULSE 100; RESP 20; TEMP 36.6; O2SAT 96; BMI 30.7
[2021-02-09 09:11] VITALS: BP 172/85; PULSE 83; RESP 18; O2SAT 96
[2021-02-09 09:13] VITALS: BP 172/85; PULSE 84; RESP 18; O2SAT 96
[2021-02-09 09:21] VITALS: BP 176/88; PULSE 86; RESP 20; O2SAT 97
--- NOTE | 2021-02-09 09:24 | HMH.PMPROC ---
- Procedure Date: 02/09/21 Time: 09:24 Anesthesiologist:: Dom Gillette MD Complications:: None Pre-procedure Diagnosis:: Degenerative disc disease of lumbar spine with lumbar radiculopathy symptoms Post-procedure Diagnosis:: Same Indications for Procedure:: Patient is a pleasant 70-year-old white female who we are treating for low back pain with lumbar radiculopathy symptoms. She has increasing back pain radiating into her legs. She does well with these epidural steroid injections for several months. She has had 2 previous injections. Her pain is now starting to return. We will do repeat lumbar epidural steroid injection under fluoroscopy today. Procedure Details:: Informed consent was obtained and the risk and benefits of the procedure was explained to the patient. The patient was taken to the procedure room. The patient was placed prone on the procedure table. The patient was prepped and draped in sterile fashion. C-arm fluoroscopy was used to view the lumbar spine. Skin and subcutaneous tissues were anesthetized using lidocaine. I placed an 18-gauge epidural needle and advanced into the L4-L5 interspace using fluoroscopic guidance and [id number] to air. After confirmation of needle placement in the epidural space with dye I injected 2 mL of lidocaine 1.5% with Depo-Medrol 80 mg. Patient tolerated the procedure well with no complications. Plan and Disposition:: We will follow-up with her in 2 weeks. Will reevaluate symptoms at that time.
== END ==
PROVIDERS: PCP Family Medicine; Visit Provider Anesthesiology
DX: M51.16 Intervertebral disc disorders with radiculopathy, lumbar region (principal); E78.5 Hyperlipidemia, unspecified; I10 Essential (primary) hypertension; J44.9 Chronic obstructive pulmonary disease, unspecified; K21.9 Gastro-esophageal reflux disease without esophagitis; M19.90 Unspecified osteoarthritis, unspecified site; M81.0 Age-related osteoporosis without current pathological fracture; E11.9 Type 2 diabetes mellitus without complications; F32.9 Major depressive disorder, single episode, unspecified; F41.9 Anxiety disorder, unspecified; D64.9 Anemia, unspecified; Z72.0 Tobacco use
CPT/HCPCS: 62323; 62370; J1040; Q9966

== ENCOUNTER 2021-02-14 10:06 | Outpatient (CLI) | payer MEDICARE, OTHER, SELFPAY ==
[2021-02-14 10:25] VITALS: BP 122/84; PULSE 74; RESP 18; TEMP 36.2; O2SAT 97
== END 2021-02-14 10:45 | disposition home or self-care (01) ==
LOC: INF 10:07
PROVIDERS: PCP Family Medicine; Visit Provider Nurse Practitioner
DX: L50.9 Urticaria, unspecified (principal)
CPT/HCPCS: 96372; J2357

== ENCOUNTER 2021-03-19 10:02 | Outpatient (CLI) | payer MEDICARE, OTHER, SELFPAY ==
[2021-03-19 10:21] VITALS: BP 149/78; PULSE 79; RESP 18; TEMP 36.5; O2SAT 99
== END 2021-03-19 10:30 | disposition home or self-care (01) ==
LOC: INF 10:03
PROVIDERS: PCP Family Medicine; Visit Provider Nurse Practitioner
DX: L50.9 Urticaria, unspecified (principal)
CPT/HCPCS: 96372; 96401; J2357

== ENCOUNTER 2021-03-27 11:25 | Emergency (ER) | payer MEDICARE, OTHER, SELFPAY ==
--- NOTE | 2021-03-27 12:26 | XR_ITS ---
PROCEDURE: XR CHEST 2V CLINICAL HISTORY: whizzing COMPARISON: CR CXR CHEST(2 VIEWS-NOT PORTABLE) from 05/21/[address] chest w con from 11/17/[address] LUNG SCREENING from 07/10/2020 FINDINGS: The cardiomediastinal silhouette and pulmonary vascularity are within normal limits. There is a faint opacity in the left lower lung zone overlying the 5th and 6th rib region anteriorly suspicious for developing nodule. This measures approximately 11 mm. The remaining lungs are clear. No acute bony abnormalities. IMPRESSION: 11 mm nodular opacity overlies the left lower lobe region suspicious for developing lung nodule. Follow-up suggested. Chest CT without contrast may provide further evaluation Dictated by: Herman Charles MD 03/27/2021 13:57 Herman Charles MD in [place] 03/27/2021 13:57
[2021-03-27 12:30] VITALS: BP 164/92; PULSE 76; RESP 18; TEMP 36.9; O2SAT 95; BMI 30.6
--- NOTE | 2021-03-27 12:33 | HMH.EDUTC ---
[facility] [place] Disposition Clinical Impression: COPD exacerbation, Lung nodule Disposition: Home, Self-Care Condition on Discharge: Good Instructions: DI for Chronic Obstructive Pulmonary Disease, Preventing the Spread of Coronavirus Discharge Instructions Additional Instructions: Drink plenty of fluids. Take tylenol or ibuprofen for pain or fever. Take the medications as directed. Follow up with your regular doctor. GO TO THE ER FOR ANY WORSENING SYMPTOMS Stop the steroids that you are on that were prescribed by your primary care physician. Start the steroids and medications that were here today. Continue all the other medications that are prescribed by your primary care physician. Follow up with your primary care physician regarding the possible lung nodule that was noted on the chest x-ray. Prescriptions: Amoxicillin/Potassium Clav [Augmentin 500mg tab] 500 mg PO TID #30 tab Transmission Status: Received by [facility] Benzonatate [Benzonatate 100mg cap] 100 mg PO TIDP PRN #30 cap PRN Reason: Cough Transmission Status: Received by [facility] predniSONE [Deltasone 10mg tablet] 10 mg PO DAILY 9 Days #21 tab Transmission Status: Received by [facility] Referrals: Jorden Roberts [Primary Care Provider] - Time of Disposition: 13:05 Medical Decision Making - Medical Records Medical records reviewed: No: I reviewed the patient's medical records. - Daniel Inquiry Pt receiving controlled substance: No Vital Signs: 03/27/21 12:30 03/27/21 13:37 Temperature 98.5 F 98.5 F Temperature Source Oral Pulse Rate 76 Pulse Rate [Left] 76 Respiratory Rate 18 18 Blood Pressure 164/92 H Blood Pressure [Right Arm] 164/92 H Blood Pressure Mean [Right Arm] 116 02 Sat by Pulse Oximetry 95 Orders (Tests/Meds): ORDERS Category Date Time Status Covid-19 Nasal PCR ([facility]) Routine Lab 03/27/21 12:57 Ordered - Radiology Data #1 Image(s): Chest Image Reviewed: Yes I reviewed the patient's radiology image, Yes I have reviewed radiologist's interpretation Preliminary Findings: Abnormal, No Infiltrates Seen PROCEDURE: XR CHEST 2V CLINICAL HISTORY: whizzing COMPARISON: CR CXR CHEST(2 VIEWS-NOT PORTABLE) from 05/21/[address] chest w con from 11/17/[address] LUNG SCREENING from 07/10/2020 FINDINGS: The cardiomediastinal silhouette and pulmonary vascularity are within normal limits. There is a faint opacity in the left lower lung zone overlying the 5th and 6th rib region anteriorly suspicious for developing nodule. This measures approximately 11 mm. The remaining lungs are clear. No acute bony abnormalities. IMPRESSION: 11 mm nodular opacity overlies the left lower lobe region suspicious for developing lung nodule. Follow-up suggested. Chest CT without contrast may provide further evaluation Dictated by: Herman Charles MD 03/27/2021 13:57 Herman Charles MD in [place] 03/27/2021 13:57 [facility] [place] HPI - General Stated complaint: cough, congestion Time Seen by Provider: 03/27/21 12:33 - History of Present Illness Provider Complaint: She states that for the past 10 days or so, she has had a worsening cough and chest congestion. She denies any fever or chills. She has a history of copd. She is currently on oral steroids that were prescribed by her pcp. - Related Data Home Medications Medication Instructions Recorded Confirmed Umeclidinium [place] [Incruse 1 puff IH DAILY 06/03/17 02/14/21 Ellipta] dilTIAZem HCL [Dilt-Xr] 240 mg PO DAILY 06/03/17 02/14/21 cetirizine 10 mg capsule 10 mg PO QDAY cap 06/11/17 02/14/21 hydroxyzine HCl 25 mg tablet 12.5 mg PO TID tab 06/11/17 02/14/21 Atorvastatin Calcium [Lipitor 40mg 40 mg PO HS 06/22/18 02/14/21 Tablet] Fluoxetine HCl 20 mg PO DAILY 06/22/18 02/14/21 Fluticasone/Salmeterol [Advair 1 inh IH BID 06/22/18 02/14/21 250/50mcg Diskus] Furosemide [L
[2021-03-27 13:37] VITALS: BP 164/92; PULSE 76; RESP 18; TEMP 36.9
--- NOTE | 2021-03-28 15:00 | PC.NURSE ---
ATTEMPTED TO CALL PATIENT TO OBTAIN INFORMATION ABOUT COVID TEST FROM YESTERDAY AND IF THE TEST WAS OBTAINED WITH NO ANSWER
== END 2021-03-27 13:37 | disposition home or self-care (01) ==
PROVIDERS: Emergency Provider Nurse Practitioner Family; PCP Internal Medicine
DX: J44.1 Chronic obstructive pulmonary disease with (acute) exacerbation (principal); I25.10 Atherosclerotic heart disease of native coronary artery without angina pectoris; E11.9 Type 2 diabetes mellitus without complications; K21.9 Gastro-esophageal reflux disease without esophagitis; E78.5 Hyperlipidemia, unspecified; I10 Essential (primary) hypertension; Z79.899 Other long term (current) drug therapy
CPT/HCPCS: G0463; 71046; 99202

== ENCOUNTER → 2021-04-12 07:47 | Outpatient (CLI) | payer MEDICARE, OTHER, SELFPAY ==
--- NOTE | 2021-04-12 07:59 | CT_ITS ---
PROCEDURE: CT CHEST WO CON CLINICAL INDICATION: F/U LUNG NODULE COMPARISON: CT CHESTW CT chest w con from 11/17/[address] abdomen pelvis wo con from 06/22/[address] LUNG SCREENING from 07/10/2020 CR XR CHEST 2V from 03/27/2021 TECHNIQUE: Axial images obtained with sagittal and coronal reformats. All CT scans at the facility use one or more dose reduction, viz: automated exposure control, ma/kV adjustment per patient size (including targeted exams where dose is matched to indication, i.e. head), or iterative reconstruction technique. FINDINGS: HEART AND MEDIASTINAL STRUCTURES: No mediastinal or hilar mass or adenopathy. Coronary artery calcifications are present. Small hiatal hernia. LUNGS AND PLEURAL SPACES: COPD changes with scattered areas of scarring 6 mm fissural nodule right minor fissure unchanged benign-appearing. Linear densities in the lung bases consistent with areas of scarring and or atelectatic change. Minimal bronchiectasis in the right upper lobe in the perihilar region. There is a 9 mm nodule in the left lower lobe laterally corresponding to the radiographic abnormality. Previously there was a faint opacity in this region barely perceptible at approximately 2-3 mm. This nodule is noncalcified. BONY STRUCTURES: No acute bony abnormalities apparent. UPPER ABDOMEN: Hypodense area in the left kidney at 9 mm and may represent a renal cyst. ADDITIONAL FINDINGS: No other significant abnormalities. IMPRESSION: 9 mm solid noncalcified nodule in the left lower lobe corresponding to the radiographic abnormality suspicious for neoplasm. No mediastinal or hilar adenopathy. PET CT may provide further evaluation. The nodule is felt to be too small to biopsy at this institution by CT technique. Consider pulmonology consult for further evaluation. Dictated by: Herman Charles MD 04/12/2021 14:34 Herman Charles MD in [place] 04/12/2021 14:34
== END ==
PROVIDERS: PCP Internal Medicine; Visit Provider Internal Medicine
DX: R91.1 Solitary pulmonary nodule (principal)
CPT/HCPCS: 71250

== ENCOUNTER 2021-04-16 09:42 | Outpatient (CLI) | payer MEDICARE, OTHER, SELFPAY ==
[2021-04-16 10:28] VITALS: BP 132/77; PULSE 78; RESP 18; TEMP 36.4; O2SAT 94
== END 2021-04-16 10:46 | disposition home or self-care (01) ==
LOC: INF 09:44
PROVIDERS: PCP Internal Medicine; Visit Provider Allergy & Immunology
DX: L50.9 Urticaria, unspecified (principal)
CPT/HCPCS: 96372; J2357

== ENCOUNTER → 2021-05-15 11:36 | Outpatient (CLI) | payer MEDICARE, OTHER, SELFPAY ==
[2021-05-15 12:27] LABS: Basophils # 0.1 K/mm3 (0-0.2); Basophils % 0.9 % (0.1-2.0); Eosinophils # 0.2 K/mm3 (0.0-0.4); Eosinophils % 2.1 % (0.1-12.0); Hematocrit 44.1 % (37.0-47.0); Hemoglobin 13.6 g/dL (12.2-16.2); Lymphocytes # 2.3 K/mm3 (0.7-4.5); Lymphocytes % 21.1 % (10-50); Mean Corpuscular HGB Conc 30.9 g/dL (31.8-35.4); Mean Corpuscular Hemoglobin 29.3 pg (27.0-31.2); Mean Platelet Volume 8.7 fl (7.4-10.4); Monocytes # 0.9 K/mm3 (0.1-1.0); Monocytes % 7.9 % (1.7-9.3); Neutrophils # 7.5 K/mm3 (1.8-7.8); Platelet Count 404 K/mm3 (142-424); Red Blood Count 4.65 M/mm3 (4.20-5.40); Red Cell Distribution Width 14.4 % (11.5-17.5)
[2021-05-15 12:52] LABS: Alanine Aminotransferase 18 U/L (12-78); Albumin Level 3.9 g/dl (3.5-5.0); Albumin/Globulin Ratio 1.8 (1.1-1.8); Alkaline Phosphatase 91 U/L (38-126); Anion Gap 13.2 mEq/L (5-15); Aspartate Amino Transferase 21 U/L (14-36); Bilirubin,Total 0.7 mg/dl (0.2-1.3); Blood Urea Nitrogen 19 mg/dl (7-17); Calcium 9.9 mg/dl (8.4-10.2); Carbon Dioxide 28 mmol/L (22.0-30.0); Chloride 100 mmol/L (98-107); Chol/HDL Ratio 3.7 (1-3.5); Cholesterol 161 mg/dl (140-200); Estimated Glomerular Filt Rate 32 ml/min (>60); GFR (African American) 39 ML/MIN (>60); Globulin 2.2 g/dL (1.3-3.2); Glucose 264 mg/dl (74-100); HDL Cholesterol 43 mg/dl (40-60); Potassium 5.2 mmoL/L (3.5-5.1); Sodium 136 mmol/L (136-145); Total Protein,Serum 6.1 g/dl (6.3-8.2); Triglycerides 281 mg/dl (30-150); VLDL Cholesterol 56 mg/dL (0-40)
[2021-05-15 13:02] LABS: Direct LDL Cholesterol 81.07 mg/dL (100-129)
[2021-05-15 13:22] LABS: Thyroid Stimulating Hormone 2.03 uIU/mL (0.465-4.68)
[2021-05-15 14:43] LABS: Hemoglobin A1C 8.6 % (4.0-6.0)
== END ==
PROVIDERS: Visit Provider Internal Medicine
DX: E11.9 Type 2 diabetes mellitus without complications (principal); E78.5 Hyperlipidemia, unspecified; R53.83 Other fatigue; F17.200 Nicotine dependence, unspecified, uncomplicated; Z79.84 Long term (current) use of oral hypoglycemic drugs; E87.5 Hyperkalemia
CPT/HCPCS: 36415; 80053; 80061; 83036; 84443; 85025

== ENCOUNTER 2021-06-15 13:01 | Emergency (ER) | payer MEDICARE, OTHER, SELFPAY ==
[2021-06-15 13:02] VITALS: BP 165/89; PULSE 89; RESP 20; TEMP 36.3; O2SAT 96; BMI 29.2
--- NOTE | 2021-06-15 13:24 | XR_ITS ---
FINAL REPORT CLINICAL HISTORY: low back pain FINDINGS: LUMBAR SPINE Three views of the lumbar spine were obtained. There is no acute fracture or subluxation. Mild degenerative change with osteophytes are present. Dextroscoliosis is noted. There is vascular calcification. Postoperative changes are seen in the right abdomen. IMPRESSION: Mild degenerative changes. Reviewed, Interpreted and Dictated by Solo Skinner III, MD Transcribed by Susan Kramer Authenticated by Solo Skinner III, MD on 06/15/2021 02:32:39 PM [facility]
--- NOTE | 2021-06-15 13:25 | HMH.EDGENADL ---
ED Disposition Clinical Impression: Low back pain Qualifiers: Chronicity: acute Back pain laterality: midline Sciatica presence: without sciatica Qualified Code(s): M54.50 - Low back pain, unspecified Disposition: Home, Self-Care Condition on Discharge: Good Instructions: DI for Low Back Pain Additional Instructions: Tramadol as prescribed. Follow-up with primary care provider or with Dr. Gillette in his office, call for appointment. Additional instructions for BACK PAIN: See your physician as soon as possible for further evaluation. Return immediately if back pain becomes intolerable, or if fever, numbness or weakness of your legs, loss of control of your bowels or bladder. Additional instructions for CONTROLLED SUBSTANCES: You have been prescribed a medication that is a controlled substance. Controlled substances include pain medications known as opiates and sedative nerve medications known as benzodiazepines. Tramadol, fioricet, and gabapentin are also controlled substances. Some common opiates include: Codeine (such as Tylenol #3) Hydrocodone (Vicodin, Lortab, Lorcet, [place]) Oxycodone (Percocet, Percodan, Oxycodone, Oxy IR) Some common benzodiazepines include: Diazepam (Valium) Lorazepam (Ativan) Alprazolam (Xanax) Clonazepam (Klonopin) Oxazepam (Serax) All of these controlled substances are highly addictive and frequently abused. Misuse can and frequently does lead to addiction as well as overdose and . Medication should be stored in a locked cabinet or other secure storage unit. Do not store the medication in a motor vehicle. Short term supplies, 3 days or less, are prescribed because of the highly addictive nature of the medication. Any of the controlled substance medication NOT taken should be disposed of properly and NOT SAVED. The recommended method of disposing of unused medications is: Place the medicines in a sealable plastic bag. If the medicine is a solid, crush it or add water to dissolve it. Add something undesirable (cat litter, coffee grounds, etc.) Dispose of sealed bag in household trash Do not flush or pour unused medicines down a sink or drain. Controlled substances should not be shared, given away or sold. Because of the addictive nature and frequent abuse, these medications are sometimes stolen. These medications should be kept in a safe place where they cannot be stolen. Do not keep them in your car or purse. Lost or stolen prescriptions for controlled substances WILL NOT BE REFILLED in this emergency department, regardless of whether a police report was filed. Prescriptions: Tramadol HCl [Tramadol 50mg Tab] 50 mg PO Q6HP PRN #10 tab PRN Reason: Moderate Pain Transmission Status: Sent to [facility] Referrals: Jorden Roberts [Primary Care Provider] - - Critical Care Critical Care Time: No Attestation: On 06/15/21, the high probability of a clinically significant, sudden or life threatening deterioration of the following system(s) required my full and direct attention, intervention and personal management. The time I documented below is in addition to time spent performing reported procedures but includes the following listed in this critical care notation. Medical Decision Making - Medical Records Medical records reviewed: Yes: I reviewed the patient's medical records. MR Comment: Reviewed previous lumbar MRI result June 2018. Reviewed most recent pain clinic note 02/09/2021, received epidural injection. - Daniel Inquiry Pt receiving controlled substance: Yes Daniel was queried for this patient: Yes Risks and benefits of using a controlled substance: were discussed with pt by me Vital Signs: 06/15/21 13:02 Temperature 97.4 F L Temperature Source Oral Pulse Rate [Left Radial] 89 Respiratory Rate 20 Blood Pressure [Right Arm] 165/89 H Blood Pressure Mean [Right Arm] 114 Blood Pressure Source [Right Arm] Automatic Cuff
[2021-06-15 13:33] LABS: Microscopic, Urine URINE MICROSCOPIC (MICROSCOPIC)
[2021-06-15 13:37] LABS: Appearance,Urine CLEAR (Clear); Bilirubin,Urine Negative (Negative); Blood, Urine Negative (Negative); Color,Urine YELLOW (Yellow); Glucose,Urine (UA) 3+ (Negative); Ketones,Urine Negative (Negative); Leukocyte Esterase,Urine Negative (Negative); Nitrate,Urine Negative (Negative); Protein,Urine Negative (Negative); Urobilinogen,Urine 0.2 EU/dl (0.2)
[2021-06-15 13:52] LABS: Bacteria,Urine 1+ /lpf
[2021-06-15 14:20] VITALS: BP 140/82; PULSE 79; RESP 18; TEMP 36.3; O2SAT 94
== END 2021-06-15 14:21 | disposition home or self-care (01) ==
PROVIDERS: Emergency Provider Emergency Medicine; PCP Internal Medicine
DX: M54.9 Dorsalgia, unspecified (principal); F41.9 Anxiety disorder, unspecified; J44.9 Chronic obstructive pulmonary disease, unspecified; I25.10 Atherosclerotic heart disease of native coronary artery without angina pectoris; F32.A Depression, unspecified; E11.9 Type 2 diabetes mellitus without complications; K21.9 Gastro-esophageal reflux disease without esophagitis; E78.5 Hyperlipidemia, unspecified; I10 Essential (primary) hypertension; M81.0 Age-related osteoporosis without current pathological fracture
CPT/HCPCS: 72100; 81001; 99282

== ENCOUNTER → 2021-06-21 11:36 | Outpatient (CLI) | payer MEDICARE, OTHER, SELFPAY ==
[2021-06-22 08:59] LABS: Covid-19 Nasal PCR Sendout Lex NOT DETECTED
== END ==
PROVIDERS: Visit Provider Nurse Practitioner
DX: Z20.822 Contact with and (suspected) exposure to COVID-19 (principal)
CPT/HCPCS: C9803; U0004; U0005

== ENCOUNTER 2021-07-04 09:34 | Outpatient (CLI) | payer MEDICARE, OTHER, SELFPAY ==
[2021-07-04 10:09] VITALS: BP 127/66; PULSE 86; RESP 18; TEMP 36.4; O2SAT 96
== END 2021-07-04 10:20 | disposition home or self-care (01) ==
LOC: INF 09:35
PROVIDERS: PCP Internal Medicine; Visit Provider Nurse Practitioner
DX: L50.9 Urticaria, unspecified (principal)
CPT/HCPCS: 96372; J2357

== ENCOUNTER → 2021-07-07 10:31 | Outpatient (CLI) | payer MEDICARE, OTHER, SELFPAY | PROVIDERS: Visit Provider Nurse Practitioner | DX: Z20.822 Contact with and (suspected) exposure to COVID-19 (principal) | CPT/HCPCS: C9803; U0003; U0005 ==

== ENCOUNTER 2021-07-09 10:02 | Day surgery (SDC) | payer MEDICARE, OTHER, SELFPAY ==
[2021-07-06 13:14] VITALS: BMI 29.1
[2021-07-09] VITALS (12 sets, daily range): BP systolic 138–157; BP diastolic 68–97; PULSE 59–72; RESP 16–18; TEMP 36.2–38; O2SAT 91–95
--- NOTE | 2021-07-09 13:01 | HMH.ANESCL ---
[facility] Anesthesia Checklist - Patient Identification Patient Identification: Arm Band, Verbal (Name & ) - Structural Data Admitted From: Home Planned Operative Procedure/s: Bronchoscopy/EBUS Consent for Planned Operative Procedure(s) Verified: Yes Verified Documents: Surgical Consent - NPO Status Verified Time NPO: 00:00 - Additional verifications Anesthesia Reactions: No Hx Blood Transfusions: No Blood Transfusion Reaction: No - Airway Assessment C-Spine Mobility Assessed: Yes TMJ Mobility Assessed: Yes Dentition: Edentulous - Neurological Assessment Level of Consciousness: Awake, Alert, Appropriate - Anesthesia Plan Anesthesia Type: General [facility] History Medical History: Reports:: Anxiety, Chronic Obstructive Pulmonary Disease (COPD), Coronary Artery Disease, Depression, Diabetes Mellitus Type 2, Gastroesophageal Reflux Disease(GERD), Heart Murmur, Hyperlipidemia, Hypertension, Osteoporosis Denies:: Cancer, Diabetes Mellitus Type 1, Internal Pacemaker, MRSA, Seizures *Have you ever received a pneumonia vaccine?: Yes *Have you received a flu vaccine this season?: Yes Other Medical History: Reports: Anemia, Arthritis, Cataracts, Osteoporosis. Denies: Blood Transfusion Reaction Anesthesia experience/problems:: none Laterality Cases: Bilateral: Arthroscopy Shoulder, Cataract Other Surgeries: Yes: Appendectomy, Cardiac Catheterization, Cholecystectomy, Colonoscopy, EGD, Hysterectomy-Total, Tubal Ligation. No: Pacemaker. Comment Only: Other (MILD) Amputation: No Fractures: Yes (lt pinky finger) - *Social History Last grade of school completed: High school graduate Smoking Status: Former smoker Tobacco Type: cigarettes # Packs/Day (cigarettes): 1 #Yrs smoked (if former smoker): 4 Smoking End Date: 07/05/21 Alcohol Intake: never Alcohol Intake Frequency:: other Substance Use Type: denies use *Occupational Status:: disabled Housing: house Household Members: friend(s) *Travel in the last 8 weeks: None - Psychiatric History Pschychiatric History:: Reports:: Anxiety, Depression Family Hx:: Coronary Artery Disease
--- NOTE | 2021-07-09 14:26 | HMH.ANESI ---
[facility] Anesthesia Record Part I Intake, IV Amount: 1,000 Estimated blood loss (mL): 10 Urine output (mL): 0 Blood Pressure: 140/97 SaO2: 92 Pulse Rate: 72 Respiratory Rate: 18 Temperature: 97.1 F Patient is:: Awake, Drowsy Stable to PACU at:: 14:23
--- NOTE | 2021-07-09 14:30 | HMH.BRONCH ---
- Procedure: Date: 07/09/21 Patient Date of :: 1950 Procedure Performed:: Bronchoscopy airway examination, bronchoalveolar lavage and EBUS FNA Indications:: Lung Nodule and lymphadenopathy Performing Provider:: Tracey Vences MD Referring Provider:: Dr. Roberts Sedation:: General anesthesia Procedure:: Bronchoscopy airway examination, bronchoalveolar lavage and EBUS FNA Clean EBUS bronchoscopy was advanced the ET tube and lymph node surveillance were performed, patient noted to have lymphadenopathy stations 4L, 7 and 10 L. Fine-needle aspiration performed in each of the lymph nodes with 5 passes each and was sent for cytopathological examination. Pathologist at the bedside reviewed the slides confirmed the presence of poorly differentiated malignant cells favoring more toward small cell lung cancer however did not confirm the diagnosis. Will wait for the final result. EBUS Bronchoscopy was retracted and regular therapeutic bronchoscopy was advanced and airways were examined up to subsegmental bronchi. Airways appeared normal with no evidence of endobronchial lesions. No mucous plugging or hemoptysis noted. Bronchoalveolar lavage was performed the left lobe with a total of instillation of 60 cc with a return of 35 cc back. BAL fluid were sent for cell count differential, bacterial fungal AFB stain and culture along with cytopathology. Patient tolerated the procedure well. We will follow the patient in pulmonary clinic in 5 days and will also schedule an oncology appointment. Please schedule appointments prior to patient's discharge. Findings:: Please see the procedure note Recommendations:: Please see the procedure note Complications:: None Estimated blood obtained (mL): 5
--- NOTE | 2021-07-09 16:31 | P.PN_ITS ---
[facility] Anesthesia Record Part II Discharge Time: 14:53 Destination: Surgical Day Care (OP Surgery) PACU nurse assessment reviewed?: Yes Patient Condition:: Good Anesthesia Complications:: None Swallowing reflex intact?: Yes Cyanosis?: No Blood Pressure: 156/72 Pulse Rate: 59 Temperature: 97.2 F Mental Status: Alert & Oriented Pain level:: 0 Nausea and/or vomitting:: None Intake, IV Amount: 0
[2021-07-17 10:20] LABS: Cell Count + Differential, BAL SEE COMMENT.
[2022-02-07 10:57] LABS: POC Glucose,Bedside 133 (70-110)
== END 2021-07-09 15:28 | disposition home or self-care (01) ==
LOC: OR 10:03
PROVIDERS: PCP Internal Medicine; Visit Provider Internal Medicine Pulmonary Disease
DX: R59.0 Localized enlarged lymph nodes (principal); R91.1 Solitary pulmonary nodule; I25.10 Atherosclerotic heart disease of native coronary artery without angina pectoris; E11.9 Type 2 diabetes mellitus without complications; Z79.84 Long term (current) use of oral hypoglycemic drugs; Z79.899 Other long term (current) drug therapy; J44.9 Chronic obstructive pulmonary disease, unspecified; F17.210 Nicotine dependence, cigarettes, uncomplicated; C77.1 Secondary and unspecified malignant neoplasm of intrathoracic lymph nodes
CPT/HCPCS: 31624; 31653; 82962; 87070; 87102; 87116; 87186; 87205; 87206; 88112; 88172; 88173; 88305; 88342; 89051

== ENCOUNTER → 2021-07-11 16:24 | Outpatient (CLI) | payer MEDICARE, OTHER, SELFPAY ==
[2021-07-11 17:34] LABS: Albumin Level 4.3 g/dl (3.5-5.0); Albumin/Globulin Ratio 2.3 (1.1-1.8); Alkaline Phosphatase 215 U/L (38-126); Anion Gap 13.4 mEq/L (5-15); Bilirubin,Total 0.4 mg/dl (0.2-1.3); Blood Urea Nitrogen 14 mg/dl (7-17); Calcium 8.8 mg/dl (8.4-10.2); Carbon Dioxide 26 mmol/L (22.0-30.0); Chloride 103 mmol/L (98-107); Estimated Glomerular Filt Rate 55 ml/min (>60); GFR (African American) 66 ML/MIN (>60); Globulin 1.9 g/dL (1.3-3.2); Glucose 172 mg/dl (74-100); Phosphorous 4.1 mg/dl (2.5-4.5); Potassium 4.4 mmoL/L (3.5-5.1); Sodium 138 mmol/L (136-145); Total Protein,Serum 6.2 g/dl (6.3-8.2); Uric Acid 6.1 mg/dl (2.5-6.2)
[2021-07-11 17:35] LABS: Alanine Aminotransferase 195 U/L (12-78); Aspartate Amino Transferase 205 U/L (14-36)
== END ==
PROVIDERS: Visit Provider Internal Medicine Pulmonary Disease
DX: C34.90 Malignant neoplasm of unspecified part of unspecified bronchus or lung (principal)
CPT/HCPCS: 80053; 84100; 84550

== ENCOUNTER → 2021-07-18 10:57 | Outpatient (CLI) | payer MEDICARE, OTHER, SELFPAY ==
--- NOTE | 2021-07-18 10:58 | MR_ITS ---
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 There is mild age-appropriate atrophy. Scattered foci of increased T2 signal are seen in the cerebral white matter that have a nonspecific appearance but likely represent moderate chronic ischemic/gliotic changes. There is no evidence of intracranial hemorrhage or mass. No abnormal ventricular dilatation is identified. There is no evidence of shift of the midline structures. No abnormal extra-axial fluid collection is seen. No area of abnormal restricted diffusion is identified. The posterior fossa and brainstem have an unremarkable appearance. No abnormal contrast enhancement is seen. Normal major vessel vascular flow voids are seen. There is a retention cyst or polyp in the right maxillary sinus. IMPRESSION: Atrophy and moderate chronic ischemic/gliotic changes. No acute intracranial abnormality. Reviewed, Interpreted and Dictated by Solo Skinner III, MD Transcribed by Susan Kramer Authenticated by Solo Skinner III, MD on 07/18/2021 01:18:50 PM [facility]
== END ==
PROVIDERS: PCP Internal Medicine; Visit Provider Internal Medicine Pulmonary Disease
DX: C34.90 Malignant neoplasm of unspecified part of unspecified bronchus or lung (principal)
CPT/HCPCS: 70553; A9576

== ENCOUNTER → 2021-07-23 17:43 | Outpatient (CLI) | payer MEDICARE, OTHER, SELFPAY ==
[2021-07-23 20:46] LABS: Basophils # 0.1 K/mm3 (0-0.2); Basophils % 0.8 % (0.1-2.0); Eosinophils % 0.3 % (0.1-12.0); Hematocrit 45.2 % (37.0-47.0); Hemoglobin 13.9 g/dL (12.2-16.2); Lymphocytes # 0.9 K/mm3 (0.7-4.5); Lymphocytes % 11.2 % (10-50); Mean Corpuscular HGB Conc 30.9 g/dL (31.8-35.4); Mean Corpuscular Hemoglobin 28.6 pg (27.0-31.2); Mean Corpuscular Volume 92.8 fl (81-99); Mean Platelet Volume 10.7 fl (7.4-10.4); Monocytes # 0.6 K/mm3 (0.1-1.0); Monocytes % 7.1 % (1.7-9.3); Neutrophils # 6.7 K/mm3 (1.8-7.8); Neutrophils % 80.6 % (37.0-80.0); Platelet Count 374 K/mm3 (142-424); Red Blood Count 4.87 M/mm3 (4.20-5.40); Red Cell Distribution Width 14.9 % (11.5-17.5); White Blood Count 8.3 K/mm3 (4.8-10.8)
[2021-07-23 21:19] LABS: Alanine Aminotransferase 120 U/L (12-78); Albumin/Globulin Ratio 1.7 (1.1-1.8); Alkaline Phosphatase 460 U/L (38-126); Amylase 35 U/L (30-110); Anion Gap 14.7 mEq/L (5-15); Aspartate Amino Transferase 293 U/L (14-36); Bilirubin,Total 2.2 mg/dl (0.2-1.3); Blood Urea Nitrogen 12 mg/dl (7-17); Calcium 9.7 mg/dl (8.4-10.2); Carbon Dioxide 24 mmol/L (22.0-30.0); Chloride 105 mmol/L (98-107); Estimated Glomerular Filt Rate 34 ml/min (>60); GFR (African American) 42 ML/MIN (>60); Globulin 2.3 g/dL (1.3-3.2); Glucose 137 mg/dl (74-100); Potassium 4.7 mmoL/L (3.5-5.1); Sodium 139 mmol/L (136-145); Total Protein,Serum 6.3 g/dl (6.3-8.2)
== END ==
PROVIDERS: Visit Provider Internal Medicine
DX: R10.11 Right upper quadrant pain (principal); C34.32 Malignant neoplasm of lower lobe, left bronchus or lung
CPT/HCPCS: 80053; 82150; 85025

== ENCOUNTER 2021-09-20 13:45 | Outpatient (CLI) | payer MEDICARE, OTHER, SELFPAY ==
[2021-09-20 13:55] VITALS: BP 119/49; PULSE 89; RESP 20; TEMP 36.9; O2SAT 95
== END 2021-09-20 14:10 | disposition home or self-care (01) ==
LOC: INF 13:46
PROVIDERS: PCP Internal Medicine; Visit Provider Nurse Practitioner
DX: L50.9 Urticaria, unspecified (principal)
CPT/HCPCS: 96372; J2357

== ENCOUNTER 2021-09-26 12:21 | Inpatient (IN) | payer MEDICARE, OTHER, SELFPAY ==
[2021-09-26] VITALS (9 sets, daily range): BP systolic 92–137; BP diastolic 52–86; PULSE 94–121; RESP 16–20; TEMP 37.2–38.4; O2SAT 95–97; BMI 25.0; BMI 24.0
--- NOTE | 2021-09-26 12:27 | HMH.EDGENADL ---
ED Disposition Clinical Impression: Neutropenia with fever Disposition: Admitted As Inpatient Condition on Discharge: Fair - Critical Care Critical Care Time: No Attestation: On , the high probability of a clinically significant, sudden or life threatening deterioration of the following system(s) required my full and direct attention, intervention and personal management. The time I documented below is in addition to time spent performing reported procedures but includes the following listed in this critical care notation. Medical Decision Making - Medical Records Medical records reviewed: Yes: I reviewed the patient's medical records. - Daniel Inquiry Pt receiving controlled substance: No Vital Signs: 09/26/21 12:49 09/26/21 13:30 Temperature 99.7 F H Temperature Source Oral Pulse Rate 107 H Pulse Rate [Left Radial] 121 H Respiratory Rate 17 18 Blood Pressure 92/57 L Blood Pressure [Right Arm] 114/64 Blood Pressure Mean [Right Arm] 80 02 Sat by Pulse Oximetry 97 96 Oxygen Delivery Method Room Air - Lab Data Lab results reviewed: Yes: I reviewed the patient's lab results. Lab Results 09/26/21 12:33: WBC 1.5 L*, RBC 2.70 L, Hgb 7.9 L, Hct 23.3 L, MCV 86.5, MCH 29.4, MCHC 34.0, RDW 19.8 H, Plt Count 186, MPV 9.2, Neut % (Auto) 9.8 L, Lymph % (Auto) 55.0 H, [place] % (Auto) 31.9 H, Eos % (Auto) 2.9, Baso % (Auto) 0.4, Neut # (Auto) 0.2 L*, Lymph # (Auto) 0.8, [place] # (Auto) 0.5, Eos # (Auto) 0.0, Baso # (Auto) 0.0, Total Counted 50, Neutrophils % (Manual) 18 L, Lymphocytes % (Manual) 28, Atypical Lymphs % 4.0, Monocytes % (Manual) 36 H, Myelocytes % 4 H, Blast Cells % 10.0, Differential Comment , Platelet Estimate Normal, Anisocytosis 1+, Microcytosis 1+, Macrocytosis 1+, Ovalocytes 1+ 09/26/21 12:33: Sodium 129 L, Potassium 3.8, Chloride 95 L, Carbon Dioxide 24, Anion Gap 13.8, BUN 16, Creatinine 1.00, Estimated Creat Clear 56, Estimated GFR 55 L, Est GFR ( Amer) 66, Glucose 219 H, Calcium 9.2, Total Bilirubin 0.9, AST 36, ALT 50, Alkaline Phosphatase 233 H, Total Protein 6.5, Albumin 3.7, Globulin 2.8, Albumin/Globulin Ratio 1.3 09/26/21 12:33: Troponin I < 0.01 09/26/21 12:33: Magnesium 1.4 L 09/26/21 12:59: Urine Color Yellow, Urine Appearance Clear, Urine pH 5.5, Ur Specific [place] <= 1.005, Urine Protein Negative, Urine Glucose (UA) 3+, Urine Ketones Negative, Urine Blood Negative, Urine Nitrate Negative, Urine Bilirubin Negative, Urine Urobilinogen 0.2, Ur Leukocyte Esterase Negative, Urine RBC None, Urine WBC None, Ur Squamous Epith Cells 3-5, Urine Bacteria Trace Result diagrams: 09/26/21 12:33 09/26/21 12:33 Orders (Tests/Meds): ED MEDICATIONS Discontinued Medications Generic Name Dose Route Start Last Admin Trade Name Darrian PRN Reason Stop Dose Admin Lactated Ringer's 1,000 mls @ 999 mls/hr 09/26/21 13:00 09/26/21 13:07 Lactated Ringer's 1000 Ml Bag IV 09/26/21 14:00 999 mls/hr .Q1H1M BRISA Administration Iopamidol 70 ml 09/26/21 14:01 09/26/21 14:02 Iopamidol-370 (76%);100ml Bottle IV 09/26/21 14:02 70 ml ONCE ONE Administration Sodium Chloride 50 ml 09/26/21 14:01 09/26/21 14:02 0.9 % Sodium Chloride 50 Ml Vial IV 09/26/21 14:02 50 ml ONCE ONE Administration Sodium Chloride 10 ml 09/26/21 14:01 09/26/21 14:02 Sodium Chloride 0.9% 10ml Syr (Rad Only) IV 09/26/21 14:02 10 ml ONCE ONE Administration ORDERS Category Date Time Status Troponin I Q3H Lab 09/26/21 16:00 Ordered Troponin I Q3H Lab 09/26/21 19:00 Ordered EKG Request [ECG Request by /Nse] Stat Y 09/26/21 12:59 Ordered Medical Decision Narrative: Richelle is a 70-year-old female presenting with a chief complaint of malaise, tachycardia and elevated temperature. Differential diagnosis includes, but is not limited to, neutropenia, neutropenic fever, infection, electrolyte abnormality, dehydration, ACS, DVT/PE, other. Initial exam, patient is normotensive but tach
--- NOTE | 2021-09-26 12:55 | XR_ITS ---
FINAL REPORT CLINICAL HISTORY: weakness COMPARISON: March 27, 2021 FINDINGS: The heart size is normal. The mediastinum is normal. There is no focal infiltrate or edema. There are no pleural effusions. There is no pneumothorax. There is no osseous abnormality. IMPRESSION: No acute cardiopulmonary process Reviewed, Interpreted and Dictated by Solo Skinner III, MD Transcribed by Denzel Medellin Authenticated by Solo Skinner III, MD on 09/26/2021 01:49:07 PM [facility]
--- NOTE | 2021-09-26 12:58 | CT_ITS ---
FINAL REPORT TECHNIQUE: Then section axial CT images of the chest were obtained with contrast. Three-D reformatted images were also obtained.This study was performed with techniques to keep radiation doses as low as reasonably achievable (ALARA). Individualized dose reduction techniques using automated exposure control or adjustment of mA and/or kV according to the patient''s size were employed. CLINICAL HISTORY: high risk for PE due to malignancy, tachycardia FINDINGS: There is no evidence of pulmonary embolism. There is no evidence of thoracic aortic aneurysm or dissection. There is no evidence of mediastinal or hilar mass or adenopathy. There is a small pericardial effusion. There is no evidence of pulmonary mass or suspicious nodule. There is mild atelectasis or scarring. There are calcified granulomas in the lingula and left lower lobe. There are mild changes of emphysema. Limited images of the upper abdomen demonstrate multiple small low-attenuation masses throughout the liver worrisome for widespread hepatic metastatic disease. There is no acute bony abnormality. IMPRESSION: 1. No evidence of pulmonary embolism. 2. Findings worrisome for widespread hepatic metastatic disease. Reviewed, Interpreted and Dictated by Solo Skinner III, MD Transcribed by Denzel Medellin Authenticated by Solo Skinner III, MD on 09/26/2021 02:38:44 PM [facility]
[2021-09-26 13:02] LABS: Microscopic, Urine URINE MICROSCOPIC (MICROSCOPIC)
[2021-09-26 13:03] LABS: Chloride 95 mmol/L (98-107); Potassium 3.8 mmoL/L (3.5-5.1); Sodium 129 mmol/L (136-145)
[2021-09-26 13:04] LABS: Appearance,Urine CLEAR (Clear); Bilirubin,Urine Negative (Negative); Blood, Urine Negative (Negative); Color,Urine YELLOW (Yellow); Glucose,Urine (UA) 3+ (Negative); Ketones,Urine Negative (Negative); Leukocyte Esterase,Urine Negative (Negative); Nitrate,Urine Negative (Negative); PH,Urine 5.5 (5.0-8.5); Protein,Urine Negative (Negative); Specific Gravity, Urine <= 1.005 (1.005-1.030); Urobilinogen,Urine 0.2 EU/dl (0.2)
[2021-09-26 13:05] LABS: Blood Urea Nitrogen 16 mg/dl (7-17); Creatinine Clearance Estimated 56 mL/min (50-200); Estimated Glomerular Filt Rate 55 ml/min (>60); GFR (African American) 66 ML/MIN (>60)
[2021-09-26 13:06] LABS: Alanine Aminotransferase 50 U/L (12-78); Albumin Level 3.7 g/dl (3.5-5.0); Albumin/Globulin Ratio 1.3 (1.1-1.8); Alkaline Phosphatase 233 U/L (38-126); Anion Gap 13.8 mEq/L (5-15); Aspartate Amino Transferase 36 U/L (14-36); Bilirubin,Total 0.9 mg/dl (0.2-1.3); Calcium 9.2 mg/dl (8.4-10.2); Carbon Dioxide 24 mmol/L (22.0-30.0); Globulin 2.8 g/dL (1.3-3.2); Glucose 219 mg/dl (74-100); Total Protein,Serum 6.5 g/dl (6.3-8.2)
[2021-09-26 13:12] LABS: Basophils % 0.4 % (0.1-2.0); Eosinophils % 2.9 % (0.1-12.0); Hematocrit 23.3 % (37.0-47.0); Hemoglobin 7.9 g/dL (12.2-16.2); Lymphocytes # 0.8 K/mm3 (0.7-4.5); Magnesium 1.4 mg/dl (1.6-2.3); Mean Corpuscular Hemoglobin 29.4 pg (27.0-31.2); Mean Corpuscular Volume 86.5 fl (81-99); Mean Platelet Volume 9.2 fl (7.4-10.4); Monocytes # 0.5 K/mm3 (0.1-1.0); Monocytes % 31.9 % (1.7-9.3); Neutrophils # 0.2 K/mm3 (1.8-7.8); Neutrophils % 9.8 % (37.0-80.0); Platelet Count 186 K/mm3 (142-424); Red Cell Distribution Width 19.8 % (11.5-17.5); White Blood Count 1.5 K/mm3 (4.8-10.8)
[2021-09-26 13:14] LABS: MANUAL DIFFERENTIAL MANUAL DIFFERENTIAL (MANUAL DIFF)
[2021-09-26 13:25] LABS: Troponin I < 0.01 ng/ml (0.00-0.034)
--- NOTE | 2021-09-26 13:33 | ECG_ITS ---
APPROVED REPORT Exam: Resting ECG HR:108 bpm ECG Measurements Heart Rate 108 AXES MA 161 P 33 QRSd 98 QRS 12 QT 324 T 86 QTc 387 Conclusion SINUS TACHYCARDIA NONSPECIFIC T-WAVE ABNORMALITY ABNORMAL RHYTHM ECG UNCONFIRMED REPORT Electronically signed by : Roddy Suero MD 09/27/2021 08:43:38
[2021-09-26 13:35] LABS: Bacteria,Urine Trace /lpf
[2021-09-26 14:11] LABS: Anisocytosis 1+; Lymphocytes % 28 % (10-50); Macrocytosis 1+; Microcytosis 1+; Monocytes % 36 % (2-9); Myelocytes % 4 (0-1); Neutrophils % 18 % (42-76); Platelet Estimate Normal; Total Cells Counted 50
[2021-09-26 14:12] LABS: Ovalocytes 1+
--- NOTE | 2021-09-26 15:23 | PC.NURSE ---
JOHN ALICEA spoke with Dr. Suero who is file conversion operator for service pts
--- NOTE | 2021-09-26 15:24 | PC.NURSE ---
notified care management of admission, spoke with
[2021-09-26 15:36] LABS: Coronavirus 19, PCR Not Detected (NotDetected); Influenza A, PCR Not Detected (NotDetected); Influenza B, PCR Not Detected (NotDetected)
--- NOTE | 2021-09-26 16:15 | PC.NURSE ---
Got report from Yasmin LORENZ
[2021-09-26 16:43] LABS: Troponin I < 0.01 ng/ml (0.00-0.034)
--- NOTE | 2021-09-26 17:32 | HMH.HP ---
*Admission Date: 09/26/21 *Chief complaint: Fever and chills *History of present illness: 70-year-old white female currently under active treatment for widespread metastatic lung cancer who came to the emergency department with chills, fever, malaise. Found to have temperature elevation at 99.7 along with significant neutropenia with ANC less than 1000. Admitted to hospital for IV antibiotics. [facility] History I have reviewed the patient's past medical history: Yes Medical History: Reports:: Anxiety, Cancer, Chronic Obstructive Pulmonary Disease (COPD), Coronary Artery Disease, Depression, Diabetes Mellitus Type 2, Gastroesophageal Reflux Disease(GERD), Heart Murmur, Hyperlipidemia, Hypertension, Osteoporosis Denies:: Diabetes Mellitus Type 1, Internal Pacemaker, MRSA, Seizures *Have you ever received a pneumonia vaccine?: Yes *Have you received a flu vaccine this season?: Yes Other Medical History: Reports: Anemia, Arthritis, Cataracts, Osteoporosis. Denies: Blood Transfusion Reaction Laterality Cases: Bilateral: Arthroscopy Shoulder Other Surgeries: Yes: Appendectomy, Cardiac Catheterization, Cholecystectomy, Colonoscopy, EGD, Hysterectomy-Total, Tubal Ligation. No: Pacemaker. Comment Only: Other (MILD) Amputation: No Fractures: Yes (lt pinky finger) - *Social History Smoking Status: Former smoker Tobacco Type: cigarettes # Packs/Day (cigarettes): 1 #Yrs smoked (if former smoker): 4 Alcohol Intake: never Alcohol Intake Frequency:: other Substance Use Type: denies use *Occupational Status:: employed Housing: house Household Members: friend(s) *Travel in the last 8 weeks: None - Psychiatric History Pschychiatric History:: Reports:: Anxiety, Depression Family Hx:: Coronary Artery Disease Review of Systems - Review of Systems Review of systems:: pertinent systems reviewed and negative unless documented below Patient denies upper respiratory symptoms, denies GI symptoms. Denies symptoms. Reports that she simply just felt weak. Reports that she feels much better after some IV fluids and treatment in the emergency department. - *Neurologic Reports other (Generalized weakness), Denies headache(s), Denies tingling/numbness/burning sensations Meds Home Medications Medication Instructions Recorded Confirmed Type Umeclidinium [place] [Incruse 1 puff IH DAILY 06/03/17 07/12/21 History Ellipta] dilTIAZem HCL [Dilt-Xr] 240 mg PO DAILY 06/03/17 07/12/21 History cetirizine 10 mg capsule 10 mg PO QDAY cap 06/11/17 07/12/21 History hydroxyzine HCl 25 mg tablet 12.5 mg PO TID tab 06/11/17 07/12/21 History Atorvastatin Calcium [Lipitor 40mg 40 mg PO HS 06/22/18 07/12/21 History Tablet] Fluoxetine HCl 20 mg PO DAILY 06/22/18 07/12/21 History Fluticasone/Salmeterol [Advair 1 inh IH BID 06/22/18 07/12/21 History 250/50mcg Diskus] Furosemide [Lasix 40mg tab] 40 mg PO BID 06/22/18 07/12/21 History Metformin HCl 500 mg PO DAILY 06/22/18 07/12/21 History Ropinirole HCl [Requip] 5 mg PO DAILY 06/22/18 07/12/21 History lisinopriL [Lisinopril 10mg Tab] 10 mg PO DAILY 06/22/18 07/12/21 History metoprolol succinate 25 mg 25 mg PO QHS tab 12/21/19 07/12/21 History tablet,extended release 24 hr Cimetidine 400 mg PO DAILY 09/25/20 07/12/21 History Benzonatate [Benzonatate 100mg 100 mg PO TIDP PRN #30 cap 03/27/21 07/12/21 Rx cap] Tramadol HCl [Tramadol 50mg 50 mg PO Q6HP PRN #10 tab 06/15/21 07/12/21 Rx Tab] Empagliflozin [Jardiance] 10 mg PO DAILY 07/04/21 07/12/21 History Aspirin [Vazalore] 81 mg PO DAILY 07/06/21 07/12/21 History Allergies Allergy/AdvReac Type Severity Reaction Status Date / Time hydrochlorothiazide Allergy Severe ITCHING Verified 07/12/21 08:25 amlodipine Allergy Intermediate ITCHING Verified 07/12/21 08:25 Exam Vital signs and Labs for Last 24 Hours: Temp Pulse Resp BP Pulse Ox 99.0 F 97 H 20 106/54 L 95 09/26/21 16:56 09/26/21 16:56 09/26/21 16:56
[2021-09-27 01:29] VITALS: TEMP 39.2
[2021-09-27 03:56] VITALS: BP 132/68; PULSE 98; RESP 16; TEMP 37.2; O2SAT 96
--- NOTE | 2021-09-27 04:35 | PC.NURSE ---
Pt has rested intermittently t/o shift. Pt's fever spiked to 102.5, removed covers, decreased room temperature, and administered meds per JUL. Pt's recent temp was 98.9. Pt has voiced no c/o of pain. Patient has remained on room air with O2 sats 96-97%. Patient is able to make needs known to staff.
[2021-09-27 05:33] VITALS: BMI 24.0
[2021-09-27 06:31] VITALS: TEMP 37
[2021-09-27 06:33] LABS: POC Glucose,Bedside 160 (70-110)
--- NOTE | 2021-09-27 07:12 | HMH.ACPN2 ---
Internal Medicine - PN: Subj *Date: 09/27/21 *Time: 07:12 Interval history: Patient states that she feels great. She feels much better than on admission. Had a temperature of 102.5 yesterday around midnight and into the registration officer hours but now is afebrile. Patient denies cough, rash, joint pain, dysuria, throat pain or nasal drainage Exam Vital signs and Labs for Last 24 Hours: Temp Pulse Resp BP Pulse Ox 98.6 F 98 H 16 132/68 96 09/27/21 06:31 09/27/21 03:56 09/27/21 03:56 09/27/21 03:56 09/27/21 03:56 Laboratory Results - last 24 hr 09/26/21 12:33: WBC 1.5 L*, RBC 2.70 L, Hgb 7.9 L, Hct 23.3 L, MCV 86.5, MCH 29.4, MCHC 34.0, RDW 19.8 H, Plt Count 186, MPV 9.2, Neut % (Auto) 9.8 L, Lymph % (Auto) 55.0 H, [place] % (Auto) 31.9 H, Eos % (Auto) 2.9, Baso % (Auto) 0.4, Neut # (Auto) 0.2 L*, Lymph # (Auto) 0.8, [place] # (Auto) 0.5, Eos # (Auto) 0.0, Baso # (Auto) 0.0, Total Counted 50, Neutrophils % (Manual) 18 L, Lymphocytes % (Manual) 28, Atypical Lymphs % 4.0, Monocytes % (Manual) 36 H, Myelocytes % 4 H, Blast Cells % 10.0, Differential Comment , Platelet Estimate Normal, Anisocytosis 1+, Microcytosis 1+, Macrocytosis 1+, Ovalocytes 1+ 09/26/21 12:33: Sodium 129 L, Potassium 3.8, Chloride 95 L, Carbon Dioxide 24, Anion Gap 13.8, BUN 16, Creatinine 1.00, Estimated Creat Clear 56, Estimated GFR 55 L, Est GFR ( Amer) 66, Glucose 219 H, Calcium 9.2, Total Bilirubin 0.9, AST 36, ALT 50, Alkaline Phosphatase 233 H, Total Protein 6.5, Albumin 3.7, Globulin 2.8, Albumin/Globulin Ratio 1.3 05/18/22 12:33: Troponin I < 0.01 09/26/21 12:33: Magnesium 1.4 L 09/26/21 12:59: Urine Color Yellow, Urine Appearance Clear, Urine pH 5.5, Ur Specific [place] <= 1.005, Urine Protein Negative, Urine Glucose (UA) 3+, Urine Ketones Negative, Urine Blood Negative, Urine Nitrate Negative, Urine Bilirubin Negative, Urine Urobilinogen 0.2, Ur Leukocyte Esterase Negative, Urine RBC None, Urine WBC None, Ur Squamous Epith Cells 3-5, Urine Bacteria Trace 09/26/21 14:46: SARS-CoV-2 (PCR) Not detected, Influenza A Untype (PCR) Not detected, Influenza Type B (PCR) Not detected 09/26/21 16:00: Troponin I < 0.01 09/27/21 06:26: POC Glucose 160 H I & O for Last 24 hours: Intake & Output 09/24/21 09/25/21 09/26/21 09/27/21 11:59 11:59 11:59 11:59 Intake Total 1058 / 1058 Balance 1058 / 1058 Weight 144 lb 6 oz Narrative: Patient does look like she feels good, oriented, alert, pleasant. Oropharynx clear. No lymphadenitis. Lungs are clear and well-expanded, abdomen soft, nontender. No rash, heart rate regular. No edema or clubbing. Assessment and Plan (1) Neutropenia with fever Status: Acute Category: Medical Code(s): D70.9 - Neutropenia, unspecified; R50.81 - Fever presenting with conditions classified elsewhere (2) Diabetes mellitus type 2 in nonobese Status: Acute Category: Medical Code(s): E11.9 - Type 2 diabetes mellitus without complications - Assessment and plan all Dx Assessment and Plan for all problems:: Continue antibiotics, await blood cultures, urinalysis looks good. Check nasal PCR. Recheck chest x-ray given fever last night. Dr. Mendez evaluation if she is here today.
--- NOTE | 2021-09-27 07:15 | P.CONPHA_ITS ---
[facility] VTE Monitoring - Patient Demographics Admission date: 09/27/21 Report Date: 09/27/21 Time: 07:15 Allergies/Adverse Reactions: Patient Allergies hydrochlorothiazide Allergy (Severe, Verified 07/12/21 08:25) ITCHING amlodipine Allergy (Intermediate, Verified 07/12/21 08:25) ITCHING Height: 1.65 m Weight: 65.487 kg Patient Problems: Current Active Problems Diabetes mellitus type 2 in nonobese (Acute) Neutropenia with fever (Acute) - VTE Risk Labs: VTE Related Lab Results Hgb 7.9 g/dL (12.2-16.2) L 09/26/21 12:33 Hct 23.3 % (37.0-47.0) L 09/26/21 12:33 Plt Count 186 K/mm3 (142-424) 09/26/21 12:33 BUN 16 mg/dl (7-17) 09/26/21 12:33 Creatinine 1.00 mg/dl (0.52-1.04) 09/26/21 12:33 Estimated Creat Clear 56 mL/min (50-200) 09/26/21 12:33 Clinical Trial Participant: No - Prophylaxis VTE Prophylaxis Ordered?: Yes Types of VTE Prophylaxis: TEDS Knee High
[2021-09-27 07:18] LABS: Basophils % 0.6 % (0.1-2.0); Eosinophils # 0.1 K/mm3 (0.0-0.4); Eosinophils % 3.4 % (0.1-12.0); Hematocrit 21.3 % (37.0-47.0); Hemoglobin 7.3 g/dL (12.2-16.2); Lymphocytes # 1.3 K/mm3 (0.7-4.5); Mean Corpuscular HGB Conc 34.3 g/dL (31.8-35.4); Mean Corpuscular Hemoglobin 29.3 pg (27.0-31.2); Mean Corpuscular Volume 85.4 fl (81-99); Mean Platelet Volume 8.6 fl (7.4-10.4); Monocytes # 0.6 K/mm3 (0.1-1.0); Monocytes % 21.5 % (1.7-9.3); Neutrophils # 0.7 K/mm3 (1.8-7.8); Neutrophils % 26.6 % (37.0-80.0); Platelet Count 219 K/mm3 (142-424); Red Cell Distribution Width 19.7 % (11.5-17.5); White Blood Count 2.6 K/mm3 (4.8-10.8)
[2021-09-27 07:21] LABS: MANUAL DIFFERENTIAL MANUAL DIFFERENTIAL (MANUAL DIFF)
[2021-09-27 07:28] LABS: Adenovirus,PCR Not Detected (NotDetected); Bordetella Pertussis Not Detected (NotDetected); Chlamydophila Pneumoniae, PCR Not Detected (NotDetected); Coronavirus 229E Not Detected (NotDetected); Coronavirus NL63 Not Detected (NotDetected); Coronavirus OC43 Not Detected (NotDetected); Coronovirus HKU1,PCR Not Detected (NotDetected); Human Metapneumovirus Not Detected (NotDetected); Influenza A, PCR Not Detected (NotDetected); Influenza AH1, 2009 Not Detected (NotDetected); Influenza AH1, PCR Not Detected (NotDetected); Influenza AH3,PCR Not Detected (NotDetected); Influenza B, PCR Not Detected (NotDetected); Mycoplasma Pneumoniae, PCR Not Detected (NotDetected); Parainfluenza 1, PCR Not Detected (NotDetected); Parainfluenza 2, PCR Not Detected (NotDetected); Parainfluenza 3, PCR Not Detected (NotDetected); Parainfluenza 4, PCR Not Detected (NotDetected); Respiratory Syncytial Virus Not Detected (NotDetected); Rhinovirus/Enterovirus Not Detected (NotDetected)
[2021-09-27 07:29] LABS: Anion Gap 10.6 mEq/L (5-15); Blood Urea Nitrogen 13 mg/dl (7-17); Calcium 8.4 mg/dl (8.4-10.2); Carbon Dioxide 26 mmol/L (22.0-30.0); Chloride 100 mmol/L (98-107); Creatinine Clearance Estimated 54 mL/min (50-200); Estimated Glomerular Filt Rate 71 ml/min (>60); GFR (African American) 86 ML/MIN (>60); Glucose 149 mg/dl (74-100); Potassium 3.6 mmoL/L (3.5-5.1); Sodium 133 mmol/L (136-145)
[2021-09-27 08:00] VITALS: BP 132/72; PULSE 96; RESP 22; TEMP 36.8; O2SAT 98
[2021-09-27 08:00] LABS: Anisocytosis 1+; Eosinophils % 2 % (0-3); Hypochromasia 1+; Lymphocytes % 47 % (10-50); Monocytes % 21 % (2-9); Myelocytes % 1 (0-1); Neutrophils % 21 % (42-76); Nucleated Red Blood Cells 1; Platelet Estimate Normal; Total Cells Counted 100
[2021-09-27 08:01] LABS: Ovalocytes 1+
--- NOTE | 2021-09-27 08:37 | PC.NURSE ---
Spoke with francesco from [facility] she is going to fax over pts current medication list.
--- NOTE | 2021-09-27 10:00 | HMH.PHAINT ---
pt and family are unable to give home medication list. home medication list updated using list from [facility].
[2021-09-27 11:51] LABS: POC Glucose,Bedside 180 (70-110)
--- NOTE | 2021-09-27 15:47 | PC.NURSE ---
Pt's coccyx is starting to get a little red I placed a flower dressing on her back side to try and relieve some of the pressure.
--- NOTE | 2021-09-27 15:48 | PC.NURSE ---
Pt stated that her lower abdomen was hurting. It was distended and felt hard. I got an order from Dr. Suero to place a FC. As I laid the pt back to place the FC she had a unmeasured urine output. I attempted to place FC and it either was in vagina or she had no urine left. Did not want to try and insert again due to possible exposure to infection. I will bladder scan pt once I am able to obtain bladder scanner. Then will see if we need to attempt to place FC again or not. Pt is stating that she feels better and doesn't feel the urgency to urinate any more. Her stomach is still a little distended, but is soft. Will continue to monitor.
[2021-09-27 16:00] VITALS: BP 158/79; PULSE 97; RESP 20; TEMP 36.9; O2SAT 96
--- NOTE | 2021-09-27 16:03 | HMH.CONS ---
*Admission Date: 09/27/21 *Reason for consult:: neutropenic fever *History of present illness: 70 yo wf presented to ed with fever. 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 she had cycle 3 of carbo/etoposide at on 09/11/2021. in the ed her anc was 200. today her anc is 700. pt is in bed eating and states she is feeling much better. she was started on cefepime. [facility] History Medical History: Reports:: Anxiety, Cancer, Chronic Obstructive Pulmonary Disease (COPD), Coronary Artery Disease, Depression, Diabetes Mellitus Type 2, Gastroesophageal Reflux Disease(GERD), Heart Murmur, Hyperlipidemia, Hypertension, Osteoporosis Denies:: Diabetes Mellitus Type 1, Internal Pacemaker, MRSA, Seizures *Have you ever received a pneumonia vaccine?: Yes *Have you received a flu vaccine this season?: Yes Other Medical History: Reports: Anemia, Arthritis, Cataracts, Chemotherapy, Osteoporosis. Denies: Blood Transfusion Reaction Laterality Cases: Bilateral: Arthroscopy Shoulder Other Surgeries: Yes: Appendectomy, Cardiac Catheterization, Cholecystectomy, Colonoscopy, EGD, Hysterectomy-Total, Tubal Ligation. No: Pacemaker. Comment Only: Other (MILD) Amputation: No Fractures: Yes (lt pinky finger) - *Social History Last grade of school completed: 9th or 10th Smoking Status: Former smoker Tobacco Type: cigarettes # Packs/Day (cigarettes): 1 #Yrs smoked (if former smoker): 4 Alcohol Intake: never Alcohol Intake Frequency:: other Substance Use Type: denies use *Occupational Status:: retired, disabled Housing: house Household Members: family *Travel in the last 8 weeks: None - Psychiatric History Pschychiatric History:: Reports:: Anxiety, Depression Family Hx:: Coronary Artery Disease Review of Systems - *Neurologic Reports other (Generalized weakness), Denies headache(s), Denies tingling/numbness/burning sensations Meds Home Medications Medication Instructions Recorded Confirmed Type Atorvastatin Calcium [Lipitor 40mg 40 mg PO HS 06/22/18 09/27/21 History Tablet] Fluticasone/Salmeterol [Advair 1 inh IH BID 06/22/18 09/27/21 History 250/50mcg Diskus] Metformin HCl 500 mg PO BID 06/22/18 09/27/21 History Aspirin [Vazalore] 81 mg PO DAILY 07/06/21 09/27/21 History Albuterol Sulfate [Albuterol 2 puff IH Q6HP PRN 09/27/21 09/27/21 History Sulfate Hfa] Cyanocobalamin (Vitamin B-12) 500 mcg PO DAILY 09/27/21 09/27/21 History [Vitamin B-12] Cyclobenzaprine HCl 5 mg PO TIDP PRN 09/27/21 09/27/21 History [Cyclobenzaprine 5mg Tab*] Etoposide 50 mg PO DAILY 09/27/21 09/27/21 History Ropinirole HCl 0.25 mg PO HS 09/27/21 09/27/21 History Sennosides [Justine-Shane] 2 tab PO DAILYP PRN 09/27/21 09/27/21 History Trazodone HCl 50 mg PO HS 09/27/21 09/27/21 History lisinopriL [Lisinopril] 5 mg PO DAILY 09/27/21 09/27/21 History polyethylene glycoL 3350 [Miralax 17 gm PO DAILYP PRN 09/27/21 09/27/21 History 17gm Packet] Allergies Allergy/AdvReac Type Severity Reaction Status Date / Time hydrochlorothiazide Allergy Severe ITCHING Verified 07/12/21 08:25 amlodipine Allergy Intermediate ITCHING Verified 07/12/21 08:25 Exam Vital signs and Labs for Last 24 Hours: Temp Pulse Resp BP Pulse Ox 98.2 F 96 H 22 132/72 98 09/27/21 08:00 09/27/21 08:00 09/27/21 08:00 09/27/21 08:00 09/27/21 08:00 Laboratory Results - last 24 hr 09/26/21 16:00: Troponin I < 0.01 09/27/21 06:26: POC Glucose 160 H 09/27/21 06:50: WBC 2.6 L D, RBC 2.50 L, Hgb 7.3 L, Hct 21.3 L, MCV 85.4, MCH 29.3, MCHC 34.3, RDW 19.7 H, Plt Count 219, MPV 8.6, Neut % (Auto) 26.6 L, Lymph % (Auto) 48.0, [place] % (Auto) 21.5 H D, Eos % (Auto) 3.4, Baso % (Auto) 0.6, Neut # (Auto) 0.7 L*, Lymph # (Auto) 1.3, [place] # (Auto) 0.6, Eos # (Auto) 0.1, Baso # (Auto) 0.0, Total Counted 100, Neutrophils % (Manual) 21 L, Band Neutrophils % 4.0, Lymphocytes % (Manual) 47, Atypical Lymphs % 1.0, Monocytes % (Manual) 21
[2021-09-27 17:07] LABS: POC Glucose,Bedside 142 (70-110)
--- NOTE | 2021-09-27 17:32 | PC.NURSE ---
Pt is still having on and off issue with urination. When you lay her flat and frog her legs she is able to pass urine. I spoke with Dr. Suero about holding off on doing the FC. He said as long as she is passing urine he is fine holding off.
--- NOTE | 2021-09-27 19:32 | PC.NURSE ---
Tried to change pt IV she refused to change the EMS IV.
[2021-09-27 20:00] VITALS: BP 147/75; PULSE 109; RESP 16; TEMP 37.4; O2SAT 93
[2021-09-27 20:37] LABS: POC Glucose,Bedside 162 (70-110)
[2021-09-28 03:51] VITALS: BP 128/59; PULSE 106; RESP 17; TEMP 37.3; O2SAT 91
--- NOTE | 2021-09-28 04:27 | PC.NURSE ---
Patient has rested intermittently t/o shift. Pt has voiced no c/o of pain. Patient has remained on room air with O2 sats 96-97%. Patient is able to make needs known to staff. Patient has had 3 wet briefs thus far no urinary retention noted. Prelim blood CA resulting with gram positive cocci PCR staphylococcus spp/ staphylococcus epidermidis meca/c detected. Notified stonecutter hand who started patient on vanc. Dosing done by nightwatch see JUL.
[2021-09-28 04:31] VITALS: BMI 24.7
[2021-09-28 07:01] LABS: Basophils % 0.9 % (0.1-2.0); Eosinophils # 0.1 K/mm3 (0.0-0.4); Eosinophils % 2.8 % (0.1-12.0); Hematocrit 22.8 % (37.0-47.0); Hemoglobin 7.6 g/dL (12.2-16.2); Lymphocytes # 1.3 K/mm3 (0.7-4.5); Lymphocytes % 37.9 % (10-50); Mean Corpuscular HGB Conc 33.3 g/dL (31.8-35.4); Mean Corpuscular Hemoglobin 29.2 pg (27.0-31.2); Mean Corpuscular Volume 87.8 fl (81-99); Mean Platelet Volume 8.8 fl (7.4-10.4); Monocytes # 0.3 K/mm3 (0.1-1.0); Monocytes % 9.7 % (1.7-9.3); Neutrophils # 1.7 K/mm3 (1.8-7.8); Neutrophils % 48.6 % (37.0-80.0); Platelet Count 316 K/mm3 (142-424); Red Cell Distribution Width 19.8 % (11.5-17.5); White Blood Count 3.5 K/mm3 (4.8-10.8)
[2021-09-28 07:13] LABS: Anion Gap 9.6 mEq/L (5-15); Blood Urea Nitrogen 7 mg/dl (7-17); Calcium 8.2 mg/dl (8.4-10.2); Carbon Dioxide 26 mmol/L (22.0-30.0); Chloride 102 mmol/L (98-107); Creatinine Clearance Estimated 56 mL/min (50-200); Estimated Glomerular Filt Rate 83 ml/min (>60); GFR (African American) 100 ML/MIN (>60); Glucose 115 mg/dl (74-100); Potassium 3.6 mmoL/L (3.5-5.1); Sodium 134 mmol/L (136-145)
[2021-09-28 07:17] VITALS: BP 149/72; PULSE 105; RESP 16; TEMP 36.8; O2SAT 93
--- NOTE | 2021-09-28 08:12 | HMH.DCSUM ---
General - General Admission date:: 09/26/21 Discharge date: 09/28/21 HPI HPI: 70-year-old white female currently under active treatment for widespread metastatic lung cancer who came to the emergency department with chills, fever, malaise. Found to have temperature elevation at 99.7 along with significant neutropenia with ANC less than 1000. Admitted to hospital for IV antibiotics. Hospital Course Hospital Course: Patient was admitted, and placed on cefepime for neutropenic fever. She did well, with 1 more fever spike 24 hours later, but no cultures were noted positive for blood or urine until 48 hours later when she had staph epi cultured out of 1 bottle from her blood cultures. She was found to have negative PCR testing. Chest x-ray was also clear. She improved nicely from a symptomatic treatment area, and felt well after fluids and Tylenol. Dr. Mendez was consulted. [place] that management was appropriate and had no further recommendations. Her white count improved and ANC counts improved to over 1000 and her hemoglobin also improved. This morning she is afebrile, feels good, exam essentially normalized. Patient will be discharged home, cefdinir orally for antibiotic coverage, repeat blood cultures from the staph epi culture negative. She will follow-up with oncology and with Dr. Roberts as scheduled. Objective Vital signs: Temp Pulse Resp BP Pulse Ox 98.3 F 105 H 16 149/72 H 93 L 09/28/21 07:17 09/28/21 07:17 09/28/21 07:17 09/28/21 07:17 09/28/21 07:17 no acute distress - *Routine HEENT Exam Head: Present: normocephalic Eye: Present: EOMI, PERRL ENT: Present: mucous membranes moist - *Routine Neck Exam Present: supple - *Routine Respiratory Exam Present: CTA bilaterally - *Routine Cardiovascular Exam Present: RRR - *Routine Abdominal Exam Present: soft, normoactive bowel sounds. Absent: tenderness - *Routine Extremities Exam Absent: cyanosis, clubbing, edema - *Routine Skin Exam Present: warm. Absent: rash - Detailed Eye Exam Eyelids: Bilateral normal inspection Results Labs on day of discharge: Labs from last 24 hours 09/28/21 09/28/21 09/27/21 06:10 06:10 20:17 WBC 3.5 L D RBC 2.60 L Hgb 7.6 L Hct 22.8 L MCV 87.8 MCH 29.2 MCHC 33.3 RDW 19.8 H Plt Count 316 D MPV 8.8 Neut % (Auto) 48.6 Lymph % (Auto) 37.9 [place] % (Auto) 9.7 H Eos % (Auto) 2.8 Baso % (Auto) 0.9 Neut # (Auto) 1.7 L Lymph # (Auto) 1.3 [place] # (Auto) 0.3 Eos # (Auto) 0.1 Baso # (Auto) 0.0 Sodium 134 L Potassium 3.6 Chloride 102 Carbon Dioxide 26 Anion Gap 9.6 BUN 7 D Creatinine 0.70 Estimated Creat Clear 56 Estimated GFR 83 Est GFR ( Amer) 100 Glucose 115 H D POC Glucose 162 H Calcium 8.2 L Chlamy pneumoniae PCR Adenovirus (PCR) B. pertussis DNA (PCR) Coronavirus OC43 (PCR) Coronavirus HKU1 (PCR) Coronavirus 229E (PCR) Coronavirus NL63 (PCR) Human Metapneumovir PCR Influenza A (H1) PCR Influ A (H1N1/09) PCR Influenza A (H3) PCR Influenza Type A (PCR) Influenza Type B (PCR) M. pneumoniae (PCR) Parainfluenza 1 (PCR) Parainfluenza 2 (PCR) Parainfluenza 3 (PCR) Parainfluenza 4 (PCR) RSV (PCR) Entero/Rhino (PCR) 09/27/21 09/27/21 09/27/21 16:39 11:32 07:23 WBC RBC Hgb Hct MCV MCH MCHC RDW Plt Count MPV Neut % (Auto) Lymph % (Auto) [place] % (Auto) Eos % (Auto) Baso % (Auto) Neut # (Auto) Lymph # (Auto) [place] # (Auto) Eos # (Auto) Baso # (Auto) Sodium Potassium Chloride Carbon Dioxide Anion Gap BUN Creatinine Estimated Creat Clear Estimated GFR Est GFR ( Amer) Glucose POC Glucose 142 H 180 H Calcium Chlamy pneumoniae PCR Not detected Adenovirus (PCR) Not detected B.
--- NOTE | 2021-09-28 08:22 | HMH.PHACONS ---
- Pharmacy Consult Date: 09/28/21 Time: 08:22 Referring provider: DR. DOMINGUEZ Reason for Consult:: VANCOMCYIN DOSING Allergies and ADEs:: Allergies Allergy/AdvReac Type Severity Reaction Status Date / Time hydrochlorothiazide Allergy Severe ITCHING Verified 07/12/21 08:25 amlodipine Allergy Intermediate ITCHING Verified 07/12/21 08:25 Home Medications:: Home Medications Medication Instructions Recorded Confirmed Type Atorvastatin Calcium [Lipitor 40mg 40 mg PO HS 06/22/18 09/27/21 History Tablet] Fluticasone/Salmeterol [Advair 1 inh IH BID 06/22/18 09/27/21 History 250/50mcg Diskus] Metformin HCl 500 mg PO BID 06/22/18 09/27/21 History Aspirin [[place]] 81 mg PO DAILY 07/06/21 09/27/21 History Albuterol Sulfate [Albuterol 2 puff IH Q6HP PRN 09/27/21 09/27/21 History Sulfate Hfa] Cyanocobalamin (Vitamin B-12) 500 mcg PO DAILY 09/27/21 09/27/21 History [Vitamin B-12] Cyclobenzaprine HCl 5 mg PO TIDP PRN 09/27/21 09/27/21 History [Cyclobenzaprine 5mg Tab*] Etoposide 50 mg PO DAILY 09/27/21 09/27/21 History Ropinirole HCl 0.25 mg PO HS 09/27/21 09/27/21 History Sennosides [Justine-Shane] 2 tab PO DAILYP PRN 09/27/21 09/27/21 History Trazodone HCl 50 mg PO HS 09/27/21 09/27/21 History lisinopriL [Lisinopril] 5 mg PO DAILY 09/27/21 09/27/21 History polyethylene glycoL 3350 [Miralax 17 gm PO DAILYP PRN 09/27/21 09/27/21 History 17gm Packet] Cefdinir [Omnicef 300mg Capsule] 300 mg PO BID #10 cap 09/28/21 Rx Height: 1.65 m Weight: 67.313 kg Laboratory Results:: Laboratory Results - last 24 hr 09/27/21 07:23: Chlamy pneumoniae PCR Not detected, Adenovirus (PCR) Not detected, B. pertussis DNA (PCR) Not detected, Coronavirus OC43 (PCR) Not detected, Coronavirus HKU1 (PCR) Not detected, Coronavirus 229E (PCR) Not detected, Coronavirus NL63 (PCR) Not detected, Human Metapneumovir PCR Not detected, Influenza A (H1) PCR Not detected, Influ A (H1N1/09) PCR Not detected, Influenza A (H3) PCR Not detected, Influenza Type A (PCR) Not detected, Influenza Type B (PCR) Not detected, M. pneumoniae (PCR) Not detected, Parainfluenza 1 (PCR) Not detected, Parainfluenza 2 (PCR) Not detected, Parainfluenza 3 (PCR) Not detected, Parainfluenza 4 (PCR) Not detected, RSV (PCR) Not detected, Entero/Rhino (PCR) Not detected 09/27/21 11:32: POC Glucose 180 H 09/27/21 16:39: POC Glucose 142 H 09/27/21 20:17: POC Glucose 162 H 09/28/21 06:10: WBC 3.5 L D, RBC 2.60 L, Hgb 7.6 L, Hct 22.8 L, MCV 87.8, MCH 29.2, MCHC 33.3, RDW 19.8 H, Plt Count 316 D, MPV 8.8, Neut % (Auto) 48.6, Lymph % (Auto) 37.9, [place] % (Auto) 9.7 H, Eos % (Auto) 2.8, Baso % (Auto) 0.9, Neut # (Auto) 1.7 L, Lymph # (Auto) 1.3, [place] # (Auto) 0.3, Eos # (Auto) 0.1, Baso # (Auto) 0.0 09/28/21 06:10: Sodium 134 L, Potassium 3.6, Chloride 102, Carbon Dioxide 26, Anion Gap 9.6, BUN 7 D, Creatinine 0.70, Estimated Creat Clear 56, Estimated GFR 83, Est GFR ( Amer) 100, Glucose 115 H D, Calcium 8.2 L Medical History: Reports:: Anxiety, Cancer, Chronic Obstructive Pulmonary Disease (COPD), Coronary Artery Disease, Depression, Diabetes Mellitus Type 2, Gastroesophageal Reflux Disease(GERD), Heart Murmur, Hyperlipidemia, Hypertension, Osteoporosis Denies:: Diabetes Mellitus Type 1, Internal Pacemaker, MRSA, Seizures Assessment and Plan (1) Neutropenia with fever Status: Acute Category: Medical Code(s): D70.9 - Neutropenia, unspecified; R50.81 - Fever presenting with conditions classified elsewhere (2) Diabetes mellitus type 2 in nonobese Status: Acute Category: Medical Code(s): E11.9 - Type 2 diabetes mellitus without complications - Assessment and plan all Dx Assessment and Plan for all problems:: Objective: Patient: Floor: Age: 70 yo Serum creatinine: 1 mg/dL Height: 65.0 Inches Weight (kg): 67.3 Assessment: IBW (kg): 57.00 Dosing wt(kg): 67.3 Estimated Creatinine cleara
--- NOTE | 2021-09-28 08:53 | PC.NURSE ---
Spoke with PT about discharge. She stated that her ride works till 1330. They will not be able to get her till after then.
[2021-09-29 09:58] LABS: POC Glucose,Bedside 134 (70-110)
--- NOTE | 2021-10-01 11:58 | CARE MANAGER ---
Contacted patient related to discharge from hospital. She states she is taking her antibiotic as prescribed and has an appointment with Dr. Roberts on the . She follows up for treatment tomorrow Friday, Friday, and . She states she feels better and denies any questions or concerns.
== END 2021-09-28 14:06 | disposition home or self-care (01) | DRG 809 ==
LOC: ER 14:52 → 2ND 15:40
PROVIDERS: Admitting Provider Internal Medicine Adolescent Medicine; Emergency Provider Emergency Medicine; PCP Internal Medicine; Visit Provider Internal Medicine Adolescent Medicine
DX: D70.2 Other drug-induced agranulocytosis (principal); C78.7 Secondary malignant neoplasm of liver and intrahepatic bile duct; C34.90 Malignant neoplasm of unspecified part of unspecified bronchus or lung; D61.811 Other drug-induced pancytopenia; R50.81 Fever presenting with conditions classified elsewhere; E11.9 Type 2 diabetes mellitus without complications; Z87.891 Personal history of nicotine dependence; Z20.822 Contact with and (suspected) exposure to COVID-19; E78.5 Hyperlipidemia, unspecified; I25.10 Atherosclerotic heart disease of native coronary artery without angina pectoris; J44.9 Chronic obstructive pulmonary disease, unspecified; F41.9 Anxiety disorder, unspecified; F32.A Depression, unspecified; M19.90 Unspecified osteoarthritis, unspecified site; M81.0 Age-related osteoporosis without current pathological fracture; T45.1X5A Adverse effect of antineoplastic and immunosuppressive drugs, initial encounter; Z79.84 Long term (current) use of oral hypoglycemic drugs
CPT/HCPCS: 36415; 71045; 71275; 80048; 80053; 81001; 82962; 83735; 84484; 85007; 85025; 87040; 87077; 87186; 87486; 87581; 87632; 87798; 93005; 99285; C9803; J2405; J3370; J3475; Q9967; U0003; U0005

== ENCOUNTER 2021-10-14 15:53 | Emergency (ER) | payer MEDICARE, MEDICAID, SELFPAY ==
[2021-10-14 15:57] VITALS: BP 122/72; PULSE 114; RESP 22; TEMP 36.6; O2SAT 98; BMI 24.1
[2021-10-14 16:03] VITALS: TEMP 39.3
--- NOTE | 2021-10-14 16:13 | XR_ITS ---
PROCEDURE INFORMATION: Exam: XR Chest Exam date and time: 10/14/2021 4:23 PM Age: 70 years old Clinical indication: Other: Nausea, vomiting, diarrhea and generalized weakness; Patient HX: Nausea, vomiting, diarrhea, and generalized weakness per patient. TECHNIQUE: Imaging protocol: XR of the chest. Views: 1 view. COMPARISON: CR XR CHEST PORTABLE 09/26/2021 12:57 PM FINDINGS: Lungs: Unremarkable. No consolidation. Pleural spaces: Unremarkable. No pleural effusion. No pneumothorax. Heart/Mediastinum: Unremarkable. No cardiomegaly. Bones/joints: Unremarkable. IMPRESSION: No acute findings.
[2021-10-14 16:30] VITALS: BP 139/73; PULSE 116; RESP 18; O2SAT 97
[2021-10-14 16:38] LABS: Chloride 98 mmol/L (98-107); Sodium 132 mmol/L (136-145)
[2021-10-14 16:40] LABS: Alanine Aminotransferase 20 U/L (12-78); Alkaline Phosphatase 130 U/L (38-126); Aspartate Amino Transferase 23 U/L (14-36); Bilirubin,Total 0.9 mg/dl (0.2-1.3); Blood Urea Nitrogen 23 mg/dl (7-17); Creatinine Clearance Estimated 54 mL/min (50-200); Estimated Glomerular Filt Rate 62 ml/min (>60); GFR (African American) 75 ML/MIN (>60)
[2021-10-14 16:41] LABS: Albumin Level 4.1 g/dl (3.5-5.0); Albumin/Globulin Ratio 1.5 (1.1-1.8); Calcium 9.1 mg/dl (8.4-10.2); Carbon Dioxide 24 mmol/L (22.0-30.0); Globulin 2.8 g/dL (1.3-3.2); Glucose 114 mg/dl (74-100); Total Protein,Serum 6.9 g/dl (6.3-8.2)
[2021-10-14 16:42] LABS: Lactic Acid 0.9 mmol/L (0.7-2.1)
[2021-10-14 16:48] LABS: Basophils % 1.2 % (0.1-2.0); Eosinophils % 2.2 % (0.1-12.0); Hemoglobin 7.1 g/dL (12.2-16.2); Lymphocytes # 0.5 K/mm3 (0.7-4.5); Lymphocytes % 87.4 % (10-50); Mean Corpuscular HGB Conc 33.9 g/dL (31.8-35.4); Mean Corpuscular Volume 85.4 fl (81-99); Monocytes % 0.9 % (1.7-9.3); Neutrophils # 0.1 K/mm3 (1.8-7.8); Platelet Count 75 K/mm3 (142-424); Red Blood Count 2.44 M/mm3 (4.20-5.40); Red Cell Distribution Width 19.5 % (11.5-17.5)
[2021-10-14 16:49] LABS: Hematocrit 20.8 % (37.0-47.0); Neutrophils % 8.3 % (37.0-80.0)
[2021-10-14 16:50] LABS: White Blood Count 0.6 K/mm3 (4.8-10.8)
[2021-10-14 16:51] LABS: Microscopic, Urine URINE MICROSCOPIC (MICROSCOPIC)
[2021-10-14 16:51] LABS: MANUAL DIFFERENTIAL MANUAL DIFFERENTIAL (MANUAL DIFF)
[2021-10-14 16:54] VITALS: BP 122/61; PULSE 107; RESP 18; O2SAT 97
[2021-10-14 16:55] LABS: Appearance,Urine CLEAR (Clear); Bilirubin,Urine Negative (Negative); Blood, Urine Negative (Negative); Color,Urine YELLOW (Yellow); Glucose,Urine (UA) 3+ (Negative); Ketones,Urine Negative (Negative); Leukocyte Esterase,Urine Negative (Negative); Nitrate,Urine Negative (Negative); Protein,Urine Negative (Negative); Urobilinogen,Urine 0.2 EU/dl (0.2)
[2021-10-14 17:01] LABS: Coronavirus 19, PCR Not Detected (NotDetected); Influenza A, PCR Not Detected (NotDetected); Influenza B, PCR Not Detected (NotDetected)
[2021-10-14 17:30] LABS: Bacteria,Urine Trace /lpf; WBC,Urine Occasional #/hpf (0-3)
--- NOTE | 2021-10-14 17:59 | HMH.EDGENADL ---
ED Disposition Clinical Impression: Neutropenic fever, Pancytopenia Metastatic primary lung cancer Qualifiers: Laterality: unspecified laterality Qualified Code(s): C34.90 - Malignant neoplasm of unspecified part of unspecified bronchus or lung Disposition: Xfer Short-Term Hosp Condition on Discharge: Serious Instructions: DI for Diarrhea and Traveler's Diarrhea -- Adult, DI for Diarrhea and Traveler's Diarrhea -- Child, DI for Nausea -- Adult, DI for Nausea -- Child Referrals: Jorden Roberts MD [Primary Care Provider] - - Critical Care Critical Care Time: No Attestation: On 10/14/21, the high probability of a clinically significant, sudden or life threatening deterioration of the following system(s) required my full and direct attention, intervention and personal management. The time I documented below is in addition to time spent performing reported procedures but includes the following listed in this critical care notation. Medical Decision Making - Daniel Inquiry Pt receiving controlled substance: No Vital Signs: 10/14/21 15:57 10/14/21 16:03 10/14/21 16:30 Temperature 98 F 102.7 F H Temperature Source Oral Oral Pulse Rate 116 H Pulse Rate [Radial] 114 H Respiratory Rate 22 18 Blood Pressure 139/73 Blood Pressure [Right Arm] 122/72 Blood Pressure Mean 89 Blood Pressure Mean [Right Arm] 88 Blood Pressure Position [Right Arm] Sitting 02 Sat by Pulse Oximetry 98 97 Oxygen Delivery Method Room Air 10/14/21 16:54 10/14/21 18:33 Temperature 101.6 F H Temperature Source Oral Pulse Rate 107 H Pulse Rate [Radial] Respiratory Rate 18 Blood Pressure 122/61 Blood Pressure [Right Arm] Blood Pressure Mean 79 Blood Pressure Mean [Right Arm] Blood Pressure Position [Right Arm] 02 Sat by Pulse Oximetry 97 Oxygen Delivery Method - Lab Data Lab Results 10/14/21 16:20: WBC 0.6 L*, RBC 2.44 L, Hgb 7.1 L, Hct 20.8 L*, MCV 85.4, MCH 29.0, MCHC 33.9, RDW 19.5 H, Plt Count 75 L, MPV 8.0, Neut % (Auto) 8.3 L, Lymph % (Auto) 87.4 H, [place] % (Auto) 0.9 L, Eos % (Auto) 2.2, Baso % (Auto) 1.2, Neut # (Auto) 0.1 L*, Lymph # (Auto) 0.5 L, [place] # (Auto) 0.0 L, Eos # (Auto) 0.0, Baso # (Auto) 0.0, Total Counted 50, Neutrophils % (Manual) 18 L, Band Neutrophils % 2.0, Lymphocytes % (Manual) 80 H, Platelet Estimate Moderate decrease, Poikilocytosis 1+, Anisocytosis 2+, Rouleaux 1+ 10/14/21 16:20: Sodium 132 L, Potassium 3.0 L, Chloride 98, Carbon Dioxide 24, Anion Gap 13.0, BUN 23 H, Creatinine 0.90, Estimated Creat Clear 54, Estimated GFR 62, Est GFR ( Amer) 75, Glucose 114 H, Calcium 9.1, Total Bilirubin 0.9, AST 23, ALT 20, Alkaline Phosphatase 130 H, Total Protein 6.9, Albumin 4.1, Globulin 2.8, Albumin/Globulin Ratio 1.5 10/14/21 16:20: Lactate 0.9 10/14/21 16:48: Urine Color Yellow, Urine Appearance Clear, Urine pH 5.0, Ur Specific [place] 1.010, Urine Protein Negative, Urine Glucose (UA) 3+, Urine Ketones Negative, Urine Blood Negative, Urine Nitrate Negative, Urine Bilirubin Negative, Urine Urobilinogen 0.2, Ur Leukocyte Esterase Negative, Urine RBC None, Urine WBC Occasional, Ur Squamous Epith Cells 3-5, Urine Bacteria Trace 10/14/21 16:56: SARS-CoV-2 (PCR) Not detected, Influenza A Untype (PCR) Not detected, Influenza Type B (PCR) Not detected Result diagrams: 10/14/21 16:20 10/14/21 16:20 Orders (Tests/Meds): ED MEDICATIONS Generic Name Dose Route Start Last Admin Trade Name Freq PRN Reason Stop Dose Admin Sodium Chloride 1,000 mls @ 999 mls/hr 10/14/21 16:15 10/14/21 16:34 Sod Chlor 0.9% 1000ml Bag IV 10/14/21 17:15 999 mls/hr .Q1H1M BRISA Administration Cefepime HCl 2 gm/ Sodium 100 mls @ 200 mls/hr 10/14/21 18:15 10/14/21 18:32 Chloride IV 10/28/21 18:14 200 mls/hr Q8H BRISA Administration Discontinued Medications Generic Name Dose Route Start Last Admin Trade Name Freq PRN Reason Stop Dose Admin Acetaminophen 650 mg 10/14/21 16:32
[2021-10-14 18:09] LABS: Lymphocytes % 80 % (10-50); Neutrophils % 18 % (42-76); Platelet Estimate Moderate Decrease; Poikilocytosis 1+; Rouleaux 1+; Total Cells Counted 50
[2021-10-14 18:10] LABS: Anisocytosis 2+
--- NOTE | 2021-10-14 18:11 | PC.NURSE ---
called [facility] for oncology
--- NOTE | 2021-10-14 18:26 | PC.NURSE ---
Dr Bob speaking with [facility]
--- NOTE | 2021-10-14 18:32 | PC.NURSE ---
Dr Mari accepting at
[2021-10-14 18:33] VITALS: TEMP 38.7
--- NOTE | 2021-10-14 18:58 | PC.NURSE ---
REPORT CALLED TO [facility]
[2021-10-14 19:53] VITALS: BP 122/56; PULSE 103; RESP 14; TEMP 36.8; O2SAT 95
== END 2021-10-14 19:59 | disposition short-term general hospital (02) ==
PROVIDERS: Emergency Provider Emergency Medicine; PCP Internal Medicine
DX: D70.9 Neutropenia, unspecified (principal); R50.81 Fever presenting with conditions classified elsewhere; C34.90 Malignant neoplasm of unspecified part of unspecified bronchus or lung; J44.9 Chronic obstructive pulmonary disease, unspecified; E11.9 Type 2 diabetes mellitus without complications; E78.5 Hyperlipidemia, unspecified; I10 Essential (primary) hypertension
CPT/HCPCS: 71045; 80053; 81001; 83605; 85007; 85025; 87040; 96360; 96375; 99284; C9803; J2405; U0003; U0005

== ENCOUNTER 2021-11-04 11:41 | Emergency (ER) | payer MEDICARE, MEDICAID, SELFPAY ==
--- NOTE | 2021-11-04 11:45 | HMH.EDGENADL ---
ED Disposition Clinical Impression: Diabetes mellitus Qualifiers: Diabetes mellitus type: type 2 Diabetes mellitus complication status: without complication Disposition: Home, Self-Care Condition on Discharge: Fair Instructions: Type 2 Diabetes Additional Instructions: Please continue taking all medications as prescribed. Follow-up with your primary care physician to have your glucometer checked. I suspect that it may be defective since it is reading high values but your blood glucose today was normal in the emergency department. Please return to the emergency department if you feel worse in any way. Referrals: Jorden Roberts MD [Primary Care Provider] - - Critical Care Critical Care Time: No Attestation: On , the high probability of a clinically significant, sudden or life threatening deterioration of the following system(s) required my full and direct attention, intervention and personal management. The time I documented below is in addition to time spent performing reported procedures but includes the following listed in this critical care notation. Medical Decision Making - Medical Records Medical records reviewed: Yes: I reviewed the patient's medical records. - Daniel Inquiry Pt receiving controlled substance: No Vital Signs: 11/04/21 11:56 Temperature 98.4 F Temperature Source Oral Pulse Rate [Left Radial] 80 Respiratory Rate 16 Blood Pressure [Right Arm] 127/68 Blood Pressure Mean [Right Arm] 87 02 Sat by Pulse Oximetry 99 Oxygen Delivery Method Nasal Cannula Oxygen Flow Rate (LPM) 3 - Lab Data Lab results reviewed: Yes: I reviewed the patient's lab results. Lab Results 11/04/21 11:54: POC Glucose 108 11/04/21 12:04: Urine Color Yellow, Urine Appearance Clear, Urine pH 6.0, Ur Specific [place] <= 1.005, Urine Protein Negative, Urine Glucose (UA) 2+, Urine Ketones Negative, Urine Blood Negative, Urine Nitrate Negative, Urine Bilirubin Negative, Urine Urobilinogen 0.2, Ur Leukocyte Esterase Negative, Urine RBC None, Urine WBC Occasional, Ur Squamous Epith Cells Occasional, Urine Bacteria Trace 11/04/21 12:09: Sodium 136, Potassium 3.9, Chloride 98, Carbon Dioxide 32 H, Anion Gap 9.9, BUN 9, Creatinine 0.90, Estimated Creat Clear 59, Estimated GFR 62, Est GFR ( Amer) 75, Glucose 117 H, Calcium 9.1, Total Bilirubin 0.6, AST 31, ALT 20, Alkaline Phosphatase 89, Total Protein 6.4, Albumin 3.7, Globulin 2.7, Albumin/Globulin Ratio 1.4 11/04/21 12:09: WBC 6.6, RBC 3.06 L, Hgb 9.1 L, Hct 30.3 L, MCV 99.0, MCH 29.7, MCHC 30.0 L, RDW 18.9 H, Plt Count 464 H, MPV 8.0, Neut % (Auto) 69.2, Lymph % (Auto) 20.5, [place] % (Auto) 8.5, Eos % (Auto) 0.3, Baso % (Auto) 1.4, Neut # (Auto) 4.6, Lymph # (Auto) 1.4, [place] # (Auto) 0.6, Eos # (Auto) 0.0, Baso # (Auto) 0.1 Result diagrams: 11/04/21 12:09 11/04/21 12:09 Medical Decision Narrative: The patient's work-up in the emergency department included a fingerstick blood glucose is well as a venous puncture blood glucose. None of the 2 were significantly elevated. I suspect that the patient's glucometer at home may be defective or need calibration. The patient has no signs of infection. Her white blood cell count is normal and her urinalysis does not show any signs of infection either. General Adult HPI - General Stated complaint: elevated sugar Time Seen by Provider: 11/04/21 11:45 Mode of Arrival: Family Vehicle Source of Information: Patient, Relative - History of Present Illness HPI narrative: The patient is a known diabetic on metformin and insulin. She has had hyperglycemia in the 400s the last few days. She has no other complaints. She has a history of lung cancer and is on home oxygen at 3 L/min. Onset (ago): day(s) (3) - Related Data Home Medications Medication Instructions Recorded Confirmed Atorvastatin Calcium [Lipitor 40mg 40 mg PO HS 06/22/18 09/27/21 Tablet*] Fluticasone/Salmeterol [Advair 1 inh IH BID 06/22/18 09/27/21 2
[2021-11-04 11:56] VITALS: BP 127/68; PULSE 80; RESP 16; TEMP 36.9; O2SAT 99; BMI 27.3
--- NOTE | 2021-11-04 12:00 | PC.NURSE ---
lab called for blood collection
[2021-11-04 12:01] LABS: POC Glucose,Bedside 108 (70-110)
[2021-11-04 12:07] LABS: Microscopic, Urine URINE MICROSCOPIC (MICROSCOPIC)
[2021-11-04 12:08] LABS: Appearance,Urine CLEAR (Clear); Bilirubin,Urine Negative (Negative); Blood, Urine Negative (Negative); Color,Urine YELLOW (Yellow); Glucose,Urine (UA) 2+ (Negative); Ketones,Urine Negative (Negative); Leukocyte Esterase,Urine Negative (Negative); Nitrate,Urine Negative (Negative); Protein,Urine Negative (Negative); Specific Gravity, Urine <= 1.005 (1.005-1.030); Urobilinogen,Urine 0.2 EU/dl (0.2)
--- NOTE | 2021-11-04 12:08 | PC.NURSE ---
lab at the bedside for blood collection.
--- NOTE | 2021-11-04 12:08 | PC.NURSE ---
UA sent to the lab
[2021-11-04 12:17] LABS: Basophils # 0.1 K/mm3 (0-0.2); Basophils % 1.4 % (0.1-2.0); Eosinophils % 0.3 % (0.1-12.0); Hematocrit 30.3 % (37.0-47.0); Hemoglobin 9.1 g/dL (12.2-16.2); Lymphocytes # 1.4 K/mm3 (0.7-4.5); Lymphocytes % 20.5 % (10-50); Mean Corpuscular Hemoglobin 29.7 pg (27.0-31.2); Monocytes # 0.6 K/mm3 (0.1-1.0); Monocytes % 8.5 % (1.7-9.3); Neutrophils # 4.6 K/mm3 (1.8-7.8); Neutrophils % 69.2 % (37.0-80.0); Platelet Count 464 K/mm3 (142-424); Red Blood Count 3.06 M/mm3 (4.20-5.40); Red Cell Distribution Width 18.9 % (11.5-17.5); White Blood Count 6.6 K/mm3 (4.8-10.8)
[2021-11-04 12:21] VITALS: BP 134/68; PULSE 81; O2SAT 99
[2021-11-04 12:21] LABS: Chloride 98 mmol/L (98-107); Potassium 3.9 mmoL/L (3.5-5.1); Sodium 136 mmol/L (136-145)
[2021-11-04 12:21] LABS: Bacteria,Urine Trace /lpf; Squamous Epithelial Cell,Urine Occasional #/hpf (0-5); WBC,Urine Occasional #/hpf (0-3)
[2021-11-04 12:23] LABS: Blood Urea Nitrogen 9 mg/dl (7-17); Creatinine Clearance Estimated 59 mL/min (50-200); Estimated Glomerular Filt Rate 62 ml/min (>60); GFR (African American) 75 ML/MIN (>60)
[2021-11-04 12:24] LABS: Alanine Aminotransferase 20 U/L (12-78); Albumin Level 3.7 g/dl (3.5-5.0); Albumin/Globulin Ratio 1.4 (1.1-1.8); Alkaline Phosphatase 89 U/L (38-126); Anion Gap 9.9 mEq/L (5-15); Aspartate Amino Transferase 31 U/L (14-36); Bilirubin,Total 0.6 mg/dl (0.2-1.3); Calcium 9.1 mg/dl (8.4-10.2); Carbon Dioxide 32 mmol/L (22.0-30.0); Globulin 2.7 g/dL (1.3-3.2); Glucose 117 mg/dl (74-100); Total Protein,Serum 6.4 g/dl (6.3-8.2)
[2021-11-04 12:31] VITALS: BP 149/77; PULSE 78; O2SAT 98
[2021-11-04 12:34] VITALS: BP 149/77; PULSE 78; RESP 16; TEMP 36.9; O2SAT 98
== END 2021-11-04 12:39 | disposition home or self-care (01) ==
PROVIDERS: Emergency Provider Emergency Medicine; PCP Internal Medicine
DX: E11.9 Type 2 diabetes mellitus without complications (principal); Z79.84 Long term (current) use of oral hypoglycemic drugs; Z79.4 Long term (current) use of insulin; Z85.118 Personal history of other malignant neoplasm of bronchus and lung; Z99.81 Dependence on supplemental oxygen; Z79.899 Other long term (current) drug therapy; Z88.8 Allergy status to other drugs, medicaments and biological substances; J44.9 Chronic obstructive pulmonary disease, unspecified; I25.10 Atherosclerotic heart disease of native coronary artery without angina pectoris; K21.9 Gastro-esophageal reflux disease without esophagitis; I10 Essential (primary) hypertension; E78.5 Hyperlipidemia, unspecified; M81.0 Age-related osteoporosis without current pathological fracture; M19.90 Unspecified osteoarthritis, unspecified site; D64.9 Anemia, unspecified
CPT/HCPCS: 36415; 80053; 81001; 82962; 85025; 99283

== ENCOUNTER → 2021-11-23 12:55 | Outpatient (CLI) | payer MEDICARE, OTHER, SELFPAY ==
[2021-11-23 14:02] LABS: Basophils # 0.1 K/mm3 (0-0.2); Basophils % 0.8 % (0.1-2.0); Eosinophils # 0.3 K/mm3 (0.0-0.4); Eosinophils % 4.6 % (0.1-12.0); Hemoglobin 10.1 g/dL (12.2-16.2); Lymphocytes # 1.5 K/mm3 (0.7-4.5); Lymphocytes % 23.8 % (10-50); Mean Corpuscular HGB Conc 30.6 g/dL (31.8-35.4); Mean Corpuscular Hemoglobin 31.3 pg (27.0-31.2); Mean Corpuscular Volume 102.4 fl (81-99); Mean Platelet Volume 8.8 fl (7.4-10.4); Monocytes # 0.5 K/mm3 (0.1-1.0); Monocytes % 7.4 % (1.7-9.3); Neutrophils % 63.4 % (37.0-80.0); Platelet Count 371 K/mm3 (142-424); Red Blood Count 3.23 M/mm3 (4.20-5.40); White Blood Count 6.3 K/mm3 (4.8-10.8)
[2021-11-23 14:41] LABS: Alanine Aminotransferase 16 U/L (12-78); Albumin/Globulin Ratio 1.7 (1.1-1.8); Alkaline Phosphatase 122 U/L (38-126); Aspartate Amino Transferase 24 U/L (14-36); Blood Urea Nitrogen 19 mg/dl (7-17); Calcium 9.5 mg/dl (8.4-10.2); Carbon Dioxide 26 mmol/L (22.0-30.0); Chloride 103 mmol/L (98-107); Cholesterol 152 mg/dl (140-200); Estimated Glomerular Filt Rate 62 ml/min (>60); GFR (African American) 75 ML/MIN (>60); Globulin 2.4 g/dL (1.3-3.2); Glucose 111 mg/dl (74-100); HDL Cholesterol 50 mg/dl (40-60); Sodium 138 mmol/L (136-145); Total Protein,Serum 6.4 g/dl (6.3-8.2); Triglycerides 184 mg/dl (30-150); VLDL Cholesterol 37 mg/dL (0-40)
[2021-11-23 14:44] LABS: Hemoglobin A1C 5.2 % (4.0-6.0)
[2021-11-23 14:53] LABS: Direct LDL Cholesterol 63.67 mg/dL (100-129)
[2021-11-23 14:54] LABS: Bilirubin,Total 0.1 mg/dl (0.2-1.3)
== END ==
PROVIDERS: PCP Internal Medicine; Visit Provider Internal Medicine
DX: C34.32 Malignant neoplasm of lower lobe, left bronchus or lung (principal); E11.9 Type 2 diabetes mellitus without complications; J44.9 Chronic obstructive pulmonary disease, unspecified; E78.5 Hyperlipidemia, unspecified; Z79.84 Long term (current) use of oral hypoglycemic drugs
CPT/HCPCS: 80053; 80061; 83036; 85025

== ENCOUNTER 2021-11-26 14:42 | Outpatient (CLI) | payer MEDICARE, OTHER, SELFPAY ==
[2021-11-26 14:50] VITALS: BP 152/74; PULSE 105; RESP 20; TEMP 36.8; O2SAT 98
== END 2021-11-26 14:57 | disposition home or self-care (01) ==
LOC: INF 14:44
PROVIDERS: PCP Nurse Practitioner; Visit Provider Internal Medicine
DX: L50.9 Urticaria, unspecified (principal)
CPT/HCPCS: 96372; J2357

== ENCOUNTER → 2022-02-01 10:19 | Outpatient (CLI) | payer MEDICARE, OTHER, SELFPAY ==
--- NOTE | 2022-02-01 10:26 | XR_ITS ---
FINAL REPORT CLINICAL HISTORY: RT HIP,PAIN,RT KNEE PAIN,S/P FALL FINDINGS: 3 views of the right knee were obtained. There is no acute fracture or dislocation. There are osteophytes along the superior patella. The joint spaces are intact. There is no soft tissue abnormality. IMPRESSION: No acute process. Reviewed, Interpreted and Dictated by Levi Kinney MD Transcribed by Denzel Medellin Authenticated and [facility]
--- NOTE | 2022-02-01 10:26 | XR_ITS ---
FINAL REPORT CLINICAL HISTORY: RT HIP,PAIN,RT KNEE PAIN,S/P FALL FINDINGS: 2 views of the right hip and an AP pelvis were obtained. There is no acute fracture or dislocation. The joint spaces are intact. There are no soft tissue abnormalities. IMPRESSION: No acute process. Reviewed, Interpreted and Dictated by Levi Kinney MD Transcribed by Denzel Medellin Authenticated and . [facility]
== END ==
PROVIDERS: PCP Internal Medicine; Visit Provider Internal Medicine
DX: M25.551 Pain in right hip (principal); M25.561 Pain in right knee; W19.XXXA Unspecified fall, initial encounter
CPT/HCPCS: 73502; 73562

== ENCOUNTER 2022-02-20 15:28 | Emergency (ER) | payer MEDICARE, OTHER, SELFPAY ==
[2022-02-20] VITALS (7 sets, daily range): BP systolic 119–149; BP diastolic 57–79; PULSE 83–91; RESP 16–18; TEMP 36.7–36.9; O2SAT 96–99
--- NOTE | 2022-02-20 15:45 | HMH.EDGENADL ---
Discharge Plan Disposition Patient Disposition: Home, Self-Care Condition: Good Prescriptions Prescriptions: New hydrocodone-acetaminophen 5-325 mg tablet 1 tab PO Q8H PRN (Reason: pain) Qty: 10 0RF No Action atorvastatin 40 MG tablet 40 mg PO HS fluticasone propion-salmeterol 28 PUFFS blister with device 1 inh IH BID metformin 500 MG tablet 500 mg PO BID aspirin 81 MG capsule 81 mg PO DAILY trazodone 50 MG tablet 50 mg PO HS cyanocobalamin (vitamin B-12) 500 MCG tablet 500 mcg PO DAILY ropinirole 0.25 MG tablet 0.25 mg PO HS lisinopril 5 MG tablet 5 mg PO DAILY etoposide 50 MG capsule 50 mg PO DAILY sennosides 8.6 MG tablet 2 tab PO DAILYP PRN (Reason: Constipation) polyethylene glycol 3350 17 GM powder in packet 17 gm PO DAILYP PRN (Reason: Constipation) albuterol sulfate 8.5 GM HFA aerosol inhaler 2 puff IH Q6HP PRN (Reason: Shortness Of Breath) cyclobenzaprine 5 MG tablet 5 mg PO TIDP PRN (Reason: muscle spasms) cefdinir 300 MG capsule 300 mg PO BID Qty: 10 0RF Referrals Follow up/Referrals: Provider,MD [facility] [Referring] - See instructions Harvinder Cisneros JR, MD [Physician] - See instructions Clinical Impressions Clinical Impression: Acute pain of right hip Instructions Patient Instructions: DI for Hip Pain, Hydrocodone Discharge ED Provider: Nabor [place] Adult HPI General Chief complaint: PAIN Stated complaint: Chronic Lt Hip Pain Time Seen by Provider: 02/20/22 15:45 Mode of Arrival: EMS Source of Information: Patient Limitations: No Limitations Description of Symptoms (Recalled from ER Triage Doc. by RN): Pt c/o pain in rt hip r/t current dx of bursitis History of Present Illness HPI narrative: 71-year-old female with history of hyperlipidemia, hypertension, COPD, type 2 diabetes, chronic right hip pain for which she had received injections which seem to help for period of time however over the last couple of weeks has had recurrent pain and subsequent falls x2 in the past few days due to weakness in the leg. She states pain significantly limits her ability to ambulate, denies any falls immediately preceding this visit, she states the pain is gotten worse. Denies any fevers, overlying erythema in the area. She has not had any prior surgeries on the hip. States her previous diagnosis of bursitis. She has been taking naproxen but states that it has been insufficient Related Data Home Medications Medication Instructions Recorded Confirmed atorvastatin 40 mg tablet 40 mg PO HS High cholesterol 06/22/18 09/27/21 fluticasone 250 mcg-salmeterol 50 1 inh IH BID COPD 06/22/18 09/27/21 mcg/dose blistr powdr for inhalation metformin 500 mg tablet 500 mg PO BID Diabetes 06/22/18 09/27/21 aspirin 81 mg capsule 81 mg PO DAILY heart health 07/06/21 09/27/21 albuterol sulfate 90 mcg/actuation 2 puff inhalation Q6HP PRN 09/27/21 09/27/21 aerosol inhaler Shortness Of Breath cyanocobalamin (vitamin B-12) 500 500 mcg PO DAILY Supplement 09/27/21 09/27/21 mcg tablet cyclobenzaprine 5 mg tablet 5 mg PO TIDP PRN muscle spasms 09/27/21 09/27/21 etoposide 50 mg capsule 50 mg PO DAILY oral chemo 09/27/21 09/27/21 lisinopril 5 mg tablet 5 mg PO DAILY High blood pressure 09/27/21 09/27/21 polyethylene glycol 3350 17 gram 17 gm PO DAILYP PRN Constipation 09/27/21 09/27/21 oral powder packet ropinirole 0.25 mg tablet 0.25 mg PO HS restless leg syndrome 09/27/21 09/27/21 sennosides 8.6 mg tablet 2 tab PO DAILYP PRN Constipation 09/27/21 09/27/21 trazodone 50 mg tablet 50 mg PO HS sleep 09/27/21 09/27/21 Previous Rx's Medication Instructions Recorded cefdinir 300 mg capsule 300 mg PO BID #10 caps 09/28/21 hydrocodone 5 mg-acetaminophen 325 1 tab PO Q8H PRN pain #10 tabs 02/20/22 mg tablet Allergies Allergy/AdvReac Type Severity Reaction Status Date / Time hydrochlorothiazide Allergy S
--- NOTE | 2022-02-20 15:48 | XR_ITS ---
FINAL REPORT CLINICAL HISTORY: right hip pain COMPARISON: 02/01/2022 FINDINGS: Right hip Two views were obtained. There is no acute fracture or dislocation. There are mild degenerative changes of both hips. No soft tissue abnormality is identified. IMPRESSION: No acute process. Reviewed, Interpreted and Dictated by Solo Skinner III, MD Transcribed by Susan Kramer Authenticated and [facility]
--- NOTE | 2022-02-20 18:00 | PC.NURSE ---
Pt still attempting to call for a ride home.
== END 2022-02-20 19:50 | disposition home or self-care (01) ==
PROVIDERS: Emergency Provider Emergency Medicine; PCP Internal Medicine
DX: M25.552 Pain in left hip (principal); R06.02 Shortness of breath; R53.1 Weakness; M62.838 Other muscle spasm; K59.00 Constipation, unspecified; M71.9 Bursopathy, unspecified; G89.29 Other chronic pain; J44.9 Chronic obstructive pulmonary disease, unspecified; Z79.51 Long term (current) use of inhaled steroids; Z79.82 Long term (current) use of aspirin; Z79.84 Long term (current) use of oral hypoglycemic drugs; Z79.899 Other long term (current) drug therapy; Z88.8 Allergy status to other drugs, medicaments and biological substances; Z87.891 Personal history of nicotine dependence
CPT/HCPCS: 73502; 96372; 99284

== ENCOUNTER 2022-02-26 17:44 | Emergency (ER) | payer MEDICARE, OTHER, SELFPAY ==
[2022-02-26 17:56] VITALS: BP 118/77; PULSE 88; RESP 18; TEMP 36.9; O2SAT 97; BMI 26.4
--- NOTE | 2022-02-26 18:04 | XR_ITS ---
PROCEDURE INFORMATION: Exam: XR Right Hip Exam date and time: 02/26/2022 6:07 PM Age: 71 years old Clinical indication: Pain and injury or trauma; Fall; Blunt trauma (contusions or hematomas); Hip pain; Right hip; Additional info: Right hip pain, fall TECHNIQUE: Imaging protocol: Radiologic exam of the Right hip. Views: 2 or 3 views hip with pelvis when performed. COMPARISON: CR XR HIP RT 2-3V W/PELVIS 02/20/2022 3:56 PM FINDINGS: Bones/joints: No acute fracture or dislocation. Soft tissues: Unremarkable. IMPRESSION: No acute fracture or dislocation. If the patient is unable to bear weight, consider CT to evaluate for an occult fracture.
--- NOTE | 2022-02-26 18:05 | HMH.EDGENADL ---
Discharge Plan Disposition Patient Disposition: Home, Self-Care Condition: Fair Prescriptions Prescriptions: No Action atorvastatin 40 MG tablet 40 mg PO HS fluticasone propion-salmeterol 28 PUFFS blister with device 1 inh inhalation BID metformin 500 MG tablet 500 mg PO BID aspirin 81 MG capsule 81 mg PO DAILY hydrocodone-acetaminophen 5-325 mg tablet 1 tab PO Q8H PRN (Reason: pain) Qty: 10 0RF trazodone 50 MG tablet 50 mg PO HS cyanocobalamin (vitamin B-12) 500 MCG tablet 500 mcg PO DAILY ropinirole 0.25 MG tablet 0.25 mg PO HS lisinopril 5 MG tablet 5 mg PO DAILY etoposide 50 MG capsule 50 mg PO DAILY sennosides 8.6 MG tablet 2 tab PO DAILYP PRN (Reason: Constipation) polyethylene glycol 3350 17 GM powder in packet 17 g PO DAILYP PRN (Reason: Constipation) albuterol sulfate 8.5 GM HFA aerosol inhaler 2 puff IH Q6HP PRN (Reason: Shortness Of Breath) cyclobenzaprine 5 MG tablet 5 mg PO TIDP PRN (Reason: muscle spasms) cefdinir 300 MG capsule 300 mg PO BID Qty: 10 0RF Referrals Follow up/Referrals: Jorden Roberts MD [Primary Care Provider] - See instructions Clinical Impressions Clinical Impression: Acute pain of right hip Instructions Patient Instructions: DI for Chronic Pain -- Adult, DI for Muscle Weakness Discharge ED Provider: Domenico Molina General Adult HPI General Chief complaint: Weakness Stated complaint: weakness Time Seen by Provider: 02/26/22 18:15 Mode of Arrival: EMS Source of Information: Patient Limitations: No Limitations Description of Symptoms (Recalled from ER Triage Doc. by RN): Pt c/o weakness in legs and inability to ambulate. Pt states that she had a steroid injection today in her rt hip. History of Present Illness HPI narrative: Patient is a 71-year-old female with a past medical history of chronic right hip pain, COPD, lung cancer, diabetes who presents with right hip pain. She states that she actually had a injection for greater trochanteric hip bursitis today and says that she is continued to have persistent right hip pain. She says it feels like it always feels. She was unable to get up her stairs to her apartment today. She says that she is also intermittently been falling. She says that she did not fall today but was having a hard time ambulating due to the pain so she decided to come in for evaluation. Denies any numbness or tingling. Did not hit her head. Related Data Home Medications Medication Instructions Recorded Confirmed atorvastatin 40 mg tablet 40 mg PO HS High cholesterol 06/22/18 02/26/22 fluticasone 250 mcg-salmeterol 50 1 inh inhalation BID COPD 06/22/18 02/26/22 mcg/dose blistr powdr for inhalation metformin 500 mg tablet 500 mg PO BID Diabetes 06/22/18 02/26/22 aspirin 81 mg capsule 81 mg PO DAILY heart health 07/06/21 02/26/22 albuterol sulfate 90 mcg/actuation 2 puff inhalation Q6HP PRN 09/27/21 02/26/22 aerosol inhaler Shortness Of Breath cyanocobalamin (vitamin B-12) 500 500 mcg PO DAILY Supplement 09/27/21 02/26/22 mcg tablet cyclobenzaprine 5 mg tablet 5 mg PO TIDP PRN muscle spasms 09/27/21 02/26/22 etoposide 50 mg capsule 50 mg PO DAILY oral chemo 09/27/21 02/26/22 lisinopril 5 mg tablet 5 mg PO DAILY High blood pressure 09/27/21 02/26/22 polyethylene glycol 3350 17 gram 17 g PO DAILYP PRN Constipation 09/27/21 02/26/22 oral powder packet ropinirole 0.25 mg tablet 0.25 mg PO HS restless leg syndrome 09/27/21 02/26/22 sennosides 8.6 mg tablet 2 tab PO DAILYP PRN Constipation 09/27/21 02/26/22 trazodone 50 mg tablet 50 mg PO HS sleep 09/27/21 02/26/22 Previous Rx's Medication Instructions Recorded cefdinir 300 mg capsule 300 mg PO BID #10 caps 09/28/21 hydrocodone 5 mg-acetaminophen 325 1 tab PO Q8H PRN pain #10 tabs 02/20/22 mg tablet Allergies Allergy/AdvReac Type Severity Reaction [facility]
[2022-02-26 19:00] VITALS: BP 148/73; PULSE 76; O2SAT 97
[2022-02-26 19:30] VITALS: BP 142/70; PULSE 74; O2SAT 98
--- NOTE | 2022-02-26 19:36 | PC.NURSE ---
SPOKE WITH NEIGHBOR THAT LIVES ACROSS THE [place] AND SAID PT IS NOT ABLE TO CARE FOR HERSELF , SHE HAS A SISTER IN LAW THAT LIVES WITH HER THAT CANT CARE FOR HER.
[2022-02-26 20:00] VITALS: BP 148/84; PULSE 77; O2SAT 98
[2022-02-26 20:30] VITALS: BP 155/81; PULSE 75; O2SAT 98
--- NOTE | 2022-02-26 20:30 | PC.NURSE ---
Verified living situation with patient. Pt states that at home she ambulates with a walker and a wheel chair. Pt had mentioned earlier that she crawls around at home but states that that is not accurate. States her sister in law lives at home with her and can assist her with her adl's but cannot lift her due to her heart condition.
--- NOTE | 2022-02-26 21:11 | PC.NURSE ---
Pt ambulatory to door and back to bed with use of walker
--- NOTE | 2022-02-26 21:11 | PC.NURSE ---
Spoke with Theodora she advised that she did not drive and would be unable to pick pt up and take her home
--- NOTE | 2022-02-26 21:13 | PC.NURSE ---
Attempted to call pt [facility]ush[facility] corey, did not get an answer
--- NOTE | 2022-02-26 21:45 | PC.NURSE ---
Contacted [facility] regarding transporting patient. According to [facility], patient is unable to be transported by them because she is technically ambulatory.
--- NOTE | 2022-02-26 21:48 | PC.NURSE ---
Attempted to call S[facility] two more times, no answer. Theodora called back and advised that she had no one to call to come pick her up. Spoke with dispatch they advised they would try to see if an officer could come pick her up.
--- NOTE | 2022-02-26 22:16 | PC.NURSE ---
Patient requested assistance in covering up herself. I asked the patient how she covers up at home and she said that her sister in law helps her but she is in fact able to cover up her own legs.
--- NOTE | 2022-02-26 22:17 | PC.NURSE ---
[facility] dispatch called and advised that both of their units are on calls currently but when they finish with the call they will notify us regarding their ability to transport patient.
[2022-02-26 23:52] VITALS: BP 152/80; PULSE 78; RESP 18; TEMP 36.6; O2SAT 98
--- NOTE | 2022-02-26 23:55 | PC.NURSE ---
PD here to assist in taking home.
== END 2022-02-26 23:56 | disposition home or self-care (01) ==
PROVIDERS: Emergency Provider Student in an Organized Health Care Education/Training Program; PCP Internal Medicine
DX: M25.551 Pain in right hip (principal); R06.02 Shortness of breath; R53.1 Weakness; K59.00 Constipation, unspecified; G89.29 Other chronic pain; M62.838 Other muscle spasm; H26.9 Unspecified cataract; J44.9 Chronic obstructive pulmonary disease, unspecified; Z79.82 Long term (current) use of aspirin; Z79.1 Long term (current) use of non-steroidal anti-inflammatories (NSAID); Z79.84 Long term (current) use of oral hypoglycemic drugs; Z79.51 Long term (current) use of inhaled steroids; Z79.899 Other long term (current) drug therapy; Z85.118 Personal history of other malignant neoplasm of bronchus and lung; Z87.891 Personal history of nicotine dependence
CPT/HCPCS: 73502; 99283

== ENCOUNTER 2022-03-02 16:51 | Emergency (ER) | payer MEDICARE, OTHER, SELFPAY ==
[2022-03-02 16:51] VITALS: BP 149/87; PULSE 86; RESP 16; TEMP 37; O2SAT 98; BMI 26.4
[2022-03-02 17:00] VITALS: BP 168/85; PULSE 81; O2SAT 97
[2022-03-02 17:30] VITALS: BP 170/92; PULSE 83; O2SAT 97
--- NOTE | 2022-03-02 17:33 | HMH.EDGENADL ---
Discharge Plan Disposition Patient Disposition: Home, Self-Care Condition: Good Prescriptions Prescriptions: New hydrocodone-acetaminophen 5-325 mg tablet 1 tab PO Q6H PRN (Reason: pain) Qty: 10 0RF No Action atorvastatin 40 MG tablet 40 mg PO HS fluticasone propion-salmeterol 28 PUFFS blister with device 1 inh inhalation BID metformin 500 MG tablet 500 mg PO BID aspirin 81 MG capsule 81 mg PO DAILY hydrocodone-acetaminophen 5-325 mg tablet 1 tab PO Q8H PRN (Reason: pain) Qty: 10 0RF trazodone 50 MG tablet 50 mg PO HS cyanocobalamin (vitamin B-12) 500 MCG tablet 500 mcg PO DAILY ropinirole 0.25 MG tablet 0.25 mg PO HS lisinopril 5 MG tablet 5 mg PO DAILY etoposide 50 MG capsule 50 mg PO DAILY sennosides 8.6 MG tablet 2 tab PO DAILYP PRN (Reason: Constipation) polyethylene glycol 3350 17 GM powder in packet 17 g PO DAILYP PRN (Reason: Constipation) albuterol sulfate 8.5 GM HFA aerosol inhaler 2 puff IH Q6HP PRN (Reason: Shortness Of Breath) cyclobenzaprine 5 MG tablet 5 mg PO TIDP PRN (Reason: muscle spasms) cefdinir 300 MG capsule 300 mg PO BID Qty: 10 0RF Referrals Follow up/Referrals: Provider,Referral, MD [Primary Care Provider] - See instructions Activity Restrictions/Add. Instructions Additional Instructions/Restrictions: [place] as needed for pain. See Dr. Roberts on Friday as scheduled for further care and further pain medication if needed. Clinical Impressions Clinical Impression: Right hip pain Discharge ED Provider: Jose Bob General Adult HPI General Chief complaint: PAIN Stated complaint: Hip Pain Time Seen by Provider: 03/02/22 17:23 Mode of Arrival: EMS Source of Information: Patient Limitations: No Limitations Description of Symptoms (Recalled from ER Triage Doc. by RN): Pt advises she has been having right hip pain for the past couple of weeks. She has seen her PCP and ortho for the pain and had multiple x-rays. She reports she has had injections for the hip pain. She also had a prescription for pain medication and ran out of that yesterday. Advises she is just continuing to have pain in the hip. History of Present Illness HPI narrative: StrainPatient is brought in by ambulance for right hip pain. She says that she has been having hip pain for about 3 months, she does not recall any precipitating injury. She has been seen by her primary care provider and says that she received 2 injections in the hip from Dr. Roberts. She has been to the emergency department a couple of times. She says that she has had 3 sets of x-rays that have not disclosed a significant problem. She has followed up with orthopedist Dr. Deutsch in the office and has had another injection into her hip. She says that today she was trying to go to the bathroom. She got on the toilet and then my hip went out when she was unable to get back up and walk. She says that she normally has to get around with a walker and also has a wheelchair at home. She says her sister pushes her in the wheelchair and then she can stand and use her walker to get onto the toilet. She received a prescription for pain medication on her last emergency department visit, but is now out of that medication. She has a lung cancer that was diagnosed in July. She is undergoing chemotherapy. She has had radiation. She says that pain. She says that she is scheduled for a brain CT on Friday. She has no history of metastases to her knowledge. She receives her treatment in [place]. Related Data Home Medications Medication Instructions Recorded Confirmed atorvastatin 40 mg tablet 40 mg PO HS High cholesterol 06/22/18 02/26/22 fluticasone 250 mcg-salmeterol 50 1 inh inhalation BID COPD 06/22/18 02/26/22 mcg/dose blistr powdr for inhalation metformin 500 mg tablet 500 mg PO BID Diabetes 06/22/18 02/26/22 aspirin 81 mg capsule 81 mg PO DAILY
--- NOTE | 2022-03-02 17:42 | CT_ITS ---
PROCEDURE INFORMATION: Exam: CT Right Lower Extremity Without Contrast, Hip Exam date and time: 03/02/2022 5:46 PM Age: 71 years old Clinical indication: Pain; Hip; Right; Additional info: Pain , fall 1 week ago , unable to put weight TECHNIQUE: Imaging protocol: CT of the Right lower extremity without contrast was performed. Exam focused on the hip. Radiation optimization: All CT scans at this facility use at least one of these dose optimization techniques: automated exposure control; mA and/or kV adjustment per patient size (includes targeted exams where dose is matched to clinical indication); or iterative reconstruction. COMPARISON: CR XR HIP RT 2-3V W/PELVIS 02/26/2022 6:07 PM FINDINGS: Bones/joints: Normal. No acute fracture or dislocation. Soft tissues: Normal. IMPRESSION: Unremarkable CT.
[2022-03-02 18:00] VITALS: BP 162/82; PULSE 81; O2SAT 98
[2022-03-02 18:30] VITALS: BP 163/82; PULSE 77; O2SAT 98
[2022-03-02 18:32] LABS: Basophils # 0.1 K/mm3 (0-0.2); Basophils % 1.8 % (0.1-2.0); Eosinophils # 0.3 K/mm3 (0.0-0.4); Eosinophils % 4.2 % (0.1-12.0); Hematocrit 36.3 % (37.0-47.0); Hemoglobin 12.2 g/dL (12.2-16.2); Lymphocytes # 1.3 K/mm3 (0.7-4.5); Lymphocytes % 20.7 % (10-50); Mean Corpuscular HGB Conc 33.5 g/dL (31.8-35.4); Mean Corpuscular Hemoglobin 30.5 pg (27.0-31.2); Mean Corpuscular Volume 90.9 fl (81-99); Mean Platelet Volume 8.2 fl (7.4-10.4); Monocytes # 0.4 K/mm3 (0.1-1.0); Neutrophils # 4.3 K/mm3 (1.8-7.8); Neutrophils % 67.3 % (37.0-80.0); Platelet Count 368 K/mm3 (142-424); Red Cell Distribution Width 14.3 % (11.5-17.5); White Blood Count 6.3 K/mm3 (4.8-10.8)
[2022-03-02 18:39] LABS: Anion Gap 17.5 mEq/L (5-15); Blood Urea Nitrogen 23 mg/dl (7-17); Calcium 9.4 mg/dl (8.4-10.2); Carbon Dioxide 25 mmol/L (22.0-30.0); Chloride 102 mmol/L (98-107); Creatinine Clearance Estimated 59 mL/min (50-200); Estimated Glomerular Filt Rate 62 ml/min (>60); GFR (African American) 75 ML/MIN (>60); Glucose 147 mg/dl (74-100); Potassium 5.5 mmoL/L (3.5-5.1); Sodium 139 mmol/L (136-145)
[2022-03-02 19:38] VITALS: BP 160/81; PULSE 78; RESP 18; TEMP 36.6; O2SAT 99
== END 2022-03-02 19:52 | disposition home or self-care (01) ==
PROVIDERS: Emergency Provider Emergency Medicine
DX: M25.551 Pain in right hip (principal); R06.02 Shortness of breath; K59.00 Constipation, unspecified; J44.9 Chronic obstructive pulmonary disease, unspecified; F17.210 Nicotine dependence, cigarettes, uncomplicated; Z79.51 Long term (current) use of inhaled steroids; Z79.82 Long term (current) use of aspirin; Z79.84 Long term (current) use of oral hypoglycemic drugs; Z79.899 Other long term (current) drug therapy; Z88.8 Allergy status to other drugs, medicaments and biological substances; Z92.3 Personal history of irradiation; Z99.3 Dependence on wheelchair
CPT/HCPCS: 72170; 73502; 73552; 73560; 73600; 73700; 80048; 80053; 85025; 99285; C9803; U0003; U0005

== ENCOUNTER 2022-03-02 20:54 | Observation (INO) | payer MEDICARE, OTHER, SELFPAY ==
[2022-03-02 20:54] VITALS: BP 131/68; PULSE 84; RESP 16; TEMP 37.1; O2SAT 96; BMI 29.6
--- NOTE | 2022-03-02 21:00 | PC.NURSE ---
Dr. Norman at [facility]
--- NOTE | 2022-03-02 21:26 | XR_ITS ---
PROCEDURE INFORMATION: Exam: XR Right Hip Exam date and time: 03/02/2022 9:33 PM Age: 71 years old Clinical indication: Injury or trauma; Fall; Blunt trauma (contusions or hematomas); Right; Hip and pelvic region; Additional info: Fall, rle pain TECHNIQUE: Imaging protocol: Radiologic exam of the Right hip. Views: 2 or 3 views hip with pelvis when performed. COMPARISON: CR XR PELVIS 1-2V 03/02/2022 9:33 PM FINDINGS: Bones/joints: Unremarkable. No acute fracture. Soft tissues: Unremarkable. IMPRESSION: No acute findings.
--- NOTE | 2022-03-02 21:26 | XR_ITS ---
PROCEDURE INFORMATION: Exam: XR Right Femur Exam date and time: 03/02/2022 9:35 PM Age: 71 years old Clinical indication: Injury or trauma; Fall; Blunt trauma; Thigh or upper leg; Right; Additional info: Fall, rle distal femur pain TECHNIQUE: Imaging protocol: Radiologic exam of the Right femur. Views: 2 views. COMPARISON: CT HIP RT WO CON 03/02/2022 5:46 PM FINDINGS: Bones/joints: Unremarkable. No acute fracture. Soft tissues: Unremarkable. IMPRESSION: No acute findings.
--- NOTE | 2022-03-02 21:26 | XR_ITS ---
PROCEDURE INFORMATION: Exam: XR Right Knee Exam date and time: 03/02/2022 9:36 PM Age: 71 years old Clinical indication: Injury or trauma; Fall; Blunt trauma; Knee; Right; Additional info: Fall, rle distal femur pain TECHNIQUE: Imaging protocol: Radiologic exam of the Right knee. Views: 1 or 2 views. COMPARISON: CT HIP RT WO CON 03/02/2022 5:46 PM FINDINGS: Bones/joints: Normal. Soft tissues: Normal. IMPRESSION: No acute findings.
--- NOTE | 2022-03-02 21:26 | XR_ITS ---
PROCEDURE INFORMATION: Exam: XR Pelvis Exam date and time: 03/02/2022 9:33 PM Age: 71 years old Clinical indication: Injury or trauma; Fall; Blunt trauma (contusions or hematomas); Right; Pelvic region; Additional info: 1 view after fall TECHNIQUE: Imaging protocol: Radiologic exam of the pelvis. Views: 1 or 2 view. COMPARISON: CR XR HIP RT 2-3V W/PELVIS 02/26/2022 6:07 PM FINDINGS: Bones/joints: Unremarkable. No acute fracture. Soft tissues: Unremarkable. IMPRESSION: No acute findings.
--- NOTE | 2022-03-02 21:30 | HMH.EDGENADL ---
Discharge Plan Disposition Patient Disposition: Admitted As Inpatient Condition: Fair Chief Complaint: PAIN Prescriptions Prescriptions: No Action atorvastatin 40 MG tablet 40 mg PO HS fluticasone propion-salmeterol 28 PUFFS blister with device 1 inh inhalation BID metformin 500 MG tablet 500 mg PO BID aspirin 81 MG capsule 81 mg PO DAILY hydrocodone-acetaminophen 5-325 mg tablet 1 tab PO Q8H PRN (Reason: pain) Qty: 10 0RF trazodone 50 MG tablet 50 mg PO HS cyanocobalamin (vitamin B-12) 500 MCG tablet 500 mcg PO DAILY ropinirole 0.25 MG tablet 0.25 mg PO HS lisinopril 5 MG tablet 5 mg PO DAILY etoposide 50 MG capsule 50 mg PO DAILY sennosides 8.6 MG tablet 2 tab PO DAILYP PRN (Reason: Constipation) polyethylene glycol 3350 17 GM powder in packet 17 g PO DAILYP PRN (Reason: Constipation) albuterol sulfate 8.5 GM HFA aerosol inhaler 2 puff IH Q6HP PRN (Reason: Shortness Of Breath) cyclobenzaprine 5 MG tablet 5 mg PO TIDP PRN (Reason: muscle spasms) cefdinir 300 MG capsule 300 mg PO BID Qty: 10 0RF hydrocodone-acetaminophen 5-325 mg tablet 1 tab PO Q6H PRN (Reason: pain) Qty: 10 0RF Referrals Follow up/Referrals: Jorden Roberts MD [Primary Care Provider] - See instructions Clinical Impressions Clinical Impression: Physical deconditioning, Acute pain of right thigh Discharge ED Provider: Jason Norman General Adult HPI General Chief complaint: PAIN Stated complaint: Weakness Time Seen by Provider: 03/02/22 21:00 Mode of Arrival: EMS Limitations: No Limitations Description of Symptoms (Recalled from ER Triage Doc. by RN): pt complains of pain in the right thigh after another fall History of Present Illness HPI narrative: This is a 71-year-old female with history of chronic debility, COPD, type 2 diabetes, lung cancer currently undergoing chemo and the radiation therapy, recent history of multiple falls presenting with fall. Patient was in the emergency department approximately 1 hour prior to arrival, received a ride home from EMS, was unable to ambulate well enough to make it into her second story apartment. On initial evaluation, patient agitated, yelling, complaining of right knee pain. Patient states that she fell in front of her door and landed on her right leg. Denies striking her head, loss of consciousness. She states it was a mechanical fall, denies dizziness, chest pain, shortness of breath, vision changes, neurologic deficits, confusion, or any other concerning history. She says I just feel weak like I always do. Currently complaining of 5 out of 10 right knee pain that does not radiate. Related Data Home Medications Medication Instructions Recorded Confirmed atorvastatin 40 mg tablet 40 mg PO HS High cholesterol 06/22/18 02/26/22 fluticasone 250 mcg-salmeterol 50 1 inh inhalation BID COPD 06/22/18 02/26/22 mcg/dose blistr powdr for inhalation metformin 500 mg tablet 500 mg PO BID Diabetes 06/22/18 02/26/22 aspirin 81 mg capsule 81 mg PO DAILY heart health 07/06/21 02/26/22 albuterol sulfate 90 mcg/actuation 2 puff inhalation Q6HP PRN 09/27/21 02/26/22 aerosol inhaler Shortness Of Breath cyanocobalamin (vitamin B-12) 500 500 mcg PO DAILY Supplement 09/27/21 02/26/22 mcg tablet cyclobenzaprine 5 mg tablet 5 mg PO TIDP PRN muscle spasms 09/27/21 02/26/22 etoposide 50 mg capsule 50 mg PO DAILY oral chemo 09/27/21 02/26/22 lisinopril 5 mg tablet 5 mg PO DAILY High blood pressure 09/27/21 02/26/22 polyethylene glycol 3350 17 gram 17 g PO DAILYP PRN Constipation 09/27/21 02/26/22 oral powder packet ropinirole 0.25 mg tablet 0.25 mg PO HS restless leg syndrome 09/27/21 02/26/22 sennosides 8.6 mg tablet 2 tab PO DAILYP PRN Constipation 09/27/21 02/26/22 trazodone 50 mg tablet 50 mg PO HS sleep 09/27/21 02/26/22 Previous Rx's Medication Instructions Recorded cefdinir 300 mg capsule
[2022-03-02 22:30] VITALS: BP 145/59; PULSE 80; O2SAT 98
--- NOTE | 2022-03-02 22:57 | PC.NURSE ---
Pt given warm blanket. No needs or complaints voiced at this time.
[2022-03-02 23:00] VITALS: BP 152/64; PULSE 83; O2SAT 96
--- NOTE | 2022-03-02 23:04 | XR_ITS ---
PROCEDURE INFORMATION: Exam: XR Right Ankle Exam date and time: 03/02/2022 11:34 PM Age: 71 years old Clinical indication: Injury or trauma; Fall; Blunt trauma; Ankle; Right; Additional info: Fall with pain TECHNIQUE: Imaging protocol: Radiologic exam of the Right ankle. Views: 1 or 2 views. COMPARISON: CT HIP RT WO CON 03/02/2022 5:46 PM FINDINGS: Bones/joints: Nondisplaced fracture of the lateral malleolus. Soft tissues: Normal. IMPRESSION: Nondisplaced fracture of the lateral malleolus.
--- NOTE | 2022-03-02 23:07 | EXP.HP ---
History of Present Illness *Admission Date: 03/02/22 *Reason for visit:: Falls, Functional Decline *History of present illness: Ms. Richelle Oh is a 71-year-old female with a past medical history of lung cancer, currently undergoing chemotherapy and radiation at [facility], last treatments 1 month ago, T2DM, COPD, HTN and Hyperlipidemia. The patient presented to the ER today secondary to falls. She was previously seen earlier in the ER today due to fall and was discharged to home and returned because she fell again at home. Over the last 10 days the patient has been to our ER four times due to falls. She has had imaging of the Bilateral Pelvis, Right Knees, Hip, Right Femur and has had a CT of the Hip that were all negative. On evaluation of the patient in the ER she is complaining of right ankle pain and the inability to bear weight. Imaging of the right ankle will be ordered and if normal PT will be asked to see the patient. The patient reports that she lives with her [id number] who brings her meals and helps with taking her to the bathroom, she is wishing to return to her prior living situation, but reports currently she is unable to do so because she cannot assist her [id number] with walking due to the inability to bear weight. The patient will be admitted with initial impression: Falls and Functional Decline. Further imaging will be obtained and if negative, PT will be consulted to see. The plan of care was discussed with the patient in length and detail at bedside in the ER. The patient verbalized understanding and agreement with the plan of care. [facility] Medical History (Updated 03/03/22 @ 00:38 by Marcia Watkins RN) Cataract COPD (chronic obstructive pulmonary disease) Lung cancer Surgical History (Updated 03/03/22 @ 00:38 by Marcia Watkins RN) H/O shoulder surgery H/O: hysterectomy History of appendectomy History of cholecystectomy Family History (Updated 03/03/22 @ 00:39 by Marcia Watkins RN) No significant family history Social History (Updated 03/03/22 @ 00:36 by Marcia Watkins RN) Smoking Status: Current every day smoker tobacco type: cigarettes packs per day: 1 second hand exposure: No alcohol intake: never substance use type: denies use current occupational status: retired and disabled Travel in the last 8 weeks: None household members: family housing: house current occupation: disability heart/copd/back problems current occupational exposures/hazards: No caffeine: Yes Review of Systems Review of Systems Review of systems:: pertinent systems reviewed and negative unless documented below Constitutional Constitutional: Reports frequent falls, Reports lethargy, Reports malaise and Reports weakness Eyes Eyes: Reports system reviewed and no additional complaints, except as documented ENT Ears, Nose, Mouth, and Throat: Reports system reviewed and no additional complaints, except as documented *Cardiovascular Cardiovascular: Reports system reviewed and no additional complaints, except as documented *Respiratory Respiratory: Reports system reviewed and no additional complaints, except as documented *Gastrointestinal Gastrointestinal: Reports system reviewed and no additional complaints, except as documented *Genitourinary Genitourinary: Reports system reviewed and no additional complaints, except as documented *Musculoskeletal Musculoskeletal: Reports abnormal gait, Reports arthralgias, Reports limited range of motion and Reports muscle weakness Integumentary/Breasts Skin/Breast: Reports system reviewed and no additional complaints, except as documented *Neurologic Neurologic: Reports abnormal gait, Reports frequent falls and Reports weakness Psychiatric Psychiatric: Reports system reviewed and no additional complaints, except as documented Endocrine Endocrine: Reports system reviewed and no additional complaints, except as documented Hematologi
[2022-03-02 23:21] LABS: Coronavirus 19, PCR Not Detected (NotDetected); Influenza A, PCR Not Detected (NotDetected); Influenza B, PCR Not Detected (NotDetected)
--- NOTE | 2022-03-02 23:23 | PC.NURSE ---
RAD at BS for XRAY
[2022-03-03 00:06] LABS: Basophils # 0.1 K/mm3 (0-0.2); Basophils % 1.1 % (0.1-2.0); Eosinophils # 0.2 K/mm3 (0.0-0.4); Eosinophils % 2.7 % (0.1-12.0); Hematocrit 36.7 % (37.0-47.0); Hemoglobin 11.9 g/dL (12.2-16.2); Lymphocytes # 1.3 K/mm3 (0.7-4.5); Lymphocytes % 17.5 % (10-50); Mean Corpuscular HGB Conc 32.5 g/dL (31.8-35.4); Mean Corpuscular Hemoglobin 29.6 pg (27.0-31.2); Mean Corpuscular Volume 91.1 fl (81-99); Monocytes # 0.5 K/mm3 (0.1-1.0); Monocytes % 6.6 % (1.7-9.3); Neutrophils # 5.2 K/mm3 (1.8-7.8); Neutrophils % 72.1 % (37.0-80.0); Platelet Count 415 K/mm3 (142-424); Red Blood Count 4.03 M/mm3 (4.20-5.40); Red Cell Distribution Width 14.3 % (11.5-17.5); White Blood Count 7.2 K/mm3 (4.8-10.8)
[2022-03-03 00:07] LABS: Alanine Aminotransferase 22 U/L (12-78); Albumin/Globulin Ratio 1.4 (1.1-1.8); Alkaline Phosphatase 153 U/L (38-126); Aspartate Amino Transferase 28 U/L (14-36); Bilirubin,Total 0.9 mg/dl (0.2-1.3); Blood Urea Nitrogen 23 mg/dl (7-17); Calcium 9.3 mg/dl (8.4-10.2); Carbon Dioxide 25 mmol/L (22.0-30.0); Chloride 103 mmol/L (98-107); Creatinine Clearance Estimated 66 mL/min (50-200); Estimated Glomerular Filt Rate 62 ml/min (>60); GFR (African American) 75 ML/MIN (>60); Globulin 2.9 g/dL (1.3-3.2); Glucose 155 mg/dl (74-100); Sodium 139 mmol/L (136-145); Total Protein,Serum 6.9 g/dl (6.3-8.2)
[2022-03-03 00:08] VITALS: BP 150/62; PULSE 82; RESP 18; TEMP 36.6; O2SAT 98
[2022-03-03 00:19] VITALS: BP 149/80; PULSE 100; RESP 17; TEMP 36.8; O2SAT 97; BMI 24.5
--- NOTE | 2022-03-03 00:19 | PC.NURSE ---
PT ARRIVED VIA WHEEL CHAIR AT THIS TIME
--- NOTE | 2022-03-03 00:26 | PC.NURSE ---
admitted pt to 215 from ER
[2022-03-03 04:00] VITALS: BP 124/76; PULSE 79; RESP 16; TEMP 36.6; O2SAT 94
[2022-03-03 05:00] VITALS: BMI 24.5
[2022-03-03 07:21] LABS: Chloride 104 mmol/L (98-107); Potassium 4.6 mmoL/L (3.5-5.1); Sodium 139 mmol/L (136-145)
[2022-03-03 07:22] LABS: Basophils % 0.6 % (0.1-2.0); Eosinophils # 0.2 K/mm3 (0.0-0.4); Eosinophils % 2.9 % (0.1-12.0); Hematocrit 34.4 % (37.0-47.0); Hemoglobin 11.5 g/dL (12.2-16.2); Lymphocytes # 1.4 K/mm3 (0.7-4.5); Lymphocytes % 20.5 % (10-50); Mean Corpuscular HGB Conc 33.5 g/dL (31.8-35.4); Mean Corpuscular Hemoglobin 30.2 pg (27.0-31.2); Mean Corpuscular Volume 90.3 fl (81-99); Mean Platelet Volume 7.7 fl (7.4-10.4); Monocytes # 0.4 K/mm3 (0.1-1.0); Monocytes % 6.2 % (1.7-9.3); Neutrophils # 4.6 K/mm3 (1.8-7.8); Neutrophils % 69.7 % (37.0-80.0); Platelet Count 346 K/mm3 (142-424); Red Blood Count 3.81 M/mm3 (4.20-5.40); Red Cell Distribution Width 14.4 % (11.5-17.5); White Blood Count 6.6 K/mm3 (4.8-10.8)
[2022-03-03 07:24] LABS: Alanine Aminotransferase 21 U/L (12-78); Albumin Level 3.9 g/dl (3.5-5.0); Albumin/Globulin Ratio 1.4 (1.1-1.8); Alkaline Phosphatase 125 U/L (38-126); Anion Gap 13.6 mEq/L (5-15); Aspartate Amino Transferase 28 U/L (14-36); Bilirubin,Total 0.7 mg/dl (0.2-1.3); Blood Urea Nitrogen 22 mg/dl (7-17); Carbon Dioxide 26 mmol/L (22.0-30.0); Creatinine Clearance Estimated 54 mL/min (50-200); Estimated Glomerular Filt Rate 62 ml/min (>60); GFR (African American) 75 ML/MIN (>60); Globulin 2.8 g/dL (1.3-3.2); Glucose 124 mg/dl (74-100); Total Protein,Serum 6.7 g/dl (6.3-8.2)
--- NOTE | 2022-03-03 07:32 | EXP.ACUTE.PN ---
Subjective *Date: 03/03/22 *Time: 11:02 Interval history: Patient complaining of ankle pain this morning. Finding it hard to bear weight on her right ankle. Informed her that she had an ankle fracture (and lateral malleolus) noted on imaging. Additionally is having difficulty urinating. Sat on bedside commode but only had about 100 cc of urine output. Concern for urinary retention. Denies any cough, shortness of breath, nausea, vomiting, fevers. Has been more frail and weak at home. Falling frequently over the past days to weeks. On review of chart, noted to have lost greater than 15 kg in the past 9 to 12 months. Medical Exam Vital signs and Labs for Last 24 Hours: Vital Signs Temp Pulse Pulse Resp BP BP Pulse Ox 03/03/22 04:00 97.9 F 79 16 124/76 94 L 03/03/22 00:19 98.2 F 100 H 17 149/80 H 97 03/03/22 00:08 98 F 82 18 150/62 H 03/02/22 23:00 83 152/64 H 96 03/02/22 22:30 80 145/59 H 98 03/02/22 20:54 98.8 F 84 16 131/68 96 Intake and Output 03/02/22 03/02/22 03/03/22 15:59 23:59 07:59 Other: Weight 80.739 kg 66.735 kg Patient Weight 03/03/22 23:59 Weight 66.735 kg Laboratory Results - last 24 hr 03/02/22 22:23: SARS-CoV-2 (PCR) Not detected, Influenza A Untype (PCR) Not detected, Influenza Type B (PCR) Not detected 03/02/22 23:52: WBC 7.2, RBC 4.03 L, Hgb 11.9 L, Hct 36.7 L, MCV 91.1, MCH 29.6, MCHC 32.5, RDW 14.3, Plt Count 415, MPV 8.0, Neut % (Auto) 72.1, Lymph % (Auto) 17.5, Dukes % (Auto) 6.6, Eos % (Auto) 2.7, Baso % (Auto) 1.1, Neut # (Auto) 5.2, Lymph # (Auto) 1.3, Dukes # (Auto) 0.5, Eos # (Auto) 0.2, Baso # (Auto) 0.1 03/02/22 23:52: Sodium 139, Potassium 5.0, Chloride 103, Carbon Dioxide 25, Anion Gap 16.0 H, BUN 23 H, Creatinine 0.90, Estimated Creat Clear 66, Estimated GFR 62, Est GFR ( Amer) 75, Glucose 155 H, Calcium 9.3, Total Bilirubin 0.9, AST 28, ALT 22, Alkaline Phosphatase 153 H, Total Protein 6.9, Albumin 4.0, Globulin 2.9, Albumin/Globulin Ratio 1.4 03/03/22 07:08: WBC 6.6, RBC 3.81 L, Hgb 11.5 L, Hct 34.4 L, MCV 90.3, MCH 30.2, MCHC 33.5, RDW 14.4, Plt Count 346, MPV 7.7, Neut % (Auto) 69.7, Lymph % (Auto) 20.5, Dukes % (Auto) 6.2, Eos % (Auto) 2.9, Baso % (Auto) 0.6, Neut # (Auto) 4.6, Lymph # (Auto) 1.4, Dukes # (Auto) 0.4, Eos # (Auto) 0.2, Baso # (Auto) 0.0 03/03/22 07:08: Sodium 139, Potassium 4.6, Chloride 104, Carbon Dioxide 26, Anion Gap 13.6, BUN 22 H, Creatinine 0.90, Estimated Creat Clear 54, Estimated GFR 62, Est GFR ( Amer) 75, Glucose 124 H, Calcium 9.0, Total Bilirubin 0.7, AST 28, ALT 21, Alkaline Phosphatase 125, Total Protein 6.7, Albumin 3.9, Globulin 2.8, Albumin/Globulin Ratio 1.4 I & O for Labs for Last 24 Hours: Intake & Output 02/28/22 03/01/22 03/02/22 03/03/22 23:59 23:59 23:59 23:59 Weight 80.739 kg 66.735 kg Constitutional: Present no acute distress and chronically ill appearing Head: Present atraumatic and normocephalic ENT: Present normal exam Comment:: alopecia Neck: Present normal inspection Respiratory: Present CTA bilaterally and normal respiratory effort; Absent rhonchi or crackles Cardiac: Present Reg Rate and Rhythm GI: Present tenderness (suprapubic) and normal bowel sounds Extremities: Present full ROM; Absent normal inspection Comment:: right ankle slightly swollen, TTP along lateral malleolus Skin: Present intact; Absent erythema Neuro: Present Grossly Intact, alert, awake, oriented x 3 and moves all extremities Assessment and Plan *Assessment and plan (1) Fracture of lateral malleolus of right ankle: Status: Acute Category: Medical Code(s): S82.61XA - Displaced fracture of lateral malleolus of right fibula, initial encounter for closed fracture (2) Frequent falls: Status: Acute Category: Medical Code(s): R29.6 - Repeated falls (3) Functional assessment declined: Status: Acute Category: Medical Code(s): Z53.20 - P
[2022-03-03 07:46] VITALS: BP 120/82; PULSE 80; RESP 18; TEMP 37.2; O2SAT 98
[2022-03-03 08:14] LABS: POC Glucose,Bedside 131 (70-110)
--- NOTE | 2022-03-03 09:18 | HMH.PHAINT1 ---
Pharmacy Intervention Comments: MEDICATION RECONCILIATION COMPLETED ON PATIENT USING EXTERNAL FILL HISTORY FROM PHARMACY. -LADAN RALPH, HANNAD
--- NOTE | 2022-03-03 10:11 | PC.NURSE ---
Pt unable to void and feels low abd pressure upon palpation. I&O cath reveals 790mL of urine. Specimen sent to lab per Dr. Frias.
[2022-03-03 11:07] LABS: Microscopic, Urine URINE MICROSCOPIC (MICROSCOPIC)
[2022-03-03 11:12] LABS: Appearance,Urine CLEAR (Clear); Bilirubin,Urine Negative (Negative); Blood, Urine Negative (Negative); Color,Urine YELLOW (Yellow); Glucose,Urine (UA) Negative (Negative); Ketones,Urine TRACE (Negative); Leukocyte Esterase,Urine Negative (Negative); Nitrate,Urine Negative (Negative); Protein,Urine Negative (Negative); Specific Gravity, Urine 1.025 (1.005-1.030); Urobilinogen,Urine 0.2 EU/dl (0.2)
[2022-03-03 11:30] LABS: POC Glucose,Bedside 139 (70-110)
[2022-03-03 11:31] LABS: Squamous Epithelial Cell,Urine Occasional #/hpf (0-5)
--- NOTE | 2022-03-03 13:13 | DIET.NUTRFU ---
Consulted for wt loss, supplements started will interview for meal intake and handout for high protein suggestions
[2022-03-03 16:17] VITALS: BP 163/83; PULSE 96; RESP 18; TEMP 36.8; O2SAT 98
[2022-03-03 16:24] LABS: POC Glucose,Bedside 187 (70-110)
[2022-03-03 20:00] VITALS: BP 156/77; PULSE 99; RESP 20; TEMP 36.7; O2SAT 98
[2022-03-04 03:52] VITALS: BP 129/71; PULSE 87; RESP 18; TEMP 37.1; O2SAT 97; BMI 24.7
[2022-03-04 06:05] LABS: Basophils % 0.6 % (0.1-2.0); Eosinophils # 0.2 K/mm3 (0.0-0.4); Eosinophils % 3.2 % (0.1-12.0); Hematocrit 31.5 % (37.0-47.0); Hemoglobin 10.4 g/dL (12.2-16.2); Lymphocytes # 1.4 K/mm3 (0.7-4.5); Lymphocytes % 25.3 % (10-50); Mean Corpuscular Hemoglobin 30.4 pg (27.0-31.2); Mean Corpuscular Volume 92.1 fl (81-99); Mean Platelet Volume 7.5 fl (7.4-10.4); Monocytes # 0.4 K/mm3 (0.1-1.0); Monocytes % 6.5 % (1.7-9.3); Neutrophils # 3.6 K/mm3 (1.8-7.8); Neutrophils % 64.4 % (37.0-80.0); Platelet Count 339 K/mm3 (142-424); Red Blood Count 3.42 M/mm3 (4.20-5.40); Red Cell Distribution Width 14.6 % (11.5-17.5); White Blood Count 5.6 K/mm3 (4.8-10.8)
[2022-03-04 06:06] LABS: POC Glucose,Bedside 139 (70-110)
[2022-03-04 06:11] LABS: Chloride 105 mmol/L (98-107); Potassium 4.3 mmoL/L (3.5-5.1); Sodium 139 mmol/L (136-145)
[2022-03-04 06:14] LABS: Anion Gap 14.3 mEq/L (5-15); Blood Urea Nitrogen 22 mg/dl (7-17); Calcium 8.5 mg/dl (8.4-10.2); Carbon Dioxide 24 mmol/L (22.0-30.0); Creatinine Clearance Estimated 55 mL/min (50-200); Estimated Glomerular Filt Rate 62 ml/min (>60); GFR (African American) 75 ML/MIN (>60); Glucose 134 mg/dl (74-100)
[2022-03-04 07:03] LABS: POC Glucose,Bedside 146 (70-110)
[2022-03-04 08:00] VITALS: BP 133/72; PULSE 95; RESP 16; TEMP 36.6; O2SAT 95; O2SAT 98
--- NOTE | 2022-03-04 08:44 | HMH.PTEV ---
Physical Therapy Evaluation Rehab PT IP Evaluation Start: 03/04/22 07:00 Freq: ONCE Status: Active Protocol: Document 03/04/22 08:39 PWGILMA (Rec: 03/04/22 08:44 PWGILMA [id number]) Subjective/History History History This is the initial IP PT evaluation for Richelle Oh. Pt is a 71 y/o female admitted to [facility] s/p frequent falls at home. Pt's most recent fall caused her to be unable to bear weight on RLE. Xray showed non-displaced lateral malleolar fx. Pt lives w/ sister in law, has PMH significant for cancer and chemotherapy Subjective Subjective Pt c/o pain in R ankle w/ mvmnt Rehab PT IP Eval Objective Appearance Patient Behavior Appropriate,Cooperative Patient Orientation Place,Name,Birthday,Year Difficulty following instructions none Speech Pattern Clear,Appropriate Ambulation Patient Able to Ambulate No Balance Ability to Arise Unable Sitting Balance Steady, safe Standing Balance Unsteady Dynamic Sitting Balance Ability Good Dynamic Standing Balance Ability Poor Transfers Bed Transfer Ability Supervision/Stand by,Contact Guard/Hand Hold Sit to Stand Bed Transfer Ability Maximum x 1 (75% assist) Rehab PT IP prob,goals,plan Problems Date of Evaluation: 03/04/22 PT IP Problems Bed Mobility,Transfers,Gait, Balance,Self care,Safety Rehab Potential Rehab Potential Fair Equipment Needs Assistive Devices Rolling / Wheeled Walker Plan PT Intervention Plan Bed Mobility,Transfers,Gait, Balance,Self care,Safety, Therapeutic Exercise PT Plan Frequency BID Duration LOS Discharge Goals Bed Transfer Ability Supervision/Stand by,Contact Guard/Hand Hold Sit to Stand Chair Transfer Ability Maximum x 1 (75% assist) Ambulation Assistive Device Rolling Walker Ambulation Distance (feet) 2 Discharge Plan PT Discharge Plan Due to pt's PMH, inability to bear weight and assistance needed pt will benefit from skilled therapy while in [facility]. Pt will continue to need skilled t
[2022-03-04 09:26] VITALS: BMI 24.7
--- NOTE | 2022-03-04 09:44 | HMH.OTEV ---
OT Inpatient Evaluation Rehab OT IP Evaluation Start: 03/04/22 07:00 Freq: ONCE Status: Complete Protocol: Document 03/04/22 09:37 [email or web address] (Rec: 03/04/22 09:43 [facility] [id number]) Rehab OT IP Assessment Subjective History Pt oriented x 3 on arrival. Pt agreeable to engage in therapy session. Pt was admitted via ED on 03/02/22 due to a fall at home with right ankle fx. Prior to being in the hospital, pt lived in an apartment with her sister in law. Pt claims she was independent with all ADLs such as dressing, bathing, and feeding. However, pt was dependent upon her sister in law to complete all IADLs such as cooking, cleaning, laundry , etc. Pt did use a walker during ambulation and transfers. Pt does have steps to get into her apartment. Pt has a past medical history of: Cataract COPD (chronic obstructive pulmonary disease) Lung cancer Subjective I know I need a little help. Pt resting in bed on arrival. Pt went from supine to sitting at eob with min assist . Pt stood on left leg to complete a stand pivot transfer with max assist x 2. Pt sat down in chair with max assist x 2. Pt was left with call hilario, chair alarm, and all other needs in reach. Objective Patient Orientation Person,Place,Birthday Upper Extremity Gross ROM Min Limitation <25% Shoulder ROM Limitations Muscle Weakness Elbow ROM Limitations Muscle Weakness Wrist Limitations of Range of Motion Muscle Weakness Bed Mobility bed mobility - supine/sit Assist Level Minimal x 1 (25% assist) Transfer Training Sit/Stand/Pivot Transfer Assist Level Maximum x 2 (75% assist) Chair Transfer Ability Maximum x 2 (75% assist) Chair Transfer Technique Stand Pivot Rehab OT IP prob,goals,plan Problems Date of
--- NOTE | 2022-03-04 09:52 | SW/DCPLANNER ---
Addendum entered by Sosa Winfield 03/06/22 08:43: This patient has been approved per Pamela to discharge to [facility] level of care today. COVID swab will need to be collected prior to discharge. Addendum entered by Sosa Hubbadr 03/06/22 07:36: Pamela martinez/ [facility] started a precert on this patient yesterday 03/06/22. Addendum entered by Sosa Winfield 03/05/22 15:14: Pamela martinez/ [facility] has called back expressing interest in this patient. Pamela stated that she would only accept this patient pending insurance approval and if patient is agreeable to put chemo treatments on hold. Patient did voice that she would be willing to put treatments on hold at this time. All updated patient information has been faxed to Pamela. Pamela cell [phone] Addendum entered by Sosa Winfield 03/05/22 13:19: Lynn martinez/ [facility] denied this patient. Patient information has been faxed to Esther martinez/ [facility]. Addendum entered by Sosa Winfield 03/05/22 11:35: Lynn martinez/ [facility] is currently reviewing patient information. Addendum entered by Sosa Winfield 03/04/22 13:00: Patient information has also been faxed to Lynn martinez/ [facility] due to [facility] not returning my phone call. Patient is also agreeable to placement at [facility] in [facility] if [facility] can not accept. Original Note: I spoke with this patient regarding plans once medically stable for discharge. PT/OT evaluted this patient and recommended placement. Patient stated that she has was at [facility] in [place] a couple months ago and would prefer to return there at time of discharge. I have left a DORIS martinez/Marybeth at [facility] and patient information has been faxed. I will follow up with Marybeth once information is reviewed. Patient is medically stable for discharge. [facility] fax: [phone]
--- NOTE | 2022-03-04 10:44 | EXP.ACUTE.PN ---
Subjective *Date: 03/04/22 *Time: 10:44 Interval history: Patient complaining of ankle pain this morning. Otherwise feeling okay. Still not able to bear weight on her right ankle. Requiring full assist to get up using just her left leg. PT and OT evaluated, patient will need placement for rehab and is unsafe to go back home in the care of her sister. See their notes for full details. Continues to complain of lower abdominal discomfort, has been having significant difficulty urinating with retention noted. This morning had over 500 cc on bladder scan after attempting to void. Has required 2 in and out caths over the past [address] Gutiérrez this morning. Would benefit from further evaluation for urinary retention in the outpatient setting. Denies any cough, shortness of breath, nausea, vomiting, fevers. Medical Exam Vital signs and Labs for Last 24 Hours: Vital Signs Temp Pulse Resp BP Pulse Ox 03/04/22 08:00 97.9 F 95 H 16 133/72 98 03/04/22 03:52 98.8 F 87 18 129/71 97 03/03/22 20:00 98.1 F 99 H 20 156/77 H 98 03/03/22 16:17 98.3 F 96 H 18 163/83 H 98 Intake and Output 03/03/22 03/04/22 03/04/22 23:59 07:59 15:59 Intake Total 360 / 960 0 / 360 360 / 360 Output Total 450 / 450 Balance 360 / 70 -450 / -90 360 / -90 Intake: Intake, Oral Amount 360 / 960 0 / 360 360 / 360 Output: Output, Urine Amount 450 / 450 Other: Number of Unmeasured Voids 0 Weight 67.495 kg 67.49 kg Patient Weight 03/04/22 23:59 Weight 67.49 kg Laboratory Results - last 24 hr 03/03/22 10:00: Urine Color Yellow, Urine Appearance Clear, Urine pH 6.0, Ur Specific [place] 1.025, Urine Protein Negative, Urine Glucose (UA) Negative, Urine Ketones Trace, Urine Blood Negative, Urine Nitrate Negative, Urine Bilirubin Negative, Urine Urobilinogen 0.2, Ur Leukocyte Esterase Negative, Ur Squamous Epith Cells Occasional 03/03/22 11:23: POC Glucose 139 H 03/03/22 16:18: POC Glucose 187 H 03/03/22 20:13: POC Glucose 146 H 03/04/22 05:30: WBC 5.6, RBC 3.42 L, Hgb 10.4 L, Hct 31.5 L, MCV 92.1, MCH 30.4, MCHC 33.0, RDW 14.6, Plt Count 339, MPV 7.5, Neut % (Auto) 64.4, Lymph % (Auto) 25.3, [place] % (Auto) 6.5, Eos % (Auto) 3.2, Baso % (Auto) 0.6, Neut # (Auto) 3.6, Lymph # (Auto) 1.4, [place] # (Auto) 0.4, Eos # (Auto) 0.2, Baso # (Auto) 0.0 03/04/22 05:30: Sodium 139, Potassium 4.3, Chloride 105, Carbon Dioxide 24, Anion Gap 14.3, BUN 22 H, Creatinine 0.90, Estimated Creat Clear 55, Estimated GFR 62, Est GFR ( Amer) 75, Glucose 134 H, Calcium 8.5 03/04/22 05:59: POC Glucose 139 H I & O for Labs for Last 24 Hours: Intake & Output 03/01/22 03/02/22 03/03/22 03/04/22 23:59 23:59 23:59 23:59 Intake Total 960 / 960 360 / 360 Output Total 890 / 890 450 / 450 Balance 70 / 70 -90 / -90 Weight 80.739 kg 66.735 kg 67.49 kg Constitutional: Present no acute distress and chronically ill appearing Head: Present atraumatic and normocephalic ENT: Present normal exam Comment:: alopecia, loss of periorbital fat, edentulous Neck: Present normal inspection Respiratory: Present CTA bilaterally and normal respiratory effort; Absent rhonchi or crackles Cardiac: Present Reg Rate and Rhythm GI: Present tenderness (suprapubic) and normal bowel sounds Extremities: Present full ROM; Absent normal inspection Comment:: right ankle slightly swollen, TTP along lateral malleolus Skin: Present intact; Absent erythema Neuro: Present Grossly Intact, alert, awake, oriented x 3 and moves all extremities Assessment and Plan *Assessment and plan (1) Fracture of lateral malleolus of right ankle: Status: Acute Category: Medical Code(s): S82.61XA - Displaced fracture of lateral malleolus of right fibula, initial encounter for closed fracture (2) Severe protein-calorie malnutrition: Status: Acute Category: Medical Code(s): E43 - Unspecified severe protein-calorie malnutrition (3) Freque
--- NOTE | 2022-03-04 10:52 | EXP.ORTH.CON ---
Documented by User: SKIP Estes 03/04/22 11:11 History of Present Illness *Admission Date: 03/02/22 *Reason for visit:: Right ankle fracture *History of present illness: Ms. Oh is a 71-year-old female patient admitted to the inpatient service following multiple mechanical falls at home and functional decline. Over the weekend she reported right ankle pain and an inability to bear weight on the right lower extremity; subsequent x-ray demonstrated a nondisplaced lateral malleolus fracture. This morning she is sitting comfortably in a chair at the bedside. She continues report right ankle pain that she states is well controlled with as needed pain medication and rest. No history of any distal tingling/numbness. She denies any antecedent ankle pain. At baseline she reports that she lives with her [id number] who assists her with her activities of daily living. Her past medical history is significant for lung cancer - currently undergoing chemotherapy and radiation at [facility], diabetes mellitus type 2, COPD, hypertension, and hyperlipidemia. She denies any other symptoms or concerns at this time. [facility] Medical History (Updated 03/04/22 @ 11:01 by SKIP Estes) Cataract COPD (chronic obstructive pulmonary disease) Lung cancer Surgical History (Updated 03/03/22 @ 00:38 by Marcia Watkins RN) H/O shoulder surgery H/O: hysterectomy History of appendectomy History of cholecystectomy Family History (Updated 03/03/22 @ 00:39 by Marcia Watkins RN) Other No significant family history Social History (Updated 03/03/22 @ 00:36 by Marcia Watkins RN) Smoking Status: Current every day smoker tobacco type: cigarettes packs per day: 1 second hand exposure: No alcohol intake: never substance use type: denies use current occupational status: retired and disabled Travel in the last 8 weeks: None household members: family housing: house current occupation: disability heart/copd/back problems current occupational exposures/hazards: No caffeine: Yes Review of Systems Constitutional Constitutional: Reports frequent falls and Reports weakness *Musculoskeletal Musculoskeletal: Reports abnormal gait *Neurologic Neurologic: Reports abnormal gait, Reports frequent falls and Reports weakness Meds Home Medications and Allergies Home Medications Medication Instructions Recorded Confirmed Type atorvastatin 40 mg tablet 40 mg PO HS High cholesterol 06/22/18 03/03/22 History fluticasone 250 mcg-salmeterol 50 1 inh inhalation BID COPD 06/22/18 03/03/22 History mcg/dose blistr powdr for inhalation metformin 500 mg tablet 500 mg PO BID Diabetes 06/22/18 03/03/22 History albuterol sulfate 90 mcg/actuation 2 puff inhalation Q6HP PRN 09/27/21 03/03/22 History aerosol inhaler Shortness Of Breath cyanocobalamin (vitamin B-12) 500 500 mcg PO DAILY Supplement 09/27/21 03/03/22 History mcg tablet polyethylene glycol 3350 17 gram 17 g PO DAILYP PRN Constipation 09/27/21 03/03/22 History oral powder packet ropinirole 0.25 mg tablet 0.25 mg PO HS restless leg syndrome 09/27/21 03/03/22 History sennosides 8.6 mg tablet 17.2 tab PO DAILYP PRN Constipation 09/27/21 03/03/22 History hydrocodone 5 mg-acetaminophen 325 1 tab PO Q6H PRN pain #10 tabs 03/02/22 03/03/22 Rx mg tablet aspirin 81 mg tablet,delayed 81 mg PO DAILY HEART HEALTH 03/03/22 03/03/22 History release hydroxyzine pamoate 25 mg capsule 25 mg PO TIDP PRN Anxiety 03/03/22 03/03/22 History metoprolol succinate 25 mg 25 mg PO DAILY Hypertension 03/03/22 03/03/22 History tablet,extended release 24 hr naproxen 500 mg tablet 500 mg PO BID Pain 03/03/22 03/03/22 History potassium chloride 20 mEq 20 meq PO DAILY Supplement 03/03/22 03/03/22 History tablet,extended release(part/cryst) raloxifene 60 mg tablet 60 mg PO DAILY Osteoporosis 03/03/22 03/03/22 History New Prescriptions to Start Pres
[2022-03-04 11:04] LABS: Microscopic, Urine URINE MICROSCOPIC (MICROSCOPIC)
[2022-03-04 11:13] LABS: Appearance,Urine CLOUDY (Clear); Bilirubin,Urine Negative (Negative); Blood, Urine Negative (Negative); Color,Urine YELLOW (Yellow); Glucose,Urine (UA) Negative (Negative); Ketones,Urine Negative (Negative); Leukocyte Esterase,Urine 2+ (Negative); Nitrate,Urine Negative (Negative); Protein,Urine Negative (Negative); Specific Gravity, Urine 1.025 (1.005-1.030); Urobilinogen,Urine 0.2 EU/dl (0.2)
[2022-03-04 12:14] LABS: POC Glucose,Bedside 183 (70-110)
[2022-03-04 12:25] LABS: Bacteria,Urine 2+ /lpf; RBC,Urine Occasional #/hpf (0-3); Squamous Epithelial Cell,Urine Occasional #/hpf (0-5)
--- NOTE | 2022-03-04 13:06 | PC.NURSE ---
Patient continued to be unable to void, FC inserted using sterile technique, 600ml of yellow clear urine noted immediately after insertion.
[2022-03-04 16:00] VITALS: BP 118/64; PULSE 104; RESP 16; TEMP 37.3; O2SAT 95
[2022-03-04 16:14] LABS: POC Glucose,Bedside 191 (70-110)
[2022-03-04 19:55] VITALS: BP 132/71; PULSE 105; RESP 19; TEMP 37.2; O2SAT 94
[2022-03-04 20:18] LABS: POC Glucose,Bedside 279 (70-110)
[2022-03-05 04:00] VITALS: BP 139/60; PULSE 91; RESP 18; TEMP 37; O2SAT 96
[2022-03-05 05:00] VITALS: BMI 24.7
[2022-03-05 06:35] LABS: Chloride 105 mmol/L (98-107); Potassium 4.7 mmoL/L (3.5-5.1); Sodium 138 mmol/L (136-145)
[2022-03-05 06:38] LABS: Anion Gap 11.7 mEq/L (5-15); Blood Urea Nitrogen 26 mg/dl (7-17); Calcium 8.5 mg/dl (8.4-10.2); Carbon Dioxide 26 mmol/L (22.0-30.0); Creatinine Clearance Estimated 55 mL/min (50-200); Estimated Glomerular Filt Rate 71 ml/min (>60); GFR (African American) 86 ML/MIN (>60); Glucose 136 mg/dl (74-100); Magnesium 1.9 mg/dl (1.6-2.3)
[2022-03-05 07:42] VITALS: BP 149/76; PULSE 106; RESP 16; TEMP 36.9; O2SAT 98
[2022-03-05 08:00] VITALS: PULSE 106; O2SAT 98
[2022-03-05 11:27] LABS: POC Glucose,Bedside 159 (70-110)
[2022-03-05 11:27] LABS: POC Glucose,Bedside 156 (70-110)
[2022-03-05 15:38] VITALS: BP 153/76; PULSE 102; RESP 17; TEMP 36.8; O2SAT 98
[2022-03-05 16:51] LABS: POC Glucose,Bedside 205 (70-110)
--- NOTE | 2022-03-05 17:16 | PC.NURSE ---
pt was able to tolerate being up to the chair for approx 1 hour then requested to go back to bed. pt endorsed discomfort from the walking boot. boot removed when pt returned to bed. lungs are clear, bowel sounds are active in all quads. nad noted. pt is alert and oriented x 4. pt appears excited about the possibility of being discharged to rehab facility near her family.
--- NOTE | 2022-03-05 17:43 | EXP.PN ---
Subjective *Date: 03/05/22 *Time: 17:43 Interval history: Date of service March 05, 2022 The patient reports no acute events overnight. She reports that she lives with her [id number] and with her right ankle fracture she is concerned with returning to her home environment. I am accompanied by several members of the MDR team for the patient's evaluation. The patient reports adequate pain control. Nursing staff reports that she remains afebrile with stable vital signs and saturating appropriately on room air. She is awaiting the delivery of her orthopedic boot. Case management is assisting with next site of care for rehab and strengthening. Exam Data for Last 24 hours Vital signs and Labs for Last 24 Hours: Temp Pulse Resp BP Pulse Ox 98.3 F 102 H 17 153/76 H 98 03/05/22 15:38 03/05/22 15:38 03/05/22 15:38 03/05/22 15:38 03/05/22 15:38 Laboratory Results - last 24 hr 03/04/22 20:08: POC Glucose 279 H 03/05/22 05:56: Sodium 138, Potassium 4.7, Chloride 105, Carbon Dioxide 26, Anion Gap 11.7, BUN 26 H, Creatinine 0.80, Estimated Creat Clear 55, Estimated GFR 71, Est GFR ( Amer) 86, Glucose 136 H, Calcium 8.5, Magnesium 1.9 03/05/22 06:06: POC Glucose 156 H 03/05/22 11:16: POC Glucose 159 H 03/05/22 16:36: POC Glucose 205 H I & O for Last 24 hours: Intake & Output 03/02/22 03/03/22 03/04/22 03/05/22 23:59 23:59 23:59 23:59 Intake Total 960 / 960 1200 / 1200 540 / 540 Output Total 890 / 890 1025 / 1025 900 / 900 Balance 70 / 70 175 / 175 -360 / -360 Weight 80.739 kg 66.735 kg 67.49 kg 67.245 kg Microbiology Reports for the Last 24 Hours: Microbiology 03/04/22 10:42 Urine,Catheterized Urine Culture - Preliminary NO GROWTH AFTER 24 HOURS Constitutional Constitutional: no acute distress and cooperative *Routine HEENT Exam Head: Present normocephalic and atraumatic Eye: Present EOMI and PERRL ENT: Present mucous membranes moist *Routine Neck Exam Neck: Present supple and full ROM; Absent JVD *Routine Respiratory Exam Respiratory: Present rhonchi and normal respiratory effort *Routine Cardiovascular Exam Cardiovascular: Present RRR, Normal S1 and Normal S2 *Routine Abdominal Exam Abdominal: Present soft and normoactive bowel sounds; Absent tenderness *Routine Extremities Exam Extremities: Present edema and tenderness (Right lower extremity) *Routine Skin Exam Skin: Present intact and dry; Absent rash *Routine Neurological Exam Neurological: Present alert, oriented X3, moving all extremities, vision grossly intact, hearing grossly intact and normal speech; Absent motor deficit Routine Psychiatric Exam Psychiatric: Present normal thought process, cooperative and good insight Assessment and Plan *Assessment and plan (1) Fracture of lateral malleolus of right ankle: Status: Acute Qualifiers: Encounter type: initial encounter Fracture type: closed Fracture alignment: nondisplaced Qualified Code(s): S82.64XA - Nondisplaced fracture of lateral malleolus of right fibula, initial encounter for closed fracture Category: Medical Code(s): S82.61XA - Displaced fracture of lateral malleolus of right fibula, initial encounter for closed fracture (2) Frequent falls: Status: Acute Category: Medical Code(s): R29.6 - Repeated falls (3) Functional assessment declined: Status: Acute Category: Medical Code(s): Z53.20 - Procedure and treatment not carried out because of patient's decision for unspecified reasons (4) Lung cancer: Problem details: metastatic Status: Chronic Qualifiers: Laterality: unspecified laterality Lung location: unspecified part of lung Qualified Code(s): C34.90 - Malignant neoplasm of unspecified part of unspecified bronchus or lung Category: Medical Code(s): C34.90 - Malignant neoplasm of unspecified part of unspecified bronchus or lung
[2022-03-05 19:48] VITALS: BP 123/68; PULSE 111; RESP 20; TEMP 36.9; O2SAT 96
--- NOTE | 2022-03-06 03:00 | PC.NURSE ---
bladder scanned pt, scanner says greater than 435mL in bladder; in and out cathed pt and obtained 575mL concentrated UOP
[2022-03-06 03:30] VITALS: BP 149/78; PULSE 101; RESP 18; TEMP 36.7; O2SAT 96
[2022-03-06 05:00] VITALS: BMI 24.5
[2022-03-06 06:03] LABS: POC Glucose,Bedside 145 (70-110)
[2022-03-06 07:57] VITALS: BP 128/74; PULSE 102; RESP 17; TEMP 36.7; O2SAT 97
[2022-03-06 08:57] LABS: Coronavirus 19, PCR Not Detected (NotDetected); Influenza A, PCR Not Detected (NotDetected); Influenza B, PCR Not Detected (NotDetected)
--- NOTE | 2022-03-06 11:02 | EXP.DC.SUM ---
General Admission date:: 03/03/22 Discharge date: 03/06/22 HPI HPI HPI: Ms. Richelle Oh is a 71-year-old female with a past medical history of lung cancer, currently undergoing chemotherapy and radiation at [facility], last treatments 1 month ago, T2DM, COPD, HTN and Hyperlipidemia. The patient presented to the ER today secondary to falls.? She was previously seen earlier in the ER today due to fall and was discharged to home and returned because she fell again at home.? Over the last 10 days the patient has been to our ER four times due to falls.? She has had imaging of the Bilateral Pelvis, Right Knees, Hip, Right Femur and has had a CT of the Hip that were all negative.? On evaluation of the patient in the ER she is complaining of right ankle pain and the inability to bear weight.? Imaging of the right ankle will be ordered and if normal PT will be asked to see the patient.? The patient reports that she lives with her [id number] who brings her meals and helps with taking her to the bathroom, she is wishing to return to her prior living situation, but reports currently she is unable to do so because she cannot assist her [id number] with walking due to the inability to bear weight.? The patient will be admitted with initial impression:? Falls and Functional Decline.? Further imaging will be obtained and if negative, PT will be consulted to see.? The plan of care was discussed with the patient in length and detail at bedside in the ER.? The patient verbalized understanding and agreement with the plan of care.? Hospital Course Hospital Course Hospital Course: The patient was admitted to the medical surgical floor with orthopedic consultation. She was provided pain control medication. Orthopedic education consultant recommended conservative approach with orthopedic boot to assist with the healing process. Her laboratory studies and inflammatory markers were trended. She identified improvement and interacted with PT and OT. She reported that she could not return home secondary to difficulty with elderly sister assisting. She was amendable to transition care for skilled rehab services. Case management assisted with transition to her new site of care. She understands importance of following up with her PCP, orthopedic surgeon and oncology consultants. She is chosen to put her chemotherapy on hold for her rehab services. She is advised to see a urologist concerning some urinary retention as an inpatient. The patient's care will be transitioned to [facility] for rehab. Exam Data for Last 24 hours Vital signs and Labs for Last 24 Hours: Temp Pulse Resp BP Pulse Ox 98.0 F 102 H 17 128/74 97 03/06/22 07:57 03/06/22 07:57 03/06/22 07:57 03/06/22 07:57 03/06/22 07:57 Laboratory Results - last 24 hr 03/05/22 06:06: POC Glucose 156 H 03/05/22 11:16: POC Glucose 159 H 03/05/22 16:36: POC Glucose 205 H 03/06/22 05:52: POC Glucose 145 H 03/06/22 08:49: SARS-CoV-2 (PCR) Not detected, Influenza A Untype (PCR) Not detected, Influenza Type B (PCR) Not detected I & O for Last 24 hours: Intake & Output 03/03/22 03/04/22 03/05/22 03/06/22 23:59 23:59 23:59 23:59 Intake Total 960 / 960 1200 / 1200 900 / 900 300 / 300 Output Total 890 / 890 1025 / 1025 900 / 900 1150 / 1150 Balance 70 / 70 175 / 175 0 / 0 -850 / -850 Weight 66.735 kg 67.49 kg 67.245 kg 66.763 kg Microbiology Reports for the Last 24 Hours: Microbiology 03/04/22 10:42 Urine,Catheterized Urine Culture - Preliminary NO GROWTH AFTER 24 HOURS Radiology Reports for the Last 24 Hours: [address] [id number] XRay Report Signed Patient: Richelle Oh MR#: [id number] : 1950 Acct:[id number] Age/Sex: 71 / F ADM Date: 03/02/22 Loc: 2ND 215-[address]: Yannick Frias MD Ordering Physi
[2022-03-06 21:37] LABS: POC Glucose,Bedside 257 (70-110)
--- NOTE | 2022-03-07 14:27 | CARE MANAGER ---
Spoke with nurse at [facility] for post-discharge phone interview, she states that the patient is dong well and has no needs at this time.
== END 2022-03-06 14:31 ==
LOC: ER 22:54 → 2ND 23:36
PROVIDERS: Family Medicine; Nurse Practitioner Family; Admitting Provider Internal Medicine Adolescent Medicine; Emergency Provider Emergency Medicine; PCP Internal Medicine; Visit Provider Internal Medicine Adolescent Medicine
DX: R29.6 Repeated falls; C34.32 Malignant neoplasm of lower lobe, left bronchus or lung; E11.9 Type 2 diabetes mellitus without complications; I10 Essential (primary) hypertension; J44.9 Chronic obstructive pulmonary disease, unspecified; S82.64XA Nondisplaced fracture of lateral malleolus of right fibula, initial encounter for closed fracture; F17.210 Nicotine dependence, cigarettes, uncomplicated; Z79.84 Long term (current) use of oral hypoglycemic drugs; Z79.899 Other long term (current) drug therapy; W01.0XXA Fall on same level from slipping, tripping and stumbling without subsequent striking against object, initial encounter; Z91.81 History of falling; Y92.019 Unspecified place in single-family (private) house as the place of occurrence of the external cause; Z20.822 Contact with and (suspected) exposure to COVID-19
CPT/HCPCS: G0378; 36415; 72170; 73502; 73552; 73560; 73600; 80048; 80053; 81001; 82962; 83735; 85025; 87086; 94640; 97110; 97162; 97166; 97530; 99285; C9803; J0696; U0003; U0005